=== PATIENT | female | born 1975 | race Two or more races ===

== ENCOUNTER 2023-08-20 10:06 | Inpatient (IN) | payer MEDICARE, MEDICAID ==
[~2023-08-20] VITALS: Ht 162.6 cm; Wt 54.8 kg
[2023-08-20 10:36] VITALS: PULSE 104; RESP 17; O2SAT 98
[2023-08-20] MEDS: SODIUM CHLORIDE 0.9% 1,000 ML IV ONE (11:03)
[2023-08-20 11:26] LABS: Basophils # (auto) 0 10 ^3/uL (0-0.2); Basophils % (auto) 0.2 % (0.0-2.0); Eosinophils # (auto) 0.1 10 ^3/uL (0-0.8); Eosinophils % (auto) 1.4 % (0.0-7.0); Hematocrit 31.6 % (36.0-46.0); Hemoglobin 10.2 g/dL (12.2-16.2); Lymphocytes # (auto) 1.4 10 ^3/uL (0.4-5.4); Lymphocytes % (auto) 13.9 % (10.0-50.0); Mean Corpuscular Hgb Conc. 32.3 g/dL (32.0-36.0); Mean Corpuscular Volume 86.6 fL (80.0-100.0); Monocytes # (auto) 0.6 10 ^3/uL (0-1.3); Monocytes % (auto) 5.6 % (0.0-12.0); Neutrophils # (auto) 8.1 10 ^3/uL (1.6-8.6); Neutrophils % (auto) 78.9 % (37.0-80.0); Nucleated Red Blood Cells % 0.1 %; Red Blood Cells 3.65 10^6/uL (4.0-5.20); Red Cell Distribution Width 15.4 % (11.8-14.3); White Blood Cell 10.2 10^3/uL (4.4-10.8)
[2023-08-20 12:39] LABS: Alanine Aminotransferase 13 U/L (7-40); Albumin 3.3 g/dL (3.2-4.8); Alkaline Phosphatase 98 U/L (46-116); Anion Gap 6 (5-15); Aspartate Aminotransferase 14 U/L (13-40); Blood Urea Nitrogen 20 mg/dL (9-23); Calcium 9.1 mg/dL (8.7-10.4); Carbon Dioxide 23 mmol/L (20-30); Chloride 107 mmol/L (98-107); Glucose 92 mg/dL (74-106); Potassium 4.7 mmol/L (3.5-5.1); Sodium 136 mmol/L (136-145)
[2023-08-20 12:40] LABS: Bilirubin, Total 0.3 mg/dL (0.2-1.0); Total Protein 7.2 g/dL (5.7-8.2)
[2023-08-20] MEDS ORDERED: DOCUSATE SOD 100 MG CAP PO PRN (17:00)
[2023-08-20] MEDS ORDERED: NITROGLYCERIN 0.4 MG SL TAB SL PRN (17:00)
[2023-08-20] MEDS ORDERED: ONDANSETRON HCL 4 MG/2 ML VIAL IV PRN (17:00)
[2023-08-20] MEDS ORDERED: ACETAMINOPHEN 325 MG TAB PO PRN (17:00)
[2023-08-20] MEDS ORDERED: MORPHINE SULFATE INJ 2 MG/ml SYRG IV PRN (17:00)
[2023-08-20] MEDS: SODIUM CHLORIDE 0.9% 1,000 ML IV SCH (17:00)
[2023-08-20] MEDS ORDERED: LOSA-534 PO (17:22)
[2023-08-20] MEDS ORDERED: METO25TA93 PO (17:22)
[2023-08-20] MEDS ORDERED: FERR325T20 PO (17:22)
[2023-08-20] MEDS ORDERED: METF-371 PO (17:22)
[2023-08-20] MEDS ORDERED: ATOR10TA52 PO (17:22)
[2023-08-20] MEDS ORDERED: DEXTROSE (50%) 50ML SYRG IV PRN (18:00)
[2023-08-20 18:45] LABS: Urine Bacteria FEW /hpf (None Seen); Urine Blood TRACE /uL (Negative); Urine Clarity Turbid (Clear); Urine Color Light-Yellow (Yellow); Urine Mucus FEW (None Seen); Urine Protein, UAD Negative (Negative); Urine Specific Gravity 1.013 (1.001-1.035); Urine Urobilinogen Normal (Negative); Urine WBC 29 /hpf (0 - 5); Urine pH 5.5 (5.0-9.0)
[2023-08-20 19:20] VITALS: PULSE 102; RESP 23; O2SAT 95
[2023-08-20 22:00] VITALS: BP 110/71; PULSE 103; RESP 18; TEMP 98; O2SAT 93
[2023-08-20] MEDS: FERROUS SULFATE 325mg EC TAB PO SCH (22:00)
[2023-08-20] MEDS: InsuLIN REG 1unit/0.01ml Soln (100units/ml) SC SCH (22:00)
[2023-08-20] MEDS: ACCU-CHEK COMFORT CURVE STRIP VI SCH (22:00)
[2023-08-20 22:02] VITALS: PULSE 103
[2023-08-21 05:00] VITALS: BP 110/59; PULSE 95; RESP 18; TEMP 97.6; O2SAT 90
[2023-08-21] MEDS: PANTOPRAZOLE 40 MG TAB PO SCH (05:40)
[2023-08-21 07:28] LABS: Basophils # (auto) 0 10 ^3/uL (0-0.2); Basophils % (auto) 0.2 % (0.0-2.0); Eosinophils # (auto) 0.1 10 ^3/uL (0-0.8); Eosinophils % (auto) 1.3 % (0.0-7.0); Hematocrit 31.1 % (36.0-46.0); Hemoglobin 9.7 g/dL (12.2-16.2); Lymphocytes # (auto) 1.3 10 ^3/uL (0.4-5.4); Lymphocytes % (auto) 16.8 % (10.0-50.0); Mean Corpuscular Hemoglobin 27.8 pg (28.0-32.0); Mean Corpuscular Hgb Conc. 31.3 g/dL (32.0-36.0); Mean Corpuscular Volume 88.7 fL (80.0-100.0); Monocytes # (auto) 0.5 10 ^3/uL (0-1.3); Monocytes % (auto) 6.7 % (0.0-12.0); Neutrophils # (auto) 5.7 10 ^3/uL (1.6-8.6); Nucleated Red Blood Cells % 0.2 %; Red Cell Distribution Width 15.7 % (11.8-14.3); White Blood Cell 7.6 10^3/uL (4.4-10.8)
[2023-08-21 07:37] LABS: Alanine Aminotransferase 10 U/L (7-40); Albumin 2.9 g/dL (3.2-4.8); Alkaline Phosphatase 90 U/L (46-116); Anion Gap 5 (5-15); Aspartate Aminotransferase 15 U/L (13-40); BUN/Creatinine Ratio 24.3 (10.0-20.0); Bilirubin, Total 0.4 mg/dL (0.2-1.0); Blood Urea Nitrogen 18 mg/dL (9-23); Calcium 8.2 mg/dL (8.5-10.1); Carbon Dioxide 22 mmol/L (20-30); Chloride 110 mmol/L (98-107); Glucose 78 mg/dL (74-106); Potassium 4.7 mmol/L (3.5-5.1); Sodium 137 mmol/L (136-145); Total Protein 5.8 g/dL (5.7-8.2)
[2023-08-21 08:00] VITALS: PULSE 106; PULSE 94; RESP 20; O2SAT 20
[2023-08-21] MEDS: LOSARTAN POTASSIUM 50 MG TAB PO SCH (08:24)
[2023-08-21] MEDS: ATORVASTATIN 20 MG TAB PO SCH (08:25)
[2023-08-21] MEDS: METOPROLOL SUCCINATE XL 50 MG TAB PO SCH (08:29)
[2023-08-21 09:00] VITALS: BP 114/73; PULSE 94; RESP 20; TEMP 97.5; O2SAT 96
[2023-08-21 13:00] VITALS: BP 114/56; PULSE 70; RESP 20; TEMP 98.1; O2SAT 96
[2023-08-21] MEDS: cefTRIAXone 1GM/50ML D5W 50 ML IV ONE (16:51)
[2023-08-21] MEDS: SODIUM CHLORIDE 0.9% 1,000 ML IV SCH (16:56)
[2023-08-21 17:00] VITALS: BP 115/74; PULSE 96; RESP 20; TEMP 98.1; O2SAT 90
[2023-08-21 20:00] VITALS: PULSE 92; RESP 20; O2SAT 20
[2023-08-22] VITALS (8 sets, daily range): BP systolic 95–122; BP diastolic 59–85; PULSE 75–104; RESP 16–20; TEMP 97.1–98.7; O2SAT 20–97
[2023-08-22 07:06] LABS: Anion Gap 5 (5-15); Carbon Dioxide 24 mmol/L (20-30); Chloride 109 mmol/L (98-107); Sodium 138 mmol/L (136-145)
[2023-08-22 07:07] LABS: Calcium 8.3 mg/dL (8.5-10.1)
[2023-08-22 07:12] LABS: BUN/Creatinine Ratio 10.8 (10.0-20.0); Glucose 82 mg/dL (74-106); Triglycerides 101 mg/dL (< 150)
[2023-08-22 07:13] LABS: Blood Urea Nitrogen 8 mg/dL (9-23); LDL Cholesterol 39 mg/dL (< 100)
[2023-08-22 07:14] LABS: Cholesterol 85 mg/dL (< 200); HDL Cholesterol 33 mg/dL (40-59)
[2023-08-22 07:25] LABS: Magnesium 0.9 mg/dL (1.6-2.6)
[2023-08-22] MEDS: cefTRIAXone 1GM/50ML D5W 50 ML IV SCH (08:36)
[2023-08-22] MEDS: MAGNESIUM SULFATE 1GM/100ML 100 ML IV SCH (10:20)
[2023-08-22] MEDS: MAGNESIUM OXIDE 400 MG TAB PO SCH (13:54)
[2023-08-22] MEDS: GENTAMICIN OPTH sol 0.3% 5ml EACHEYE SCH (18:30)
[2023-08-23] VITALS (7 sets, daily range): BP systolic 91–134; BP diastolic 57–88; PULSE 61–93; RESP 16–20; TEMP 97.9–98.6; O2SAT 92–97
[2023-08-23 06:09] LABS: Anion Gap 6 (5-15); Carbon Dioxide 22 mmol/L (20-30); Chloride 108 mmol/L (98-107); Potassium 4.4 mmol/L (3.5-5.1); Sodium 136 mmol/L (136-145)
[2023-08-23 06:10] LABS: Calcium 8.5 mg/dL (8.7-10.4)
[2023-08-23 06:15] LABS: BUN/Creatinine Ratio 8.3 (10.0-20.0); Blood Urea Nitrogen 7 mg/dL (9-23); Glucose 83 mg/dL (74-106)
[2023-08-23 06:16] LABS: Magnesium 1.5 mg/dL (1.6-2.6)
[2023-08-23] MEDS: MAGNESIUM SULFATE 1GM/100ML 100 ML IV SCH (10:13)
[2023-08-23] MEDS ORDERED: GENT0.3S10 EACHEYE (14:27)
[2023-08-23] MEDS ORDERED: MAGN400T40 PO (14:27)
[2023-08-23] MEDS ORDERED: CIPR-273 PO (14:27)
== END 2023-08-23 19:21 | disposition home or self-care (01) | DRG 640 ==
LOC: EDBD 10:06 → ER 10:06 → TELE 17:22 → TELE-WESTW 17:22
PROVIDERS: ADMIT Nurse Practitioner Family; ATTEND Internal Medicine Geriatric Medicine
DX: E86.0 Dehydration (principal); G93.41 Metabolic encephalopathy; N39.0 Urinary tract infection, site not specified; Q21.10 Atrial septal defect, unspecified; R47.01 Aphasia; N28.9 Disorder of kidney and ureter, unspecified; G80.9 Cerebral palsy, unspecified; I10 Essential (primary) hypertension; E78.5 Hyperlipidemia, unspecified; E11.9 Type 2 diabetes mellitus without complications; R01.1 Cardiac murmur, unspecified; E83.42 Hypomagnesemia; I27.20 Pulmonary hypertension, unspecified; D64.9 Anemia, unspecified; Z79.84 Long term (current) use of oral hypoglycemic drugs
CPT/HCPCS: 36415; 71045; 80048; 80053; 80061; 81001; 82962; 83735; 83930; 84443; 84484; 85025; 87081; 87086; 87088; 87186; 93306; 96360; 96361; G0378; J1815

== ENCOUNTER 2023-10-17 18:33 | Inpatient (IN) | payer MEDICARE, MEDICAID ==
[~2023-10-17] VITALS: Ht 152.4 cm; Wt 53.7 kg
[2023-10-17] MEDS: levoFLOXacin 250MG 50 ML IV ONE (01:00)
[2023-10-17] MEDS: SODIUM CHLORIDE 0.9% 1,000 ML IV SCH (01:00)
[2023-10-17] MEDS: SODIUM CHLORIDE 0.9% 500 ML IVB ONE (08:00)
[~2023-10-17 18:33] MED LIST: ATOR10TA52 PO; CIPR-273 PO; FERR325T20 PO; GENT0.3S10 EACHEYE; LOSA-534 PO; MAGN400T40 PO; METF-371 PO; METO25TA93 PO
[2023-10-17 20:06] LABS: Basophils # (auto) 0 10 ^3/uL (0-0.2); Basophils % (auto) 0.2 % (0.0-2.0); Eosinophils # (auto) 0 10 ^3/uL (0-0.8); Eosinophils % (auto) 0.4 % (0.0-7.0); Hematocrit 25.8 % (36.0-46.0); Lymphocytes # (auto) 0.7 10 ^3/uL (0.4-5.4); Lymphocytes % (auto) 6.1 % (10.0-50.0); Mean Corpuscular Hemoglobin 25.9 pg (28.0-32.0); Mean Corpuscular Hgb Conc. 31.1 g/dL (32.0-36.0); Mean Corpuscular Volume 83.1 fL (80.0-100.0); Monocytes # (auto) 0.6 10 ^3/uL (0-1.3); Monocytes % (auto) 5.2 % (0.0-12.0); Neutrophils # (auto) 10.8 10 ^3/uL (1.6-8.6); Neutrophils % (auto) 88.1 % (37.0-80.0); Platelet Count (auto) 341 10^3/uL (140-450); White Blood Cell 12.3 10^3/uL (4.4-10.8)
[2023-10-17 20:34] LABS: Alanine Aminotransferase 17 U/L (7-40); Albumin 3.2 g/dL (3.2-4.8); Alkaline Phosphatase 138 U/L (46-116); Anion Gap 7 (5-15); Aspartate Aminotransferase 20 U/L (13-40); BUN/Creatinine Ratio 16.5 (10.0-20.0); Blood Urea Nitrogen 23 mg/dL (9-23); Calcium 8.5 mg/dL (8.7-10.4); Carbon Dioxide 22 mmol/L (20-30); Chloride 107 mmol/L (98-107); Glucose 164 mg/dL (74-106); Potassium 5.5 mmol/L (3.5-5.1); Sodium 136 mmol/L (136-145)
[2023-10-17 20:35] LABS: Bilirubin, Total 0.2 mg/dL (0.2-1.0); Total Protein 6.5 g/dL (5.7-8.2)
[2023-10-17 20:57] LABS: Lactic Acid w/Reflex 4.5 mmol/L (0.4-2.0)
[2023-10-17] MEDS: SODIUM CHLORIDE 0.9% 1,350 ML IV ONE (22:05)
[2023-10-17] MEDS: cefTRIAXone 1GM/50ML D5W 50 ML IV ONE (23:19)
[2023-10-17] MEDS: metroNIDAZOLE 500MG/100ML 100 ML IV ONE (23:19)
[2023-10-17] MEDS ORDERED: DEXTROSE (50%) 50ML SYRG IV PRN (23:30)
[2023-10-17] MEDS ORDERED: NITROGLYCERIN 0.4 MG SL TAB SL PRN (23:30)
[2023-10-17] MEDS ORDERED: MORPHINE SULFATE INJ 2 MG/ml SYRG IV PRN (23:30)
[2023-10-17] MEDS ORDERED: ACETAMINOPHEN 325 MG TAB PO PRN (23:30)
[2023-10-17] MEDS ORDERED: ONDANSETRON HCL 4 MG/2 ML VIAL IV PRN (23:30)
[2023-10-18] VITALS (7 sets, daily range): BP systolic 74–123; BP diastolic 40–76; PULSE 94–153; RESP 20–22; TEMP 98–101.4; O2SAT 92–99
[2023-10-18] MEDS: InsuLIN REG 1unit/0.01ml Soln (100units/ml) SC SCH (01:00)
[2023-10-18] MEDS: ACCU-CHEK COMFORT CURVE STRIP VI SCH (01:00)
[2023-10-18 01:30] LABS: Urine Bacteria FEW /hpf (None Seen); Urine Blood 2+ /uL (Negative); Urine Clarity Turbid (Clear); Urine Color Colorless (Yellow); Urine Protein, UAD Negative (Negative); Urine Specific Gravity 1.012 (1.001-1.035); Urine Urobilinogen Normal (Negative); Urine WBC 333 /hpf (0 - 5); Urine WBC Clumps PRESENT /hpf (None Seen); Urine pH 6.5 (5.0-9.0)
[2023-10-18] MEDS: dilTIAZem 25 MG/5 ML VIAL IV ONE (04:00)
[2023-10-18 04:12] LABS: Basophils # (auto) 0 10 ^3/uL (0-0.2); Eosinophils # (auto) 0 10 ^3/uL (0-0.8); Hematocrit 26.5 % (36.0-46.0); Hemoglobin 8.2 g/dL (12.2-16.2); Lymphocytes # (auto) 0.6 10 ^3/uL (0.4-5.4); Mean Corpuscular Hemoglobin 25.8 pg (28.0-32.0); Mean Corpuscular Hgb Conc. 31.1 g/dL (32.0-36.0); Mean Corpuscular Volume 83.1 fL (80.0-100.0); Monocytes # (auto) 0.6 10 ^3/uL (0-1.3); Monocytes % (auto) 5.2 % (0.0-12.0); Neutrophils # (auto) 10.4 10 ^3/uL (1.6-8.6); Neutrophils % (auto) 89.8 % (37.0-80.0); Nucleated Red Blood Cells % 0.1 %; Platelet Count (auto) 324 10^3/uL (140-450); Red Blood Cells 3.19 10^6/uL (4.0-5.20); Red Cell Distribution Width 14.9 % (11.8-14.3); White Blood Cell 11.6 10^3/uL (4.4-10.8)
[2023-10-18 04:32] LABS: Alanine Aminotransferase 20 U/L (7-40); Albumin 3.2 g/dL (3.2-4.8); Alkaline Phosphatase 132 U/L (46-116); Anion Gap 5 (5-15); Aspartate Aminotransferase 22 U/L (13-40); BUN/Creatinine Ratio 17.1 (10.0-20.0); Bilirubin, Total 0.3 mg/dL (0.2-1.0); Blood Urea Nitrogen 20 mg/dL (9-23); Calcium 8.2 mg/dL (8.7-10.4); Carbon Dioxide 23 mmol/L (20-30); Chloride 111 mmol/L (98-107); Glucose 146 mg/dL (74-106); Potassium 5.2 mmol/L (3.5-5.1); Sodium 139 mmol/L (136-145); Total Protein 6.9 g/dL (5.7-8.2)
[2023-10-18] MEDS: metroNIDAZOLE 500MG/100ML 100 ML IV SCH (06:55)
[2023-10-18] MEDS: ALBUMIN 5% 250 ML IV ONE ×2 (07:15→08:25)
[2023-10-18] MEDS: SODIUM CHLORIDE 0.9% 1,000 ML IV SCH ×2 (09:13→09:52)
[2023-10-18] MEDS: ENOXAPARIN SOD 40 MG/0.4 ML SYRINGE SC SCH (10:01)
[2023-10-18 10:38] LABS: % Iron Saturation 6.7 % (15-50)
[2023-10-18] MEDS: PIPERACILLIN-TAZO 4.5GM 100 ML IV ONE (11:09)
[2023-10-18] MEDS: PANTOPRAZOLE 40 MG/10 ML VIAL INJ IV ONE (11:30)
[2023-10-18] MEDS ORDERED: VANCOMYCIN PER PHARMACY 0 MG IV SCH (11:30)
[2023-10-18] MEDS ORDERED: PIPERACILLIN-TAZO 4.5GM 100 ML IV SCH (12:00)
[2023-10-18] MEDS: VANCOMYCIN 1.25GM/250ML 250 ML IV ONE (12:30)
[2023-10-18] MEDS: MAGNESIUM SULFATE 1GM/100ML 100 ML IV SCH (13:00)
[2023-10-18] MEDS: MEROPENEM 1GM IVPB 50 ML IV ONE (13:45)
[2023-10-18] MEDS ORDERED: PIPERACILLIN-TAZOB 3.375GM 100 ML IV SCH (14:00)
[2023-10-18] MEDS: MEROPENEM 1GM IVPB 50 ML IV SCH (14:12)
[2023-10-18 19:14] LABS: Basophils # (auto) 0 10 ^3/uL (0-0.2); Eosinophils # (auto) 0 10 ^3/uL (0-0.8); Hemoglobin 8.8 g/dL (12.2-16.2); Lymphocytes # (auto) 0.7 10 ^3/uL (0.4-5.4); Monocytes # (auto) 0.8 10 ^3/uL (0-1.3); Red Cell Distribution Width 15.4 % (11.8-14.3)
[2023-10-18 19:16] LABS: Hematocrit 29.4 % (36.0-46.0); Lymphocytes % (auto) 5.2 % (10.0-50.0); Mean Corpuscular Hemoglobin 26.1 pg (28.0-32.0); Mean Corpuscular Volume 86.8 fL (80.0-100.0); Monocytes % (auto) 6.3 % (0.0-12.0); Neutrophils # (auto) 11.2 10 ^3/uL (1.6-8.6); Neutrophils % (auto) 88.5 % (37.0-80.0); Platelet Count (auto) 326 10^3/uL (140-450); Red Blood Cells 3.39 10^6/uL (4.0-5.20); White Blood Cell 12.6 10^3/uL (4.4-10.8)
[2023-10-18 19:42] LABS: Alanine Aminotransferase 17 U/L (7-40); Albumin 3.2 g/dL (3.2-4.8); Alkaline Phosphatase 119 U/L (46-116); Anion Gap 10 (5-15); Aspartate Aminotransferase 16 U/L (13-40); Blood Urea Nitrogen 15 mg/dL (9-23); Carbon Dioxide 19 mmol/L (20-30); Chloride 109 mmol/L (98-107); Glucose 240 mg/dL (74-106); Sodium 138 mmol/L (136-145)
[2023-10-18 19:43] LABS: Magnesium 1.3 mg/dL (1.6-2.6)
[2023-10-18 19:44] LABS: Bilirubin, Total 0.5 mg/dL (0.2-1.0); Total Protein 6.8 g/dL (5.7-8.2)
[2023-10-18 19:56] LABS: Amphetamine Screen, Urine Neg (NEGATIVE); Barbiturate Scree,Urine Neg (NEGATIVE); Benzodiazephine Screen, Urine Neg (NEGATIVE); Cocaine Screen, Urine Neg (NEGATIVE); Opiate Scree,Urine Neg (NEGATIVE)
[2023-10-18 19:57] LABS: Cannabinoid Screen, Urine Neg (NEGATIVE); Phencyclidine Screen, Urine Neg (NEGATIVE)
[2023-10-18 20:13] LABS: COVID19 ANTIGEN SOFIA FIA NEGATIVE (NEGATIVE); Rapid Influenza A Negative (Negative); Rapid Influenza B Negative (Negative)
[2023-10-18] MEDS: ACETAMINOPHEN 325 MG TAB PO SCH (21:27)
[2023-10-18] MEDS: MAGNESIUM SULFATE 1GM/100ML 100 ML IV ONE (21:49)
[2023-10-18] MEDS ORDERED: levoFLOXacin 250MG 50 ML IV SCH (22:00)
[2023-10-19] VITALS (91 sets, daily range): BP systolic 74–142; BP diastolic 41–90; PULSE 78–124; RESP 11–59; TEMP 96.3–98.7; O2SAT 93–100
[2023-10-19] MEDS: SODIUM CHLORIDE 0.9% 500 ML IV ONE (00:28)
[2023-10-19] MEDS: MIDODRINE HCL 10 MG TAB PO ONE (01:00)
[2023-10-19] MEDS: VANCOMYCIN 1GM/200ML 200 ML IV SCH (02:19)
[2023-10-19] MEDS: NOREPINEPHRINE 8 MG/250ML KIT 250 ML IV SCH (03:37)
[2023-10-19 04:12] LABS: Basophils # (auto) 0 10 ^3/uL (0-0.2); Basophils % (auto) 0.1 % (0.0-2.0); Eosinophils # (auto) 0 10 ^3/uL (0-0.8); Lymphocytes # (auto) 0.7 10 ^3/uL (0.4-5.4); Monocytes # (auto) 0.6 10 ^3/uL (0-1.3)
[2023-10-19 04:14] LABS: Eosinophils % (auto) 0.4 % (0.0-7.0); Hematocrit 22.3 % (36.0-46.0); Lymphocytes % (auto) 10.5 % (10.0-50.0); Mean Corpuscular Hemoglobin 26.7 pg (28.0-32.0); Mean Corpuscular Hgb Conc. 31.1 g/dL (32.0-36.0); Mean Corpuscular Volume 85.7 fL (80.0-100.0); Monocytes % (auto) 9.2 % (0.0-12.0); Neutrophils # (auto) 5.6 10 ^3/uL (1.6-8.6); Neutrophils % (auto) 79.8 % (37.0-80.0); Platelet Count (auto) 255 10^3/uL (140-450); Red Blood Cells 2.61 10^6/uL (4.0-5.20); Red Cell Distribution Width 15.2 % (11.8-14.3)
[2023-10-19 04:23] LABS: Alanine Aminotransferase 14 U/L (7-40); Albumin 2.5 g/dL (3.2-4.8); Alkaline Phosphatase 95 U/L (46-116); Anion Gap 7 (5-15); Aspartate Aminotransferase 12 U/L (13-40); BUN/Creatinine Ratio 11.4 (10.0-20.0); Blood Urea Nitrogen 12 mg/dL (9-23); Calcium 7.2 mg/dL (8.7-10.4); Carbon Dioxide 18 mmol/L (20-30); Chloride 113 mmol/L (98-107); Glucose 103 mg/dL (74-106); Magnesium 1.7 mg/dL (1.6-2.6); Potassium 3.9 mmol/L (3.5-5.1); Sodium 138 mmol/L (136-145)
[2023-10-19 04:24] LABS: Bilirubin, Total 0.3 mg/dL (0.2-1.0); Total Protein 5.5 g/dL (5.7-8.2)
[2023-10-19] MEDS: MIDODRINE HCL 10 MG TAB PO SCH (05:22)
[2023-10-19] MEDS: PANTOPRAZOLE 40 MG/10 ML VIAL INJ IV SCH (10:25)
[2023-10-19] MEDS: AZITHROMYCIN 500MG/ 250ML 250 ML IV SCH (10:29)
[2023-10-19] MEDS: metroNIDAZOLE 500MG/100ML 100 ML IV ONE (10:31)
[2023-10-19 13:31] LABS: Basophils # (auto) 0 10 ^3/uL (0-0.2); Basophils % (auto) 0.1 % (0.0-2.0); Eosinophils # (auto) 0.1 10 ^3/uL (0-0.8); Eosinophils % (auto) 0.7 % (0.0-7.0); Hematocrit 36.6 % (36.0-46.0); Hemoglobin 11.5 g/dL (12.2-16.2); Lymphocytes # (auto) 0.5 10 ^3/uL (0.4-5.4); Lymphocytes % (auto) 5.5 % (10.0-50.0); Mean Corpuscular Hemoglobin 27.9 pg (28.0-32.0); Mean Corpuscular Hgb Conc. 31.3 g/dL (32.0-36.0); Monocytes # (auto) 0.4 10 ^3/uL (0-1.3); Monocytes % (auto) 3.9 % (0.0-12.0); Neutrophils # (auto) 8.4 10 ^3/uL (1.6-8.6); Neutrophils % (auto) 89.8 % (37.0-80.0); Platelet Count (auto) 281 10^3/uL (140-450); Red Blood Cells 4.12 10^6/uL (4.0-5.20); Red Cell Distribution Width 16.2 % (11.8-14.3); White Blood Cell 9.3 10^3/uL (4.4-10.8)
[2023-10-19] MEDS: metroNIDAZOLE 500MG/100ML 100 ML IV SCH (15:10)
[2023-10-20] VITALS (55 sets, daily range): BP systolic 88–142; BP diastolic 48–85; PULSE 24–124; RESP 10–47; TEMP 96.4–101.1; O2SAT 88–100
[2023-10-20] MEDS: ALBUTEROL SULF 2.5 MG/0.5ML(0.5%) NEB SOLN NEB PRN (03:07)
[2023-10-20 06:03] LABS: Basophils # (auto) 0 10 ^3/uL (0-0.2); Basophils % (auto) 0.2 % (0.0-2.0); Eosinophils # (auto) 0.3 10 ^3/uL (0-0.8); Hematocrit 35.1 % (36.0-46.0); Hemoglobin 11.3 g/dL (12.2-16.2); Lymphocytes # (auto) 0.6 10 ^3/uL (0.4-5.4); Lymphocytes % (auto) 6.9 % (10.0-50.0); Mean Corpuscular Hemoglobin 27.8 pg (28.0-32.0); Mean Corpuscular Hgb Conc. 32.2 g/dL (32.0-36.0); Mean Corpuscular Volume 86.6 fL (80.0-100.0); Monocytes # (auto) 0.5 10 ^3/uL (0-1.3); Monocytes % (auto) 5.2 % (0.0-12.0); Neutrophils # (auto) 7.5 10 ^3/uL (1.6-8.6); Neutrophils % (auto) 84.7 % (37.0-80.0); Nucleated Red Blood Cells % 0.1 %; Platelet Count (auto) 305 10^3/uL (140-450); Red Blood Cells 4.06 10^6/uL (4.0-5.20); Red Cell Distribution Width 15.7 % (11.8-14.3); White Blood Cell 8.9 10^3/uL (4.4-10.8)
[2023-10-20 06:23] LABS: Alanine Aminotransferase 14 U/L (7-40); Albumin 2.8 g/dL (3.2-4.8); Alkaline Phosphatase 105 U/L (46-116); Anion Gap 7 (5-15); Calcium 8.2 mg/dL (8.7-10.4); Carbon Dioxide 17 mmol/L (20-30); Chloride 114 mmol/L (98-107); Glucose 100 mg/dL (74-106); Magnesium 1.6 mg/dL (1.6-2.6); Potassium 4.1 mmol/L (3.5-5.1); Sodium 138 mmol/L (136-145)
[2023-10-20 06:24] LABS: Aspartate Aminotransferase 19 U/L (13-40); Total Protein 6.2 g/dL (5.7-8.2)
[2023-10-20 06:29] LABS: BUN/Creatinine Ratio 8.9 (10.0-20.0); Bilirubin, Total 0.4 mg/dL (0.2-1.0); Blood Urea Nitrogen 8 mg/dL (9-23)
[2023-10-20] MEDS: MAGNESIUM SULFATE 1GM/100ML 100 ML IV ONE (15:30)
[2023-10-20] MEDS: ACETAMINOPHEN 500 MG TAB PO PRN (20:27)
[2023-10-21] VITALS (27 sets, daily range): BP systolic 73–137; BP diastolic 38–97; PULSE 60–119; RESP 14–26; TEMP 96.9–98.1; O2SAT 94–100
[2023-10-21 08:52] LABS: Basophils # (auto) 0 10 ^3/uL (0-0.2); Basophils % (auto) 0.2 % (0.0-2.0); Eosinophils # (auto) 0.5 10 ^3/uL (0-0.8); Eosinophils % (auto) 6.7 % (0.0-7.0); Hemoglobin 10.9 g/dL (12.2-16.2); Lymphocytes # (auto) 1.1 10 ^3/uL (0.4-5.4); Lymphocytes % (auto) 15.6 % (10.0-50.0); Mean Corpuscular Hemoglobin 27.7 pg (28.0-32.0); Mean Corpuscular Volume 86.6 fL (80.0-100.0); Monocytes # (auto) 0.6 10 ^3/uL (0-1.3); Monocytes % (auto) 8.9 % (0.0-12.0); Neutrophils # (auto) 4.8 10 ^3/uL (1.6-8.6); Neutrophils % (auto) 68.6 % (37.0-80.0); Platelet Count (auto) 311 10^3/uL (140-450); Red Blood Cells 3.92 10^6/uL (4.0-5.20); Red Cell Distribution Width 16.3 % (11.8-14.3)
[2023-10-21 08:57] LABS: Alanine Aminotransferase 16 U/L (7-40); Albumin 2.7 g/dL (3.2-4.8); Alkaline Phosphatase 121 U/L (46-116); Anion Gap 4 (5-15); Aspartate Aminotransferase 21 U/L (13-40); BUN/Creatinine Ratio 10.1 (10.0-20.0); Bilirubin, Total 0.3 mg/dL (0.2-1.0); Blood Urea Nitrogen 10 mg/dL (9-23); Calcium 8.3 mg/dL (8.7-10.4); Carbon Dioxide 21 mmol/L (20-30); Chloride 111 mmol/L (98-107); Glucose 82 mg/dL (74-106); Magnesium 1.5 mg/dL (1.6-2.6); Potassium 4.6 mmol/L (3.5-5.1); Sodium 136 mmol/L (136-145); Total Protein 5.8 g/dL (5.7-8.2)
[2023-10-21] MEDS: MAGNESIUM SULFATE 1GM/100ML 100 ML IV SCH (13:27)
[2023-10-22] VITALS (27 sets, daily range): BP systolic 83–144; BP diastolic 44–89; PULSE 77–135; RESP 13–26; TEMP 96.9–98.6; O2SAT 92–100
[2023-10-22 08:59] LABS: Basophils # (auto) 0 10 ^3/uL (0-0.2); Basophils % (auto) 0.1 % (0.0-2.0); Eosinophils # (auto) 0.4 10 ^3/uL (0-0.8); Eosinophils % (auto) 3.8 % (0.0-7.0); Hematocrit 34.7 % (36.0-46.0); Hemoglobin 11.5 g/dL (12.2-16.2); Lymphocytes # (auto) 0.7 10 ^3/uL (0.4-5.4); Lymphocytes % (auto) 7.2 % (10.0-50.0); Mean Corpuscular Hemoglobin 28.1 pg (28.0-32.0); Mean Corpuscular Hgb Conc. 33.1 g/dL (32.0-36.0); Monocytes # (auto) 0.5 10 ^3/uL (0-1.3); Monocytes % (auto) 4.7 % (0.0-12.0); Neutrophils # (auto) 8.4 10 ^3/uL (1.6-8.6); Neutrophils % (auto) 84.2 % (37.0-80.0); Platelet Count (auto) 347 10^3/uL (140-450); Red Blood Cells 4.08 10^6/uL (4.0-5.20); Red Cell Distribution Width 16.5 % (11.8-14.3)
[2023-10-22 09:19] LABS: Alanine Aminotransferase 24 U/L (7-40); Alkaline Phosphatase 204 U/L (46-116); Anion Gap 6 (5-15); BUN/Creatinine Ratio 8.7 (10.0-20.0); Blood Urea Nitrogen 8 mg/dL (9-23); Calcium 8.9 mg/dL (8.7-10.4); Carbon Dioxide 20 mmol/L (20-30); Chloride 107 mmol/L (98-107); Glucose 95 mg/dL (74-106); Magnesium 1.8 mg/dL (1.6-2.6); Potassium 4.6 mmol/L (3.5-5.1); Sodium 133 mmol/L (136-145)
[2023-10-22 09:20] LABS: Albumin 2.8 g/dL (3.2-4.8); Aspartate Aminotransferase 45 U/L (13-40); Bilirubin, Total 0.4 mg/dL (0.2-1.0); Total Protein 6.1 g/dL (5.7-8.2)
[2023-10-22] MEDS: MAGNESIUM OXIDE 400 MG TAB PO ONE (14:21)
[2023-10-22] MEDS: METOPROLOL TARTRATE 25 MG TAB PO ONE (14:23)
[2023-10-22] MEDS: METOPROLOL TARTRATE 25 MG TAB PO SCH (21:50)
[2023-10-23] VITALS (22 sets, daily range): BP systolic 92–132; BP diastolic 49–84; PULSE 68–105; RESP 14–23; TEMP 97.1–98.5; O2SAT 87–100
[2023-10-23 05:04] LABS: Basophils # (auto) 0 10 ^3/uL (0-0.2); Basophils % (auto) 0.4 % (0.0-2.0); Eosinophils # (auto) 0.4 10 ^3/uL (0-0.8); Eosinophils % (auto) 4.4 % (0.0-7.0); Hematocrit 32.5 % (36.0-46.0); Hemoglobin 10.8 g/dL (12.2-16.2); Lymphocytes # (auto) 1.1 10 ^3/uL (0.4-5.4); Lymphocytes % (auto) 11.8 % (10.0-50.0); Mean Corpuscular Hemoglobin 28.2 pg (28.0-32.0); Mean Corpuscular Hgb Conc. 33.2 g/dL (32.0-36.0); Monocytes # (auto) 0.6 10 ^3/uL (0-1.3); Monocytes % (auto) 6.5 % (0.0-12.0); Neutrophils # (auto) 6.9 10 ^3/uL (1.6-8.6); Neutrophils % (auto) 76.9 % (37.0-80.0); Nucleated Red Blood Cells % 0.1 %; Platelet Count (auto) 339 10^3/uL (140-450); Red Blood Cells 3.82 10^6/uL (4.0-5.20); Red Cell Distribution Width 16.5 % (11.8-14.3)
[2023-10-23 05:25] LABS: Alanine Aminotransferase 33 U/L (7-40); Albumin 2.5 g/dL (3.2-4.8); Alkaline Phosphatase 293 U/L (46-116); Anion Gap 4 (5-15); Aspartate Aminotransferase 58 U/L (13-40); BUN/Creatinine Ratio 14.4 (10.0-20.0); Blood Urea Nitrogen 13 mg/dL (9-23); Calcium 8.5 mg/dL (8.7-10.4); Carbon Dioxide 24 mmol/L (20-30); Chloride 107 mmol/L (98-107); Glucose 80 mg/dL (74-106); Magnesium 1.5 mg/dL (1.6-2.6); Potassium 4.8 mmol/L (3.5-5.1); Sodium 135 mmol/L (136-145)
[2023-10-23 05:26] LABS: Bilirubin, Total 0.3 mg/dL (0.2-1.0); Total Protein 5.5 g/dL (5.7-8.2)
[2023-10-23] MEDS: MAGNESIUM SULFATE 1GM/100ML 100 ML IV SCH (07:12)
[2023-10-23] MEDS: FLORASTOR (S. BOULARDII) 250 MG CAP PO SCH (08:39)
[2023-10-23] MEDS: ERTAPENEM SOD INJ 1 GM in SODIUM CHL 0.9% 50 ML IV SCH (08:40)
[2023-10-23] MEDS: MAGNESIUM SULFATE 1GM/100ML 100 ML IV ONE (09:50)
== END 2023-10-23 18:15 | DRG 871 ==
LOC: EDBD 18:33 → ER 18:33 → TELE 23:23 → TELE-WESTW 10-18 15:18 → ICU WEST 10-19 01:38 → DOU IN ICU 10-20 16:14
PROVIDERS: ADMIT Internal Medicine; ATTEND Internal Medicine
PROC: 30233N1 Transfusion of Nonautologous Red Blood Cells into Peripheral Vein, Percutaneous Approach (ICD-10-PCS; 2023-10-19)
PROC: 05HD33Z Insertion of Infusion Device into Right Cephalic Vein, Percutaneous Approach (ICD-10-PCS; principal; 2023-10-23)
PROC: B54MZZA Ultrasonography of Right Upper Extremity Veins, Guidance (ICD-10-PCS; 2023-10-23)
DX: A41.9 Sepsis, unspecified organism (principal); G93.41 Metabolic encephalopathy; R65.21 Severe sepsis with septic shock; J69.0 Pneumonitis due to inhalation of food and vomit; J96.01 Acute respiratory failure with hypoxia; N17.0 Acute kidney failure with tubular necrosis; N39.0 Urinary tract infection, site not specified; K57.32 Diverticulitis of large intestine without perforation or abscess without bleeding; E11.9 Type 2 diabetes mellitus without complications; R62.50 Unspecified lack of expected normal physiological development in childhood; E87.5 Hyperkalemia; I10 Essential (primary) hypertension; Z20.822 Contact with and (suspected) exposure to COVID-19; G80.9 Cerebral palsy, unspecified; D50.9 Iron deficiency anemia, unspecified; I27.20 Pulmonary hypertension, unspecified; E78.5 Hyperlipidemia, unspecified; E83.42 Hypomagnesemia; K52.9 Noninfective gastroenteritis and colitis, unspecified; Z74.01 Bed confinement status
CPT/HCPCS: 36415; 36600; 71045; 74176; 80053; 80202; 80307; 81001; 82270; 82805; 82962; 83036; 83540; 83550; 83605; 83735; 83880; 84443; 84702; 85025; 86850; 86900; 86901; 86920; 87040; 87045; 87077; 87081; 87086; 87186; 87426; 87427; 87804; 92610; 94640; 96365; 96375; 99291; G0378; J1335; J1815; J2185; J2470; J2543; J3490

== ENCOUNTER 2024-04-06 10:48 | Inpatient (IN) | payer MEDICARE, MEDICAID ==
[~2024-04-06] VITALS: Ht 149.9 cm; Wt 66.5 kg
--- NOTE | 2024-04-06 11:14 | ED.PDOC ---
History of Present Illness HPI Comments 48-year-old female with past medical history of colon cancer, diabetes mellitus, hypertension, cerebral palsy,bed bound, legally blind and deaf, presents to the ED via EMS for an evaluation of hypotension today. EMS reports patient is coming from a boarding [facility] where she resides, state staff noticed hypotensive episode at 70 systolic with a heart rate of 130. On scene, EMS repeated vitals showing a blood pressure of 93 and 101 systolic with heart rate ranging in between 120-140 and SPO2 at 89-90%. Patient was placed on 2 liters oxygen via NC bringing saturation levels back up to 98%. Patient has a history of similar episode back in December 2023 which she was seen at this ED for and was diagnosed with sepsis from Urine routine showing evidence of UTI. Blood culture revealed E Coli ESBL. Chest x-ray showed possibility of aspiration pneumonia. Chief Complaint: Low Blood Pressure Time Seen by MD: 10:56 Primary Care Provider: UNKNOWN Reviewed Notes: Nurses Notes, Hadoop Infrastructure Architect Notes, Medications, Allergies Allergies: Coded Allergies: No Known Drug Allergy (Verified Allergy, Unknown, 08/20/23) Home Meds Active Scripts Magnesium Oxide (MAGNESIUM OXIDE) 400 Mg Tab, 1 TAB PO DAILY, #10 TAB Prov:VEENA CLEMENTS MD 08/23/23 Gentamicin Sulfate (Gentamicin Sulfate) 0.3 % Chani, 1 DROP EACHEYE QID for 5 Days, #5 ML Prov:VEENA CLEMENTS MD 08/23/23 Ciprofloxacin Hcl (Cipro) 250 Mg Tab, 250 MG PO BID for 5 Days, #10 TAB Prov:VEENA CLEMENTS MD 08/23/23 Reported Medications Ferrous Sulfate (Ferosul) 325 Mg Tab, 1 TAB PO BID 08/20/23 Atorvastatin Calcium (ATORVASTATIN CALCIUM) 10 Mg Tab, 1 TAB PO DAILY 08/20/23 Losartan Potassium (Losartan Potassium) 50 Mg Tab, 1 TAB PO DAILY 08/20/23 Metoprolol Succinate (Metoprolol Succinate Er) 25 Mg Tab, 0.5 TAB PO DAILY 08/20/23 Metformin Hydrochloride (Metformin Hcl) 850 Mg Tab, 1 TAB PO BID 08/20/23 Information Source: Emergency Med Personnel Mode of Arrival: EMS Severity: Moderate Timing: Hours Duration: Since onset Past Medical History PAST MEDICAL HISTORY: Cancer (colon ), DM, HTN Past Medical History (Other): Cerebral palsy, deaf, legally blind Surgical History: Denies all surgeries OFFLINE EDITOR History: Denies all OFFLINE EDITOR Hx Family History Family History: Reviewed,noncontributory to illness Social History Smoker: Non-Smoker Alcohol: Denies ETOH Use Drugs: Denies Drug Use Lives In: Assisted Care Unable to Obtain due to: Other (Patient is non verbal, deaf, blind and HX of CP ) Physical Exam General Appearance: Moderate Distress HEENT: Normal ENT Inspection, Pharynx Normal, TMs Normal Neck: Full Range of Motion, Non-Tender, Normal, Normal Inspection Respiratory: Chest Non-Tender, Lungs Clear, No Accessory Muscle Use, Normal Breath Sounds Cardiovascular: No Edema, No JVD, No Murmur, No Gallop, Normal Peripheral Pulses, Regular Rate/Rhythm Breast Exam: Deferred Gastrointestinal: Diffuse, No Organomegaly, No Pulsatile Mass, Normal Bowel Sounds, Soft, Tenderness Genitalia: Deferred Pelvic: Deferred Rectal: Deferred Extremities: No calf tenderness, Normal capillary refill, No pedal edema Musculoskeletal : Apperance: Normal Neurologic: medical nurse II-XII nml as Tested, Motor Weakness, No Sensory Deficits, Other (Altered mental status) Cerebellar Function: Unable to Test Reflexes: Normal Skin: Dry, Normal Color, Warm Lymphatic: No Adenopathy Was a procedure done? Was a procedure done?: No Differential Dx Considerations may include: Hypotension, UTI, Sepsis, Dehydration, Electrolyte imbalance, Pneumonia X-Ray, Labs, Meds, VS Vital Signs Date Time Temp Pulse Resp B/P (MAP) Pulse Ox O2 Delivery O2 Flow Rate FiO2 04/06/24 14:37 126 31 124/79 (94) 95 04/06/24 13:05 Nasal Cannula* 2 28 04/06/24 12:46 97.4 126 38 119/74 (89) 93 97.4 04/06/24 10:50 98.6 136 34 109/70 (83) 97 Lab Test 04/06/24 14:01 04/06/24 11:25 Range/Units Lactic Acid Level 2.2 *H 3.2 *H 0.4-2.0 mmol/L White Blood Count 9.7 4.4-10.8 10^3/uL Red Blood Count 3.30 L 4.0-5.20 10^6/uL Hemoglobin 9.1 L 12.2-16.2 g/dL Hematocrit 28.3 L 36.0-46.0 % Mean Corpuscular Volume 85.8 80.0-100.0 fL Mean Corpuscular Hemoglobin 27.6 L 28.0-32.0 pg Mean Corpuscular Hemoglobin Concent 32.2 32.0-36.0 g/dL Red Cell Distribution Width 22.9 H 11.8-14.3 % Platelet Count 361 140-450 10^3/uL Mean Platelet Volume 7.0 6.9-10.8 fL Neutrophils (%) (Auto) 84.7 H 37.0-80.0 % Lymphocytes (%) (Auto) 7.9 L 10.0-50.0 % Monocytes (%) (Auto) 5.7 0.0-12.0 % Eosinophils (%) (Auto) 1.5 0.0-7.0 % Basophils (%) (Auto) 0.2 0.0-2.0 % Neutrophils # (Auto) 8.2 1.6-8.6 10 ^3/uL Lymphocytes # (Auto) 0.8 0.4-5.4 10 ^3/uL Monocytes # (Auto) 0.6 0-1.3 10 ^3/uL Eosinophils # (Auto) 0.1 0-0.8 10 ^3/uL Basophils # (Auto) 0 0-0.2 10 ^3/uL Nucleated Red Blood Cells 0.0 % Platelet Estimate Adequate Anisocytosis (manual) Moderate Sodium Level 139 136-145 mmol/L Potassium Level 5.0 3.5-5.1 mmol/L Chloride Level 110 H 98-107 mmol/L Carbon Dioxide Level 19 L 20-31 mmol/L Anion Gap 10 5-15 Blood Urea Nitrogen 16 9-23 mg/dL Creatinine 1.04 H 0.550-1.02 mg/dL Glomerular Filtration Rate Calc 66 >90 mL/min BUN/Creatinine Ratio 15.4 10.0-20.0 Serum Glucose 174 H 74-106 mg/dL Calcium Level 9.7 8.7-10.4 mg/dL Total Bilirubin 0.6 0.2-1.0 mg/dL Aspartate Amino Transferase (AST) 60 H 13-40 U/L Alanine Aminotransferase (ALT) 14 7-40 U/L Alkaline Phosphatase 355 H 46-116 U/L Total Protein 7.2 5.7-8.2 g/dL Albumin 3.4 3.2-4.8 g/dL Current Medications Medications (Trade) Dose Ordered Sig/Flaca Route Start Time Stop Time Status Last Admin Sodium Chloride 1,000 ml @ 1,000 mls/hr Q1H ONCE IV 04/06/24 11:15 04/06/24 12:14 DC 04/06/24 15:45 Ceftriaxone Sodium 50 ml @ 100 mls/hr ONCE ONCE IV 04/06/24 14:45 04/06/24 15:14 DC 04/06/24 15:55 IV Hep-Lock was established The patient was given a 1 L bolus of normal saline The patient was given Rocephin IV piggyback The patient's CBC shows anemia with a hemoglobin of 9.1 and hematocrit of 28.3 The chemistry panel is within normal limits. The patient's lactic acid level is elevated at 3.2 and the 2nd one is now 2.2 Normal saline was given per sepsis protocol The patient was being admitted at this time The patient was also given vancomycin for at the septic workup The chest x-ray shows: IMPRESSION: 1. Sdzcr-ro-mpmgbvwn right pleural effusion. 2. Mild pulmonary edema versus pneumonic infiltrates. 3. Prominent left subdiaphragmatic lucency likely represents gastric distention. Pneumoperitoneum could have a similar appearance but is considered much less likely. If there is clinical concern, recommend CT. We feel that this most likely is secondary to an ammonia The patient was being admitted Images Reviewed?: Images reviewed and evaluated by me Time of 1ST Reevaluation: 11:08 Reevaluation 1ST: Unchanged Patient Education/Counseling: Other (Patient is non verbal, deaf, blind hx of CP ) Family Education/Counseling: No Family Present Departure 1 Departure Time of Disposition: 16:05 Impression: Primary Impression: Pleural effusion, right Additional Impression: Right lower lobe pneumonia Qualified Codes: J18.9 - Pneumonia, unspecified organism Disposition: ADMITTED INPATIENT Admit to: Tele Condition: Fair Critical Care Note Critical Care Time?: Yes (35 min-critical care time only) Stability Stability form required: Yes Unstable for transfer: Telemetry monitoring (Telemetry monitoring required), ED Physician Assesment (Clinical assesment) Heart Score Heart Score: Heart Score Response (Comments) Value History N/A 0 EKG N/A 0 Age N/A 0 Risk Factors N/A 0 Troponin N/A 0 Total 0 I personally scribed for WILMAN,LEOLA B MD ([email or web address]) on 04/06/24 at 11:14. Electronically submitted by Kathryn Luis ([facility]). LEOLA STOVALL MD Apr 06, 2024 11:14
[2024-04-06 11:52] LABS: Basophils # (auto) 0 10 ^3/uL (0-0.2); Basophils % (auto) 0.2 % (0.0-2.0); Eosinophils # (auto) 0.1 10 ^3/uL (0-0.8); Eosinophils % (auto) 1.5 % (0.0-7.0); Hematocrit 28.3 % (36.0-46.0); Hemoglobin 9.1 g/dL (12.2-16.2); Lymphocytes # (auto) 0.8 10 ^3/uL (0.4-5.4); Lymphocytes % (auto) 7.9 % (10.0-50.0); Mean Corpuscular Hemoglobin 27.6 pg (28.0-32.0); Mean Corpuscular Hgb Conc. 32.2 g/dL (32.0-36.0); Mean Corpuscular Volume 85.8 fL (80.0-100.0); Monocytes # (auto) 0.6 10 ^3/uL (0-1.3); Monocytes % (auto) 5.7 % (0.0-12.0); Neutrophils # (auto) 8.2 10 ^3/uL (1.6-8.6); Neutrophils % (auto) 84.7 % (37.0-80.0); Platelet Count (auto) 361 10^3/uL (140-450); White Blood Cell 9.7 10^3/uL (4.4-10.8)
[2024-04-06 12:02] LABS: Red Cell Distribution Width 22.9 % (11.8-14.3)
[2024-04-06 12:08] LABS: Alanine Aminotransferase 14 U/L (7-40); Albumin 3.4 g/dL (3.2-4.8); Anion Gap 10 (5-15); BUN/Creatinine Ratio 15.4 (10.0-20.0); Blood Urea Nitrogen 16 mg/dL (9-23); Calcium 9.7 mg/dL (8.7-10.4); Sodium 139 mmol/L (136-145)
[2024-04-06 12:09] LABS: Bilirubin, Total 0.6 mg/dL (0.2-1.0); Total Protein 7.2 g/dL (5.7-8.2)
[2024-04-06 12:10] LABS: Alkaline Phosphatase 355 U/L (46-116); Aspartate Aminotransferase 60 U/L (13-40); Carbon Dioxide 19 mmol/L (20-31); Chloride 110 mmol/L (98-107); Glucose 174 mg/dL (74-106)
[2024-04-06 12:44] LABS: Lactic Acid w/Reflex 3.2 mmol/L (0.4-2.0)
[2024-04-06 12:46] LABS: Anisocytosis Moderate; Platelet Estimate Adequate
--- NOTE | 2024-04-06 13:04 | DVH ---
CHEST RADIOGRAPH Indication: aloc Technique: Single frontal view of the chest was obtained COMPARISON: XY CHEST XRAY 1 VIEW on DOS: 10/20/23 FINDINGS: Lines and Tubes: None Lungs: There is hypoinflation with diffuse hazy mixed interstitial/ alveolar opacities. Pleura: Small to moderate right pleural effusion. No pneumothorax. Cardiomediastinal contours: Heart is similar in size from prior. Prominent subdiaphragmatic lucency o n the left side. Bones: Unremarkable IMPRESSION: 1. Zycte-ed-pxlbnabj right pleural effusion. 2. Mild pulmonary edema versus pneumonic infiltrates. 3. Prominent left subdiaphragmatic lucency likely represents gastric distention. Pneumoperitoneum cou ld have a similar appearance but is considered much less likely. If there is clinical concern, recomm end CT.
[2024-04-06] MEDS: SODIUM CHLORIDE 0.9% 1,000 ML IV ONE ×2 (15:45→17:25)
[2024-04-06] MEDS: cefTRIAXone 1GM/50ML D5W 50 ML IV ONE (15:55)
[2024-04-06] MEDS: VANCOMYCIN 1GM/250ML KIT 250 ML IV ONE (16:32)
[2024-04-06] MEDS ORDERED: MORPHINE SULFATE INJ 2 MG/ml SYRG IV PRN (19:00)
[2024-04-06] MEDS ORDERED: ONDANSETRON HCL 4 MG/2 ML VIAL IV PRN (19:00)
[2024-04-06] MEDS ORDERED: NITROGLYCERIN 0.4 MG SL TAB SL PRN (19:00)
[2024-04-06] MEDS: SODIUM CHLORIDE 0.9% 500 ML IV ONE (20:09)
[2024-04-06 22:00] VITALS: PULSE 98; RESP 20; O2SAT 96
[2024-04-06] MEDS: InsuLIN REG 1unit/0.01ml Soln (100units/ml) SC SCH (22:00)
[2024-04-06] MEDS: ACCU-CHEK COMFORT CURVE STRIP VI SCH (22:28)
[2024-04-07] MEDS: MIDODRINE HCL 10 MG TAB PO ONE (00:45)
--- NOTE | 2024-04-07 05:26 | DVHHP2 ---
History of Present Illness Reason for Visit: Hypotension History of Present Illness 48-year-old female presents for evaluation of hypotension. Patient resides at a [facility] facility. Patient with a history of cerebral palsy, bed ridden, legally blind and deaf was noted to be increasingly more lethargic in 100 her blood pressure was checked at the [facility] it was reading in the 70s. Patient was given multiple boluses of IV fluids in the emergency department currently blood pressure is ranging from 90s to 110s. Past Medical History Diabetes mellitus, hypertension, cerebral palsy colon cancer Past Surgical History None Family History Noncontributory Smoke: No ALCOHOL: none Drugs: None Lives: with Family Review of Systems Review of Systems Review of systems are currently negative otherwise addressed in HPI. Allergies: Coded Allergies: No Known Drug Allergy (Verified Allergy, Unknown, 08/20/23) Medications Current Medications Medications Dose Ordered Sig/Flaca Route Start Time Stop Time Status Last Admin Dose Admin Ceftriaxone Sodium 50 ml @ 100 mls/hr DAILY@09 IV 04/07/24 09:00 Azithromycin 250 ml @ 125 mls/hr DAILY IV 04/07/24 10:00 UNV Diagnostic Test (Pha) 1 strip ACHS 04/06/24 22:00 04/06/24 22:28 1 STRIP Insulin Human Regular ACHS SC 04/06/24 22:00 Dextrose 50 ml UD PRN IV 04/06/24 19:00 Ondansetron HCl 4 mg Q4HP PRN IV 04/06/24 19:00 Enoxaparin Sodium 30 mg DAILY SC 04/07/24 10:00 Acetaminophen 650 mg Q6HP PRN PO 04/06/24 19:00 Nitroglycerin 0.4 mg Q5MINP PRN SL 04/06/24 19:00 Morphine Sulfate 2 mg Q30M PRN IV 04/06/24 19:00 Midodrine 10 mg TID@0600,1200,1800 PO 04/07/24 06:00 UNV Exam Vital Signs Vital Signs Date Time Temp Pulse Resp B/P (MAP) Pulse Ox O2 Delivery O2 Flow Rate FiO2 04/07/24 04:00 88 04/07/24 02:30 23 99/57 (71) 99 04/06/24 22:00 Nasal Cannula* 2 28 04/06/24 12:46 97.4 97.4 Exam Gen: 48-year-old female in mild distress Skin: Warm, dry, normal color and texture, no rash. HEENT: Normocephalic atraumatic, mucous membranes moist and pink. Neck: Cervical and supraclavicular nodes normal without enlargement, trachea is midline, thyroid gland is normal without masses. Pulmonary: Clear to auscultation and percussion bilaterally. Cardiac: Regular rate and rhythm. No murmur Abdomen: Soft, nontender, nondistended, bowel sounds present all 4 quadrants, no guarding, no rigidity, no organomegaly. Extremities: No cyanosis, clubbing, no edema Neuro: Lethargic, blind and deaf Labs/Xrays ORDERING PHYSICIAN: LEOLA STOVALL MD PROCEDURE(s): CXRP - CHEST PORTABLE REASON: aloc ORDER NUMBER(s): [id number], ACCESSION NUMBER(s): [id number] CHEST RADIOGRAPH Indication: aloc Technique: Single frontal view of the chest was obtained COMPARISON: XY CHEST XRAY 1 VIEW on DOS: 10/20/23 FINDINGS: Lines and Tubes: None Lungs: There is hypoinflation with diffuse hazy mixed interstitial/ alveolar opacities. Pleura: Small to moderate right pleural effusion. No pneumothorax. Cardiomediastinal contours: Heart is similar in size from prior. Prominent subdiaphragmatic lucency on the left side. Bones: Unremarkable IMPRESSION: 1. Vnozf-ta-sftjkmyl right pleural effusion. 2. Mild pulmonary edema versus pneumonic infiltrates. 3. Prominent left subdiaphragmatic lucency likely represents gastric distention. Pneumoperitoneum could have a similar appearance but is considered much less likely. If there is clinical concern, recommend CT. Labs Test 04/06/24 22:22 04/06/24 14:01 04/06/24 11:25 Range/Units POC Glucose 95 70-106 mg/dl Lactic Acid Level 2.2 *H 0.4-2.0 mmol/L White Blood Count 9.7 4.4-10.8 10^3/uL Red Blood Count 3.30 L 4.0-5.20 10^6/uL Hemoglobin 9.1 L 12.2-16.2 g/dL Hematocrit 28.3 L 36.0-46.0 % Mean Corpuscular Volume 85.8 80.0-100.0 fL Mean Corpuscular Hemoglobin 27.6 L 28.0-32.0 pg Mean Corpuscular Hemoglobin Concent 32.2 32.0-36.0 g/dL Red Cell Distribution Width 22.9 H 11.8-14.3 % Platelet Count 361 140-450 10^3/uL Mean Platelet Volume 7.0 6.9-10.8 fL Neutrophils (%) (Auto) 84.7 H 37.0-80.0 % Lymphocytes (%) (Auto) 7.9 L 10.0-50.0 % Monocytes (%) (Auto) 5.7 0.0-12.0 % Eosinophils (%) (Auto) 1.5 0.0-7.0 % Basophils (%) (Auto) 0.2 0.0-2.0 % Neutrophils # (Auto) 8.2 1.6-8.6 10 ^3/uL Lymphocytes # (Auto) 0.8 0.4-5.4 10 ^3/uL Monocytes # (Auto) 0.6 0-1.3 10 ^3/uL Eosinophils # (Auto) 0.1 0-0.8 10 ^3/uL Basophils # (Auto) 0 0-0.2 10 ^3/uL Nucleated Red Blood Cells 0.0 % Platelet Estimate Adequate Anisocytosis (manual) Moderate Sodium Level 139 136-145 mmol/L Potassium Level 5.0 3.5-5.1 mmol/L Chloride Level 110 H 98-107 mmol/L Carbon Dioxide Level 19 L 20-31 mmol/L Anion Gap 10 5-15 Blood Urea Nitrogen 16 9-23 mg/dL Creatinine 1.04 H 0.550-1.02 mg/dL Glomerular Filtration Rate Calc 66 >90 mL/min BUN/Creatinine Ratio 15.4 10.0-20.0 Serum Glucose 174 H 74-106 mg/dL Calcium Level 9.7 8.7-10.4 mg/dL Total Bilirubin 0.6 0.2-1.0 mg/dL Aspartate Amino Transferase (AST) 60 H 13-40 U/L Alanine Aminotransferase (ALT) 14 7-40 U/L Alkaline Phosphatase 355 H 46-116 U/L Total Protein 7.2 5.7-8.2 g/dL Albumin 3.4 3.2-4.8 g/dL Assessment/Plan Assessment/Plan Assessment Sepsis Metabolic encephalopathy Community-acquired pneumonia Diabetes mellitus Acute kidney injury Possible UTI Plan Admit the patient to telemetry to the hospitalist Rocephin/azithromycin Blood cultures pending Resume home medications Continue treatment per orders Plan discussed with: Patient My Orders Orders - KENDRA CRUZ AGACNP Procedure Category Date Status Time Ceftriaxone 1gm/50ml PHA 04/07/24 In Process D5w (Rocephin) 09:00 Azithromycin 500mg/ PHA 04/07/24 Pending 250ml (Zithromax 50 10:00 Glucose Blood PHA 04/06/24 In Process (Accu-Chek Comfort 22:00 Insulin R (Human) PHA 04/06/24 In Process (Insulin R) 22:00 Dextrose 50% Syringe PHA 04/06/24 In Process 19:00 Admit ADMIT 04/06/24 Transmitted 18:56 Ondansetron Hcl PHA 04/06/24 In Process (Zofran) 19:00 Complete Blood Count LAB 04/07/24 Logged 04:00 Comprehensive LAB 04/07/24 Logged Metabolic Panel 04:00 Condition: Fair TAJ 04/06/24 In Process 18:56 Enoxaparin Sodium PHA 04/07/24 In Process (Lovenox) 10:00 Acetaminophen Tablet PHA 04/06/24 In Process (Tylenol Tablet) 19:00 Bedrest With Bathroom TAJ 04/06/24 In Process Privileg 18:56 Nitroglycerin PHA 04/06/24 In Process Sublingual (Ntrostat 19:00 Morphine Sulfate PHA 04/06/24 In Process Injection 19:00 Stat Ekg For Chest TAJ 04/06/24 In Process Pain 18:56 Notify Of Changes TAJ 04/06/24 In Process From Base 18:56 Round Kiln Drawer For TAJ 04/06/24 In Process 24 Hours 18:56 Emergency Dysrhythmia TAJ 04/06/24 In Process Protocol 18:56 Rhythm Strips Once TAJ 04/06/24 In Process Every Shift 18:56 Oxygen By Nasal RT 04/06/24 Transmitted Cannula 18:56 B-Type Natriuretic LAB 04/07/24 Logged Peptide 00:07 Cardiac DIET 04/07/24 Transmitted Diet-2gna,Lofat,Lochol Breakfast Midodrine Tablet PHA 04/07/24 Logged (Proamatine Tablet) 06:00 Urinalysis LAB 04/07/24 Logged 05:21 Date of Service: Apr 06, 2024 Billing Provider: KENDRA CRUZ Common Visit Codes: [id number] INP/OBS CARE (HIGH) KENDRA CRUZ Apr 07, 2024 05:26
[2024-04-07 05:47] LABS: Basophils # (auto) 0 10 ^3/uL (0-0.2); Basophils % (auto) 0.5 % (0.0-2.0); Eosinophils # (auto) 0.3 10 ^3/uL (0-0.8); Eosinophils % (auto) 3.1 % (0.0-7.0); Hematocrit 27.7 % (36.0-46.0); Hemoglobin 8.9 g/dL (12.2-16.2); Lymphocytes # (auto) 0.9 10 ^3/uL (0.4-5.4); Lymphocytes % (auto) 9.2 % (10.0-50.0); Mean Corpuscular Hemoglobin 27.9 pg (28.0-32.0); Mean Corpuscular Hgb Conc. 32.3 g/dL (32.0-36.0); Mean Corpuscular Volume 86.2 fL (80.0-100.0); Monocytes # (auto) 0.7 10 ^3/uL (0-1.3); Monocytes % (auto) 7.1 % (0.0-12.0); Neutrophils # (auto) 8.2 10 ^3/uL (1.6-8.6); Neutrophils % (auto) 80.1 % (37.0-80.0); Nucleated Red Blood Cells % 0.1 %; Platelet Count (auto) 360 10^3/uL (140-450); Red Blood Cells 3.21 10^6/uL (4.0-5.20); White Blood Cell 10.2 10^3/uL (4.4-10.8)
[2024-04-07 05:49] LABS: Red Cell Distribution Width 22.7 % (11.8-14.3)
[2024-04-07 06:16] LABS: Alanine Aminotransferase 11 U/L (7-40); Anion Gap 10 (5-15); Bilirubin, Total 0.5 mg/dL (0.2-1.0); Blood Urea Nitrogen 12 mg/dL (9-23); Calcium 9.3 mg/dL (8.7-10.4); Glucose 90 mg/dL (74-106); Potassium 4.9 mmol/L (3.5-5.1); Sodium 140 mmol/L (136-145); Total Protein 6.3 g/dL (5.7-8.2)
[2024-04-07 06:24] LABS: Alkaline Phosphatase 321 U/L (46-116); Aspartate Aminotransferase 60 U/L (13-40); Carbon Dioxide 19 mmol/L (20-31); Chloride 111 mmol/L (98-107)
[2024-04-07 06:25] LABS: Albumin 2.9 g/dL (3.2-4.8)
[2024-04-07] MEDS: MIDODRINE HCL 10 MG TAB PO SCH (06:55)
[2024-04-07] MEDS: cefTRIAXone 1GM/50ML D5W 50 ML IV SCH (09:22)
[2024-04-07] MEDS: ENOXAPARIN SOD 30 MG/0.3 ML SYRINGE SC SCH (10:00)
[2024-04-07] MEDS: AZITHROMYCIN 500MG/ 250ML 250 ML IV SCH (10:07)
--- NOTE | 2024-04-07 14:03 | DVHPN2 ---
Subjective Since According to her father who is at the bedside she was hypotensive at the long term where she resides and she is confused but today she is doing better She is on hospice in a board and long term for metastatic colon cancer Changes from previous H/P or p: Changes Objective Vitals Vital Signs Date Time Temp Pulse Resp B/P (MAP) Pulse Ox O2 Delivery O2 Flow Rate FiO2 04/07/24 13:00 105 21 111/75 (87) 100 04/07/24 07:28 Nasal Cannula* 2 28 04/07/24 07:28 97.9 97.9 Intake/Output Intake and Output 04/07/24 07:00 Intake Total 1950 ml Balance 1950 ml Intake IV Total 1950 ml General Appearance: Alert, Other (Disoriented to place and time) Lungs: Other (Bilateral rhonchi) Cardiovascular: Regular rate, Normal S1, Normal S2, No murmurs Abdomen: Normal bowel sounds, Soft, No tenderness Extremities: No edema Medications Current Medications Medications Dose Ordered Sig/Flaca Route Start Time Stop Time Status Last Admin Dose Admin Ceftriaxone Sodium 50 ml @ 100 mls/hr DAILY@09 IV 04/07/24 09:00 04/07/24 09:22 100 MLS/HR Azithromycin 250 ml @ 125 mls/hr DAILY IV 04/07/24 10:00 04/07/24 10:07 125 MLS/HR Diagnostic Test (Pha) 1 strip ACHS 04/06/24 22:00 04/07/24 11:30 1 STRIP Insulin Human Regular ACHS SC 04/06/24 22:00 Dextrose 50 ml UD PRN IV 04/06/24 19:00 Ondansetron HCl 4 mg Q4HP PRN IV 04/06/24 19:00 Enoxaparin Sodium 30 mg DAILY SC 04/07/24 10:00 04/07/24 10:00 30 MG Acetaminophen 650 mg Q6HP PRN PO 04/06/24 19:00 Nitroglycerin 0.4 mg Q5MINP PRN SL 04/06/24 19:00 Morphine Sulfate 2 mg Q30M PRN IV 04/06/24 19:00 Midodrine 10 mg TID@0600,1200,1800 PO 04/07/24 06:00 04/07/24 12:22 10 MG Laboratory Results Laboratory Tests 04/07/24 05:29 Chemistry Test 04/07/24 05:29 Albumin 2.9 g/dL (3.2-4.8) L Calcium Level 9.3 mg/dL (8.7-10.4) Total Protein 6.3 g/dL (5.7-8.2) Cardiac Markers Test 04/07/24 05:29 B-Type Natriuretic Peptide 74.30 pg/mL (0-100) LFT Test 04/07/24 05:29 Alanine Aminotransferase (ALT) 11 U/L (7-40) Alkaline Phosphatase 321 U/L (46-116) H Aspartate Amino Transferase (AST) 60 U/L (13-40) H Total Bilirubin 0.5 mg/dL (0.2-1.0) Microbiology Microbiology Date/Time Source Procedure Growth Status 04/06/24 11:25 Blood Blood Culture - Preliminary NO GROWTH AFTER 24 HOURS OF INCUBATION. Resulted Assessment/Plan Assessment/Plan Sepsis Metabolic encephalopathy Rule out UTI Type 2 diabetic Colon cancer Possible underlying pneumonia Acute kidney injury hemodynamically mediated Recent diagnosis of colon cancer metastatic to the liver according to her father Lactic acidosis Chronic anemia Plan Broad-spectrum antibiotics Get a UA and urine culture Blood culture Discussed with the father at the bedside DNR Advance directives discussed for 15 minutes Plan discussed with: Patient, Other My Orders Orders - VEENA CLEMENTS MD Procedure Category Date Status Time Urine Bacterial DOMENICO 04/07/24 Verified Culture 13:59 Date of Service: Apr 07, 2024 Billing Provider: VEENA CLEMENTS MD Common Visit Codes: [id number] INP/OBS CARE(HIGH) (code) Secondary Visit Codes: [id number] CARE PLAN 30 MINUTES VEENA CLEMENTS MD Apr 07, 2024 14:03
[2024-04-07 16:22] LABS: Urine Bacteria FEW /hpf (None Seen); Urine Blood Negative /uL (Negative); Urine Budding Yeast OCCASIONAL /hpf (None Seen); Urine Clarity Turbid (Clear); Urine Color Yellow (Yellow); Urine Mucus FEW (None Seen); Urine Protein, UAD TRACE (Negative); Urine Specific Gravity 1.015 (1.001-1.035); Urine Squamous Epithelial Cell None Seen /hpf (<5); Urine Urobilinogen Normal (Negative); Urine WBC 2 /HPF (0-5)
[2024-04-07 16:43] VITALS: PULSE 111; RESP 18; O2SAT 97
[2024-04-07 17:00] VITALS: BP 115/71; PULSE 111; RESP 19; TEMP 98.3; O2SAT 97
[2024-04-07 17:06] VITALS: BP 115/71; PULSE 111; RESP 18; TEMP 98.3; O2SAT 97
[2024-04-07 20:00] VITALS: PULSE 115
[2024-04-07 21:00] VITALS: BP 110/69; PULSE 105; RESP 21; TEMP 97.5; O2SAT 97
[2024-04-08] VITALS (8 sets, daily range): BP systolic 101–129; BP diastolic 59–79; PULSE 107–133; RESP 14–21; TEMP 97.7–99.1; O2SAT 95–99
[2024-04-08 07:10] LABS: Alanine Aminotransferase 16 U/L (7-40); Anion Gap 8 (5-15); BUN/Creatinine Ratio 12.5 (10.0-20.0); Blood Urea Nitrogen 13 mg/dL (9-23); Calcium 9.6 mg/dL (8.7-10.4); Glucose 86 mg/dL (74-106); Sodium 138 mmol/L (136-145)
[2024-04-08 07:11] LABS: Bilirubin, Total 0.3 mg/dL (0.2-1.0); Total Protein 6.5 g/dL (5.7-8.2)
[2024-04-08 07:17] LABS: Carbon Dioxide 19 mmol/L (20-31); Chloride 111 mmol/L (98-107); Potassium 5.2 mmol/L (3.5-5.1)
[2024-04-08 07:18] LABS: Alkaline Phosphatase 352 U/L (46-116); Aspartate Aminotransferase 119 U/L (13-40); Magnesium 1.2 mg/dL (1.6-2.6)
[2024-04-08 07:31] LABS: Basophils # (auto) 0 10 ^3/uL (0-0.2); Basophils % (auto) 0.3 % (0.0-2.0); Eosinophils # (auto) 0.3 10 ^3/uL (0-0.8); Eosinophils % (auto) 3.3 % (0.0-7.0); Hemoglobin 9.1 g/dL (12.2-16.2); Lymphocytes % (auto) 10.2 % (10.0-50.0); Mean Corpuscular Hemoglobin 27.4 pg (28.0-32.0); Mean Corpuscular Hgb Conc. 31.3 g/dL (32.0-36.0); Mean Corpuscular Volume 87.4 fL (80.0-100.0); Monocytes # (auto) 0.8 10 ^3/uL (0-1.3); Monocytes % (auto) 8.2 % (0.0-12.0); Nucleated Red Blood Cells % 0.1 %; Platelet Count (auto) 379 10^3/uL (140-450); Red Blood Cells 3.32 10^6/uL (4.0-5.20); Red Cell Distribution Width 22.7 % (11.8-14.3); White Blood Cell 10.2 10^3/uL (4.4-10.8)
--- NOTE | 2024-04-08 10:09 | DVHPN2 ---
Subjective Looks uncomfortable Heart rate is in the 130s Changes from previous H/P or p: Changes Objective Vitals Vital Signs Date Time Temp Pulse Resp B/P (MAP) Pulse Ox O2 Delivery O2 Flow Rate FiO2 04/08/24 05:00 98.0 113 21 125/79 (94) 95 98.0 04/07/24 16:43 Nasal Cannula* 1 24 Intake/Output Intake and Output 04/08/24 07:00 Intake Total 600 ml Balance 600 ml Intake Oral 300 ml IV Total 300 ml # Voids 1 General Appearance: Alert, Other (Disoriented to place and time) Lungs: Other (Bilateral rhonchi) Cardiovascular: Regular rate, Normal S1, Normal S2, No murmurs Abdomen: Normal bowel sounds, Soft, No tenderness Extremities: No edema Medications Current Medications Medications Dose Ordered Sig/Flaca Route Start Time Stop Time Status Last Admin Dose Admin Ceftriaxone Sodium 50 ml @ 100 mls/hr DAILY@09 IV 04/07/24 09:00 04/08/24 09:29 100 MLS/HR Azithromycin 250 ml @ 125 mls/hr DAILY IV 04/07/24 10:00 04/07/24 10:07 125 MLS/HR Diagnostic Test (Pha) 1 strip ACHS 04/06/24 22:00 04/08/24 06:07 1 STRIP Insulin Human Regular ACHS SC 04/06/24 22:00 04/07/24 22:08 2 UNITS Dextrose 50 ml UD PRN IV 04/06/24 19:00 Ondansetron HCl 4 mg Q4HP PRN IV 04/06/24 19:00 Enoxaparin Sodium 30 mg DAILY SC 04/07/24 10:00 04/08/24 09:29 30 MG Acetaminophen 650 mg Q6HP PRN PO 04/06/24 19:00 Nitroglycerin 0.4 mg Q5MINP PRN SL 04/06/24 19:00 Morphine Sulfate 2 mg Q30M PRN IV 04/06/24 19:00 Midodrine 10 mg TID@0600,1200,1800 PO 04/07/24 06:00 04/07/24 18:11 10 MG Magnesium Sulfate/ Dextrose 100 ml @ 100 mls/hr Q1HR IV 04/08/24 11:00 04/08/24 12:59 UNV Laboratory Results Laboratory Tests 04/08/24 05:06 Chemistry Test 04/08/24 05:06 Albumin 3.0 g/dL (3.2-4.8) L Calcium Level 9.6 mg/dL (8.7-10.4) Magnesium Level 1.2 mg/dL (1.6-2.6) L Total Protein 6.5 g/dL (5.7-8.2) LFT Test 04/08/24 05:06 Alanine Aminotransferase (ALT) 16 U/L (7-40) Alkaline Phosphatase 352 U/L (46-116) H Aspartate Amino Transferase (AST) 119 U/L (13-40) H Total Bilirubin 0.3 mg/dL (0.2-1.0) Urinalysis Test 04/07/24 15:48 Urine Color Yellow (Yellow) Urine Clarity Turbid (Clear) H Urine pH 5.0 (5.0-9.0) Urine Specific [place] 1.015 (1.001-1.035) Urine Protein Trace (Negative) H Urine Ketones Negative (Negative) Urine Blood Negative /uL (Negative) Urine Nitrite Negative (Negative) Urine Bilirubin Negative (Negative) Urine Urobilinogen Normal mg/dL (Negative) Urine Leukocyte Esterase Negative /uL (Negative) Urine RBC <1 /hpf (0 - 4) Urine Microscopic WBC 2 /HPF (0-5) Urine Squamous Epithelial Cells None seen /hpf (<5) Urine Bacteria Few /hpf (None Seen) H Urine Granular Casts Few /lpf (0) Urine Mucus Few (None Seen) Urine Yeast (Budding) Occasional /hpf (None Urine Glucose Normal mg/dL (Normal) Microbiology Microbiology Date/Time Source Procedure Growth Status 04/07/24 15:48 Urine - Catheterized Urine Culture - Preliminary Resulted 04/06/24 11:25 Blood Blood Culture - Preliminary NO GROWTH AFTER 24 HOURS OF INCUBATION. Resulted Assessment/Plan Assessment/Plan Sepsis Metabolic encephalopathy Rule out UTI Type 2 diabetic Colon cancer Possible underlying pneumonia Acute kidney injury hemodynamically mediated Recent diagnosis of colon cancer metastatic to the liver according to her father Lactic acidosis Chronic anemia Hypomagnesemia Plan 04/07/2024: Broad-spectrum antibiotics Get a UA and urine culture Blood culture Discussed with the father at the bedside DNR Advance directives discussed for 15 minutes 04/08/2024: Sepsis with tachycardia: Give a bolus of IV fluids 500 mL normal saline Hypomagnesemia: Replace IV magnesium Sepsis: Continue IV antibiotics Dehydration: Start IV fluids Hyperkalemia: IV fluids Pneumonia: Rocephin and Zithromax Plan discussed with: Patient, Other My Orders Orders - VEENA CLEMENTS MD Procedure Category Date Status Time Urine Bacterial DOMENICO 04/07/24 In Process Culture 13:59 Code Status CODE 04/07/24 Transmitted 14:01 Mrsa Screen DOMENICO 04/07/24 In Process 16:57 Sodium Chloride 0.9% PHA 04/08/24 Logged 10:15 Magnesium Sulfate PHA 04/08/24 Logged 1gm/100ml 11:00 Date of Service: Apr 08, 2024 Billing Provider: VEENA CLEMENTS MD Common Visit Codes: [id number] INP/OBS CARE(HIGH) VEENA CLEMENTS MD Apr 08, 2024 10:09
[2024-04-08] MEDS: SODIUM CHLORIDE 0.9% 500 ML IV ONE (10:15)
[2024-04-08] MEDS: ACETAMINOPHEN 325 MG TAB PO PRN (11:00)
[2024-04-08] MEDS: MAGNESIUM SULFATE 1GM/100ML 100 ML IV SCH (12:00)
[2024-04-08] MEDS: SODIUM CHLORIDE 0.9% 1,000 ML IV SCH (12:40)
--- NOTE | 2024-04-08 14:00 | DVH ---
EXAM: XY CHEST PORTABLE HISTORY: pneumonia COMPARISON: Chest x-ray dated 04/06/2024. TECHNIQUE: Portable upright AP view of the chest was performed. FINDINGS: There is opacification of the inferior 2/3 of the right hemithorax, increased versus prior chest x-ra y. There are diffuse interstitial opacities bilaterally. No pneumothorax. The right heart border is o bscured. IMPRESSION: 1. Increased right pleural effusion and consolidation, now with opacification of the inferior 2/3 of the right hemithorax. 2. Diffuse interstitial opacities suggestive of pulmonary edema.
--- NOTE | 2024-04-08 16:27 | DVHINCON2 ---
LEWIS LORENZO [facility] 04/08/24 1627: Date Seen: Apr 08, 2024 Referring Physician MD Luis Carlos Reason for Consultation Tachycardia History of Present Illness This is a 48-year-old female patient who presents to the emergency room for chief complaint of hypotension. At the time of assessment, the patient's father is at bedside and is able to provide an accurate history given that the patient has cerebral palsy and is nonverbal. Per the patient's father, the patient lives at [facility]. Staff members noticed that the patient's blood pressure was low and she was brought to the emergency room for further evaluation. Cardiology has been consulted at this time for tachycardia. A twelve lead electrocardiogram was obtained at time that patient was noted to go into tachycardia and reveals sinus tachycardia. Significant past medical history includes congenital heart disease, dyslipidemia, type 2 diabetes mellitus, cerebral palsy and is nonverbal, and colon cancer with metastasis. The patient's father reports that she is not following up with a patient navigator in the outpatient setting. He reports a recent diagnosis of colon cancer with metastasis and states that the patient was given approximately 3-6 months to live. Past Medical History Past medical history reviewed. No other significant than mentioned above. Past Surgical History Denies all previous surgeries Family History: Patient reports no known family medical history. Family History Family history reviewed. Social History Denies the use of tobacco, alcohol or illicit drugs. Allergies: Coded Allergies: No Known Drug Allergy (Verified Allergy, Unknown, 08/20/23) Home Meds Active Scripts Magnesium Oxide (MAGNESIUM OXIDE) 400 Mg Tab, 1 TAB PO DAILY, #10 TAB Prov:VEENA CLEMENTS MD 08/23/23 Gentamicin Sulfate (Gentamicin Sulfate) 0.3 % Chani, 1 DROP EACHEYE QID for 5 Days, #5 ML Prov:VEENA CLEMENTS MD 08/23/23 Ciprofloxacin Hcl (Cipro) 250 Mg Tab, 250 MG PO BID for 5 Days, #10 TAB Prov:VEENA CLEMENTS MD 08/23/23 Reported Medications Ferrous Sulfate (Ferosul) 325 Mg Tab, 1 TAB PO BID 08/20/23 Atorvastatin Calcium (ATORVASTATIN CALCIUM) 10 Mg Tab, 1 TAB PO DAILY 08/20/23 Losartan Potassium (Losartan Potassium) 50 Mg Tab, 1 TAB PO DAILY 08/20/23 Metoprolol Succinate (Metoprolol Succinate Er) 25 Mg Tab, 0.5 TAB PO DAILY 08/20/23 Metformin Hydrochloride (Metformin Hcl) 850 Mg Tab, 1 TAB PO BID 08/20/23 Home Meds Home medications reviewed. Current Medications Current Medications Medications (Trade) Dose Ordered Sig/Flaca Route PRN Reason Start Time Stop Time Status Last Admin Magnesium Sulfate/ Dextrose 100 ml @ 100 mls/hr Q1HR IV 04/08/24 11:00 04/08/24 12:59 DC 04/08/24 12:00 Sodium Chloride 1,000 ml @ 60 mls/hr [id number] IV 04/08/24 10:15 04/08/24 12:40 Mupirocin (Bactroban 2% Ointment) 1 applic BID EACHNOSTRI 04/08/24 22:00 04/13/24 21:59 Review of Systems Constitutional: Generalized weakness Ears, Nose, & Throat: No symptom reported Eyes: No symptom reported Neurological: No symptoms reported Pulmonary/Respiratory: No symptoms reported Cardiovascular: No symptom reported Gastrointestinal: No symptom reported Genitourinary: No symptom reported Musculoskeletal: No symptom reported Skin: No symptom reported Psychiatric: No symptom reported Endocrine: No symptom reported Hematologic/Lymphatic: No symptom reported Vital Signs Vital Signs Date Time Temp Pulse Resp B/P (MAP) Pulse Ox O2 Delivery O2 Flow Rate FiO2 04/08/24 13:00 99.1 133 20 121/60 (80) 98 99.1 04/08/24 08:00 Nasal Cannula* 2 28 Physical Exam General Appearance: Calm, relaxed Pulmonary/Respiratory: Clear, bilateral breaths sounds. Cardiovascular/Chest: Regular rate and rhythm. Peripheral Pulses: 2+ Radial (R). 2+ Radial (L). 2+ Pedal (R). 2+ Pedal (L) Abdominal Exam: Normal bowel sounds. Abdomen appears distended Ankle Exam: Negative ankle edema Lower extremities: Negative lower extremity edema Neuro/Mental Status: Unable to assess Thoughts/Psych: Deferred Appearance: No acute distress. Skin Exam: Normal inspection. Normal color. Warm and dry. Labs/Diagnostic Data Labs Test 04/08/24 11:32 04/08/24 05:06 04/07/24 15:48 04/07/24 05:29 Range/Units POC Glucose 169 H 70-106 mg/dl White Blood Count 10.2 4.4-10.8 10^3/uL Red Blood Count 3.32 L 4.0-5.20 10^6/uL Hemoglobin 9.1 L 12.2-16.2 g/dL Hematocrit 29.0 L 36.0-46.0 % Mean Corpuscular Volume 87.4 80.0-100.0 fL Mean Corpuscular Hemoglobin 27.4 L 28.0-32.0 pg Mean Corpuscular Hemoglobin Concent 31.3 L 32.0-36.0 g/dL Red Cell Distribution Width 22.7 H 11.8-14.3 % Platelet Count 379 140-450 10^3/uL Mean Platelet Volume 6.9 6.9-10.8 fL Neutrophils (%) (Auto) 78.0 37.0-80.0 % Lymphocytes (%) (Auto) 10.2 10.0-50.0 % Monocytes (%) (Auto) 8.2 0.0-12.0 % Eosinophils (%) (Auto) 3.3 0.0-7.0 % Basophils (%) (Auto) 0.3 0.0-2.0 % Neutrophils # (Auto) 8.0 1.6-8.6 10 ^3/uL Lymphocytes # (Auto) 1.0 0.4-5.4 10 ^3/uL Monocytes # (Auto) 0.8 0-1.3 10 ^3/uL Eosinophils # (Auto) 0.3 0-0.8 10 ^3/uL Basophils # (Auto) 0 0-0.2 10 ^3/uL Nucleated Red Blood Cells 0.1 % Sodium Level 138 136-145 mmol/L Potassium Level 5.2 H 3.5-5.1 mmol/L Chloride Level 111 H 98-107 mmol/L Carbon Dioxide Level 19 L 20-31 mmol/L Anion Gap 8 5-15 Blood Urea Nitrogen 13 9-23 mg/dL Creatinine 1.04 H 0.550-1.02 mg/dL Glomerular Filtration Rate Calc 66 >90 mL/min BUN/Creatinine Ratio 12.5 10.0-20.0 Serum Glucose 86 74-106 mg/dL Hemoglobin A1c 5.8 H <5.7 % A1C Calcium Level 9.6 8.7-10.4 mg/dL Magnesium Level 1.2 L 1.6-2.6 mg/dL Total Bilirubin 0.3 0.2-1.0 mg/dL Aspartate Amino Transferase (AST) 119 H 13-40 U/L Alanine Aminotransferase (ALT) 16 7-40 U/L Alkaline Phosphatase 352 H 46-116 U/L Total Protein 6.5 5.7-8.2 g/dL Albumin 3.0 L 3.2-4.8 g/dL Thyroid Stimulating Hormone (TSH) 3.18 0.55-4.78 uIU/mL Urine Color Yellow Yellow Urine Clarity Turbid H Clear Urine pH 5.0 5.0-9.0 Urine Specific [place] 1.015 1.001-1.035 Urine Protein Trace H Negative Urine Ketones Negative Negative Urine Blood Negative Negative /uL Urine Nitrite Negative Negative Urine Bilirubin Negative Negative Urine Urobilinogen Normal Negative mg/dL Urine Leukocyte Esterase Negative Negative /uL Urine RBC <1 0 - 4 /hpf Urine Microscopic WBC 2 0-5 /HPF Urine Squamous Epithelial Cells None seen <5 /hpf Urine Bacteria Few H None Seen /hpf Urine Granular Casts Few 0 /lpf Urine Mucus Few None Seen Urine Yeast (Budding) Occasional None Seen /hpf Urine Glucose Normal Normal mg/dL B-Type Natriuretic Peptide 74.30 0-100 pg/mL Test 04/06/24 14:01 04/06/24 11:25 Range/Units Lactic Acid Level 2.2 *H 0.4-2.0 mmol/L Platelet Estimate Adequate Anisocytosis (manual) Moderate Microbiology Date/Time Source Procedure Growth Status 04/07/24 17:10 Nose MRSA Screen - Final Methicillin Resistant S.aureus Complete 04/07/24 15:48 Urine - Catheterized Urine Culture - Preliminary Resulted 04/06/24 11:25 Blood Blood Culture - Preliminary NO GROWTH AFTER 48 HOURS OF INCUBATION. Resulted Assessment Sinus tachycardia Rule out pulmonary embolism Congenital heart disease ?Pneumonia Right pleural effusion Severe hypomagnesemia Chronic anemia Metastatic colon cancer History of cerebral palsy Plan/Recommendation We will continue following plan/recommendations (Dr. Bhatia): Case discussed and reviewed with . Sinus tachycardia likely secondary to infection. TSH and D-dimer ordered to assess for other possible causes. We will obtain a transthoracic echocardiogram to evaluate cardiac function. Continue with cardiac surveillance. Thank you for allowing us to care for this patient. Please call with any questions or concerns. Critical care time spent: 42 minutes This medical document was created using an electronic medical record system with voice recognition software and computerized dictation system. Although this document has been carefully reviewed, there might still be some phonetic and typographical errors. Occasional wrong-word or ``sound-alike substitutions may have occurred due to the inherent limitations of voice recognition software. These areas are purely typographical due to imperfections of the software pr ograms and do not reflect any compromise in the patient's medical care. Please read the chart carefully and recognize, using context, where these substitutions have occurred. Plan discussed with: Patient NYHA Physical activity limitations: NA Date of Service: Apr 08, 2024 Billing Provider: LEWIS LORENZO Cardiology Common Codes: [id number] INP/OBS CARE (High) Cardiology Consultation Codes: [id number] CONSULT <45MIN KYLE BHATIA MD 04/08/241953: Family History: Patient reports no known family medical history. Allergies: Coded Allergies: No Known Drug Allergy (Verified Allergy, Unknown, 08/20/23) Home Meds Active Scripts Magnesium Oxide (MAGNESIUM OXIDE) 400 Mg Tab, 1 TAB PO DAILY, #10 TAB Prov:VEENA CLEMENTS MD 08/23/23 Gentamicin Sulfate (Gentamicin Sulfate) 0.3 % Chani, 1 DROP EACHEYE QID for 5 Days, #5 ML Prov:VEENA CLEMENTS MD 08/23/23 Ciprofloxacin Hcl (Cipro) 250 Mg Tab, 250 MG PO BID for 5 Days, #10 TAB Prov:VEENA CLEMENTS MD 08/23/23 Reported Medications Ferrous Sulfate (Ferosul) 325 Mg Tab, 1 TAB PO BID 08/20/23 Atorvastatin Calcium (ATORVASTATIN CALCIUM) 10 Mg Tab, 1 TAB PO DAILY 08/20/23 Losartan Potassium (Losartan Potassium) 50 Mg Tab, 1 TAB PO DAILY 08/20/23 Metoprolol Succinate (Metoprolol Succinate Er) 25 Mg Tab, 0.5 TAB PO DAILY 08/20/23 Metformin Hydrochloride (Metformin Hcl) 850 Mg Tab, 1 TAB PO BID 08/20/23 Plan/Recommendation d dimer is quite high, very high vte risk given non ambulatory, will start anticoag now for possible PE cta may not be accurate given pt cannot respond to commands and suboptimal imaging consider goals of care for pt very poor prognosis d/w RN Plan discussed with: Other (rn) LEWIS LORENZO Apr 08, 2024 16:27 KYLE BHATIA MD Apr 08, 2024 19:54
[2024-04-08] MEDS: MUPIROCIN 2% OINT 15gm or 22gm FOR MRSA NARES EACHNOSTRI SCH (22:00)
[2024-04-08] MEDS: ENOXAPARIN SOD 60 MG/0.6 ML SYRINGE SC SCH (22:28)
[2024-04-09] VITALS (8 sets, daily range): BP systolic 78–132; BP diastolic 36–74; PULSE 18–137; RESP 14–24; TEMP 98.1–100.9; O2SAT 90–98
[2024-04-09 09:23] LABS: Basophils # (auto) 0.1 10 ^3/uL (0-0.2); Basophils % (auto) 0.4 % (0.0-2.0); Eosinophils # (auto) 0 10 ^3/uL (0-0.8); Eosinophils % (auto) 0.1 % (0.0-7.0); Hematocrit 26.9 % (36.0-46.0); Hemoglobin 8.5 g/dL (12.2-16.2); Lymphocytes # (auto) 0.9 10 ^3/uL (0.4-5.4); Mean Corpuscular Hemoglobin 27.3 pg (28.0-32.0); Mean Corpuscular Hgb Conc. 31.5 g/dL (32.0-36.0); Mean Corpuscular Volume 86.6 fL (80.0-100.0); Monocytes # (auto) 1.3 10 ^3/uL (0-1.3); Monocytes % (auto) 8.3 % (0.0-12.0); Neutrophils # (auto) 13.1 10 ^3/uL (1.6-8.6); Neutrophils % (auto) 85.2 % (37.0-80.0); Platelet Count (auto) 359 10^3/uL (140-450); Red Blood Cells 3.11 10^6/uL (4.0-5.20); Red Cell Distribution Width 22.9 % (11.8-14.3); White Blood Cell 15.4 10^3/uL (4.4-10.8)
[2024-04-09 09:43] LABS: BUN/Creatinine Ratio 12.1 (10.0-20.0)
[2024-04-09 10:58] LABS: Blood Urea Nitrogen 15 mg/dL (9-23); Calcium 9.1 mg/dL (8.7-10.4); Carbon Dioxide 17 mmol/L (20-31); Glucose 127 mg/dL (74-106); Magnesium 1.8 mg/dL (1.6-2.6)
[2024-04-09 11:41] LABS: Sodium 137 mmol/L (136-145)
[2024-04-09 11:42] LABS: Anion Gap 8 (5-15); Chloride 112 mmol/L (98-107); Potassium 5.2 mmol/L (3.5-5.1)
[2024-04-09 12:22] LABS: Cholesterol 123 mg/dL (< 200); LDL Cholesterol 77 mg/dL (< 100)
[2024-04-09 12:26] LABS: HDL Cholesterol 19 mg/dL (40-59); Triglycerides 169 mg/dL (< 150)
--- NOTE | 2024-04-09 13:23 | ECG ---
[facility] Test Date: 2024-04-08 Test Time: 14:58:58 Pat Name: MARIA L OVIEDO Department: Respiratoy Room: [address] [place] [address] Gender: F Health Information Clerk: JERED : 1975 Requested By: VEENA CLEMENTS Order Number: [id number] Reading MD: Brooks [place] Measurements Intervals [place] Rate: 118 P: 36 [place]: 142 QRS: 189 QRSD: 64 T: 11 QT: 326 QTc: 457 Interpretive Statements Sinus tachycardia Probable left atrial enlargement Low voltage, precordial leads Consider right ventricular hypertrophy Electronically Signed On 04-10-2024 9:34:26 PST by Brooks Wells Please click the below link to view image of tracing.
--- NOTE | 2024-04-09 13:33 | DVHINCON2 ---
Date of service: Apr 09, [address] Aldridge Reason for Consultation Acute hypoxic respiratory failure and pneumonia History of Present Illness A 48-year-old woman with PMHx of diabetes mellitus, hypertension, cerebral palsy, and colon cancer who presented to ED on 04/07/24 for evaluation of hypotension. Patient resides [facility]. She is bedridden, legally blind and deaf. Patient was noted to be increasingly more lethargic at the [facility] with blood pressure reading in the 70s and was brought to the ED. She was given multiple boluses of IV fluids in the emergency department with blood pressure ranging from 90s to 110s. Patient was admitted for further care. Pulmonary consultation is requested for evaluation and management of acute hypoxic respiratory failure and pneumonia. Review of Systems: 14-point review of systems negative unless otherwise noted above. Past Medical History: Diabetes mellitus, hypertension, cerebral palsy, colon cancer, bedridden status, legally blind and deaf. Past Surgical History: None Medications: Reviewed. Allergies: No known drug allergies. Family History: No family history of premature CAD. No family history of lung disorders. Social History: Nonsmoker. No alcohol or illicit drug use. Family History: Patient reports no known family medical history. Allergies: Coded Allergies: No Known Drug Allergy (Verified Allergy, Unknown, 08/20/23) Home Meds Active Scripts Magnesium Oxide (MAGNESIUM OXIDE) 400 Mg Tab, 1 TAB PO DAILY, #10 TAB Prov:VEENA ALDRIDGE MD 08/23/23 Gentamicin Sulfate (Gentamicin Sulfate) 0.3 % Chani, 1 DROP EACHEYE QID for 5 Days, #5 ML Prov:VEENA ALDRIDGE MD 08/23/23 Ciprofloxacin Hcl (Cipro) 250 Mg Tab, 250 MG PO BID for 5 Days, #10 TAB Prov:VEENA ALDRIDGE MD 08/23/23 Reported Medications Ferrous Sulfate (Ferosul) 325 Mg Tab, 1 TAB PO BID 08/20/23 Atorvastatin Calcium (ATORVASTATIN CALCIUM) 10 Mg Tab, 1 TAB PO DAILY 08/20/23 Losartan Potassium (Losartan Potassium) 50 Mg Tab, 1 TAB PO DAILY 08/20/23 Metoprolol Succinate (Metoprolol Succinate Er) 25 Mg Tab, 0.5 TAB PO DAILY 08/20/23 Metformin Hydrochloride (Metformin Hcl) 850 Mg Tab, 1 TAB PO BID 6/24/24 Current Medications Current Medications Medications (Trade) Dose Ordered Sig/Flaca Route PRN Reason Start Time Stop Time Status Last Admin Mupirocin (Bactroban 2% Ointment) 1 applic BID EACHNOSTRI 04/08/24 22:00 04/13/24 21:59 04/09/24 10:00 Enoxaparin Sodium (Lovenox) 50 mg Q12HR SC 04/08/24 22:00 04/09/24 10:00 Vital Signs Vital Signs Date Time Temp Pulse Resp B/P (MAP) Pulse Ox O2 Delivery O2 Flow Rate FiO2 04/09/24 09:00 98.1 100 18 101/49 (66) 93 98.1 04/08/24 20:00 Nasal Cannula* 3 32 Physical Exam Gen.: Patient lying in bed in no apparent distress. On supplemental oxygen. Head: Normocephalic, atraumatic. Eyes: Legally blind. Ears: Deafness. Normal anatomy. Neck/trachea: Trachea midline, supple. Nose: Normal external anatomy. Mouth: Moist mucous membranes. Chest: Decreased air entry bilaterally. No wheezing or rhonchi. Cardiovascular: Positive S1, positive S2. Regular rate and rhythm. Abdomen: Positive bowel sounds in all 4 quadrants. Soft, non-tender, non- distended. : Deferred. Rectal: Deferred. Skin: Warm, dry. Intact. Extremities: 2+ radial pulses bilaterally. No lower extremity edema. Neuro: Awake, alert, oriented x3. No gross motor or sensory deficits. Cranial nerves II through XII intact. Gait not assessed. Labs/Diagnostic Data Labs Test 04/09/24 09:00 04/09/24 05:56 04/08/24 17:21 04/08/24 05:06 Range/Units White Blood Count 15.4 #H 4.4-10.8 10^3/uL Red Blood Count 3.11 L 4.0-5.20 10^6/uL Hemoglobin 8.5 L 12.2-16.2 g/dL Hematocrit 26.9 L 36.0-46.0 % Mean Corpuscular Volume 86.6 80.0-100.0 fL Mean Corpuscular Hemoglobin 27.3 L 28.0-32.0 pg Mean Corpuscular Hemoglobin Concent 31.5 L 32.0-36.0 g/dL Red Cell Distribution Width 22.9 H 11.8-14.3 % Platelet Count 359 140-450 10^3/uL Mean Platelet Volume 6.4 L 6.9-10.8 fL Neutrophils (%) (Auto) 85.2 H 37.0-80.0 % Lymphocytes (%) (Auto) 6.0 L 10.0-50.0 % Monocytes (%) (Auto) 8.3 0.0-12.0 % Eosinophils (%) (Auto) 0.1 0.0-7.0 % Basophils (%) (Auto) 0.4 0.0-2.0 % Neutrophils # (Auto) 13.1 H 1.6-8.6 10 ^3/uL Lymphocytes # (Auto) 0.9 0.4-5.4 10 ^3/uL Monocytes # (Auto) 1.3 0-1.3 10 ^3/uL Eosinophils # (Auto) 0 0-0.8 10 ^3/uL Basophils # (Auto) 0.1 0-0.2 10 ^3/uL Nucleated Red Blood Cells 0.0 % Sodium Level 137 136-145 mmol/L Potassium Level 5.2 H 3.5-5.1 mmol/L Chloride Level 112 H 98-107 mmol/L Carbon Dioxide Level 17 L 20-31 mmol/L Anion Gap 8 5-15 Blood Urea Nitrogen 15 9-23 mg/dL Creatinine 1.24 H 0.550-1.02 mg/dL Glomerular Filtration Rate Calc 54 >90 mL/min BUN/Creatinine Ratio 12.1 10.0-20.0 Serum Glucose 127 H 74-106 mg/dL Calcium Level 9.1 8.7-10.4 mg/dL Magnesium Level 1.8 1.6-2.6 mg/dL POC Glucose 139 H 70-106 mg/dl D-Dimer, Quantitative 3.04 H 0.0-0.49 mg/L FEU Hemoglobin A1c 5.8 H <5.7 % A1C Total Bilirubin 0.3 0.2-1.0 mg/dL Aspartate Amino Transferase (AST) 119 H 13-40 U/L Alanine Aminotransferase (ALT) 16 7-40 U/L Alkaline Phosphatase 352 H 46-116 U/L Total Protein 6.5 5.7-8.2 g/dL Albumin 3.0 L 3.2-4.8 g/dL Triglycerides Level 169 H < 150 mg/dL Cholesterol Level 123 < 200 mg/dL LDL Cholesterol 77 < 100 mg/dL HDL Cholesterol 19 L 40-59 mg/dL Thyroid Stimulating Hormone (TSH) 3.18 0.55-4.78 uIU/mL Test 04/07/24 15:48 04/07/24 05:29 04/06/24 14:01 04/06/24 11:25 Range/Units Urine Color Yellow Yellow Urine Clarity Turbid H Clear Urine pH 5.0 5.0-9.0 Urine Specific [place] 1.015 1.001-1.035 Urine Protein Trace H Negative Urine Ketones Negative Negative Urine Blood Negative Negative /uL Urine Nitrite Negative Negative Urine Bilirubin Negative Negative Urine Urobilinogen Normal Negative mg/dL Urine Leukocyte Esterase Negative Negative /uL Urine RBC <1 0 - 4 /hpf Urine Microscopic WBC 2 0-5 /HPF Urine Squamous Epithelial Cells None seen <5 /hpf Urine Bacteria Few H None Seen /hpf Urine Granular Casts Few 0 /lpf Urine Mucus Few None Seen Urine Yeast (Budding) Occasional None Seen /hpf Urine Glucose Normal Normal mg/dL B-Type Natriuretic Peptide 74.30 0-100 pg/mL Lactic Acid Level 2.2 *H 0.4-2.0 mmol/L Platelet Estimate Adequate Anisocytosis (manual) Moderate Microbiology Date/Time Source Procedure Growth Status 04/07/24 17:10 Nose MRSA Screen - Final Methicillin Resistant S.aureus Complete 04/07/24 15:48 Urine - Catheterized Urine Culture - Preliminary Resulted 04/06/24 11:25 Blood Blood Culture - Preliminary NO GROWTH AFTER 72 HOURS OF INCUBATION. Resulted Assessment Impression: Acute hypoxic respiratory failure Dependence on supplemental oxygen Pneumonia, likely gram negative Aspiration pneumonia Down syndrome Atelectasis Legal blindness Deafness Plan: Supplemental oxygen Titrate to keep O2 sats above 92%. Head of bed elevation Aspiration precautions Continue antibiotics Incentive spirometry Send sputum cultures if able to produce Start bronchodilators, mucolytics and chest percussive therapy. Midodrine PO TID Accu-Cheks, ISS. Monitor renal function. Monitor electrolytes. Supplement as necessary. Monitor ins and outs. DVT prophylaxis- Lovenox. Prognosis: Poor given patient's multiple co-morbidities. Rest of plan per hospitalist and other consultants. Thank you, Dr. Aldridge, for allowing me to participate in this patient's care. Further recommendations will depend on the patient's clinical course. Please do not hesitate to contact me if you have any questions or concerns. This medical document was created using an electronic medical record system with [employer] computerized dictation system. Although these documentations are being carefully reviewed, there may still be some phonetic and typographical changes. The errors are purely typographical, due to imperfection on the software program, and do not reflect any compromise in the patient's medical care. Plan discussed with: Patient, Other (RN/Dr. Aldridge) MALACHI WAITE MD Apr 09, 2024 13:33
--- NOTE | 2024-04-09 13:51 | DVHPN2 ---
Subjective More comfortable today Less tachycardic heart rate about 110 sinus tachycardia Chest x-ray showed right lower lobe pneumonia and right pleural effusion Changes from previous H/P or p: Changes Objective Vitals Vital Signs Date Time Temp Pulse Resp B/P (MAP) Pulse Ox O2 Delivery O2 Flow Rate FiO2 04/09/24 09:00 98.1 100 18 101/49 (66) 93 98.1 04/08/24 20:00 Nasal Cannula* 3 32 Intake/Output Intake and Output 04/09/24 07:00 Intake Total 910 ml Balance 910 ml Intake Oral 660 ml IV Total 250 ml # Voids 6 # Bowel Movements 4 General Appearance: Alert, Other (Disoriented to place and time) Lungs: Other (Bilateral rhonchi) Cardiovascular: Regular rate, Normal S1, Normal S2, No murmurs Abdomen: Normal bowel sounds, Soft, No tenderness Extremities: No edema Medications Current Medications Medications Dose Ordered Sig/Flaca Route Start Time Stop Time Status Last Admin Dose Admin Ceftriaxone Sodium 50 ml @ 100 mls/hr DAILY@09 IV 04/07/24 09:00 04/09/24 09:00 100 MLS/HR Azithromycin 250 ml @ 125 mls/hr DAILY IV 04/07/24 10:00 04/09/24 13:12 125 MLS/HR Diagnostic Test (Pha) 1 strip ACHS 04/06/24 22:00 04/09/24 11:35 1 STRIP Insulin Human Regular ACHS SC 04/06/24 22:00 04/09/24 06:10 2 UNITS Dextrose 50 ml UD PRN IV 04/06/24 19:00 Ondansetron HCl 4 mg Q4HP PRN IV 04/06/24 19:00 Acetaminophen 650 mg Q6HP PRN PO 04/06/24 19:00 04/08/24 11:00 650 MG Nitroglycerin 0.4 mg Q5MINP PRN SL 04/06/24 19:00 Morphine Sulfate 2 mg Q30M PRN IV 04/06/24 19:00 Midodrine 10 mg TID@0600,1200,1800 PO 04/07/24 06:00 04/09/24 11:35 10 MG Sodium Chloride 1,000 ml @ 60 mls/hr [id number] IV 04/08/24 10:15 04/09/24 01:00 60 MLS/HR Mupirocin 1 applic BID EACHNOSTRI 04/08/24 22:00 04/13/24 21:59 04/09/24 10:00 1 APPLIC Enoxaparin Sodium 50 mg Q12HR SC 04/08/24 22:00 04/09/24 10:00 50 MG Laboratory Results Laboratory Tests 04/09/24 09:00 Chemistry Test 04/09/24 09:00 Calcium Level 9.1 mg/dL (8.7-10.4) Magnesium Level 1.8 mg/dL (1.6-2.6) Coagulation Test 04/08/24 17:21 D-Dimer, Quantitative 3.04 mg/L FEU (0.0-0.49) H Urinalysis Test 04/07/24 15:48 Urine Color Yellow (Yellow) Urine Clarity Turbid (Clear) H Urine pH 5.0 (5.0-9.0) Urine Specific [place] 1.015 (1.001-1.035) Urine Protein Trace (Negative) H Urine Ketones Negative (Negative) Urine Blood Negative /uL (Negative) Urine Nitrite Negative (Negative) Urine Bilirubin Negative (Negative) Urine Urobilinogen Normal mg/dL (Negative) Urine Leukocyte Esterase Negative /uL (Negative) Urine RBC <1 /hpf (0 - 4) Urine Microscopic WBC 2 /HPF (0-5) Urine Squamous Epithelial Cells None seen /hpf (<5) Urine Bacteria Few /hpf (None Seen) H Urine Granular Casts Few /lpf (0) Urine Mucus Few (None Seen) Urine Yeast (Budding) Occasional /hpf (None Urine Glucose Normal mg/dL (Normal) Microbiology Microbiology Date/Time Source Procedure Growth Status 04/07/24 17:10 Nose MRSA Screen - Final Methicillin Resistant S.aureus Complete 04/07/24 15:48 Urine - Catheterized Urine Culture - Preliminary Resulted 04/06/24 11:25 Blood Blood Culture - Preliminary NO GROWTH AFTER 72 HOURS OF INCUBATION. Resulted Assessment/Plan Assessment/Plan Sepsis Metabolic encephalopathy Rule out UTI Type 2 diabetic Colon cancer Possible underlying pneumonia Acute kidney injury hemodynamically mediated Recent diagnosis of colon cancer metastatic to the liver according to her father Lactic acidosis Chronic anemia Hypomagnesemia Plan 04/07/2024: Broad-spectrum antibiotics Get a UA and urine culture Blood culture Discussed with the father at the bedside DNR Advance directives discussed for 15 minutes 04/08/2024: Sepsis with tachycardia: Give a bolus of IV fluids 500 mL normal saline Hypomagnesemia: Replace IV magnesium Sepsis: Continue IV antibiotics Dehydration: Start IV fluids Hyperkalemia: IV fluids Pneumonia: Rocephin and Zithromax 04/09/2024: Sinus tachycardia: Continue IV fluids and IV antibiotics UTI Pneumonia: Continue Zithromax and Rocephin Right pleural effusion: Consult pulmonology for thoracentesis MRSA in the nostrils: Bactroban ointment Hypomagnesemia: Replace IV Colon cancer Type 2 diabetes Cerebral palsy Plan discussed with: Patient, Other My Orders Orders - VENEA CLEMENTS MD Procedure Category Date Status Time Apply Barrier Cream TAJ 04/08/24 In Process 12:00 * Dietary Consult CONS 04/08/24 Transmitted 14:08 *Consult CONS 04/09/24 Transmitted / 10:03 Date of Service: Apr 09, 2024 Billing Provider: VEENA CLEMENTS MD Common Visit Codes: [id number] INP/OBS CARE(HIGH) VEENA CLEMENTS MD Apr 09, 2024 13:51
[2024-04-09] MEDS: MAGNESIUM SULFATE 1GM/100ML 100 ML IV SCH (14:00)
--- NOTE | 2024-04-09 15:25 | DVHSR ---
APPROVED REPORT EXAM: Two-dimensional and M-mode echocardiogram with Doppler and color Doppler. Blood Pressure: 100/61 mmHg INDICATION Evaluate cardiac function RISK FACTORS Height: 4'11", Weight: 115 DIMENSIONS LVDd3.6 (3.8-5.7cm)LA (2D)2.0 (1.9-4.0cm)Aortic Root2.6 (2.0-3.7cm) LVDs2.2 (2.5-4.0cm)LA (MM) (1.9-4.0cm)Aortic Cusp Exc1.5 (1.5-2.0cm) EF (%) 68.0 (55-70%)Rt. Atrium (1.9-4.0cm)Asc. Aorta cm IVSd0.8 (0.7-1.1cm)RV (D) (1.8-2.4cm) PWd0.4 (0.7-1.1cm) Mitral Valve MitralMitral Stenosis E/A ratio0.02D MVAcm2 Aortic Valve Aortic ValveAortic Stenosis LVOT Diameter1.5 (1.8-2.4cm)Doppler AVAcm2 Other Information Quality : Technically LimitedRhythm : Technically limited study due to body habitus and pt lying on right side. Conclusion lvef 65% normal rv function cannot rule out enlargement? no severe valve abnormalities noted
--- NOTE | 2024-04-09 19:55 | DVHPN2 ---
Consult Progress Note Subjective Other Systems: Patient remains in sinus tachycardia Objective vital signs Vital Sign Date Time Temp Pulse Resp B/P (MAP) Pulse Ox O2 Delivery O2 Flow Rate FiO2 04/09/24 16:39 98.9 129 14 109/59 (76) 94 98.9 04/09/24 08:00 Nasal Cannula* 3 32 Total Intake and Output 04/08/24 04/08/24 04/09/24 15:00 23:00 07:00 Intake Total 250 ml 360 ml 300 ml Balance 250 ml 360 ml 300 ml medications Current Medications Medications Dose Ordered Sig/Flaca Route Start Time Stop Time Status Last Admin Dose Admin Ceftriaxone Sodium 50 ml @ 100 mls/hr DAILY@09 IV 04/07/24 09:00 04/09/24 09:00 100 MLS/HR Azithromycin 250 ml @ 125 mls/hr DAILY IV 04/07/24 10:00 04/09/24 13:12 125 MLS/HR Diagnostic Test (Pha) 1 strip ACHS 04/06/24 22:00 04/09/24 19:00 1 STRIP Insulin Human Regular ACHS SC 04/06/24 22:00 04/09/24 19:00 4 UNITS Dextrose 50 ml UD PRN IV 04/06/24 19:00 Ondansetron HCl 4 mg Q4HP PRN IV 04/06/24 19:00 Acetaminophen 650 mg Q6HP PRN PO 04/06/24 19:00 04/08/24 11:00 650 MG Nitroglycerin 0.4 mg Q5MINP PRN SL 04/06/24 19:00 Morphine Sulfate 2 mg Q30M PRN IV 04/06/24 19:00 Midodrine 10 mg TID@0600,1200,1800 PO 04/07/24 06:00 04/09/24 18:00 10 MG Sodium Chloride 1,000 ml @ 60 mls/hr [id number] IV 04/08/24 10:15 04/09/24 01:00 60 MLS/HR Mupirocin 1 applic BID EACHNOSTRI 04/08/24 22:00 04/13/24 21:59 04/09/24 10:00 1 APPLIC Enoxaparin Sodium 50 mg Q12HR SC 04/08/24 22:00 04/09/24 10:00 50 MG Examination: GENERAL:Abnormal, LUNGS:Normal, CVS:Normal (Sinus tachycardia) laboratory and microbiology Laboratory Tests 04/09/24 09:00 Test 04/09/24 09:00 Range/Units Serum Glucose 127 H 74-106 mg/dL Problem List/Assessment/Plan Problem List/Assessment/Plan Sinus tachycardia Rule out pulmonary embolism Congenital heart disease Pneumonia Right pleural effusion Severe hypomagnesemia, replaced Chronic anemia Metastatic colon cancer History of cerebral palsy Plan/Recommendation (Dr. Finley): Case discussed and reviewed with . Transthoracic echocardiogram reveals EF 65%. Sinus tachycardia likely secondary to infection and/or possible pulmonary embolism. A D-dimer was drawn and is noted to be significantly elevated. Patient was initiated on anticoagulation therapy. No imaging ordered given that patient is not able to follow commands and imaging may be suboptimal. Further workup for pulmonary embolism per primary care team discretion. There is no further inpatient cardiac workup indicated at this time. Thank you for allowing us to care for this patient. Please call with any questions or concerns. This medical document was created using an electronic medical record system with voice recognition software and computerized dictation system. Although this document has been carefully reviewed, there might still be some phonetic and typographical errors. Occasional wrong-word or ``sound-alike substitutions may have occurred due to the inherent limitations of voice recognition software. These areas are purely typographical due to imperfections of the software programs and do not reflect any compromise in the patient's medical care. Please read the chart carefully and recognize, using context, where these substitutions have occurred. Plan discussed with: Other Dietary Evaluation Review Comments: 1. Encourage continued good oral intakes of >/=75% of meals 2. Continue texture-modified diet as medically appropriate Expected Outcomes/Goals: Weight maintenance, maintain skin integrity Date of Service: Apr 09, 2024 Billing Provider: LEWIS LORENZO Common Visit Codes: [id number] INP/OBS CARE(HIGH) LEWIS LORENZO Apr 09, 2024 19:55
[2024-04-10] VITALS (96 sets, daily range): BP systolic 64–142; BP diastolic 36–114; PULSE 80–118; RESP 11–35; TEMP 95.9–99.7; O2SAT 94–99
[2024-04-10] MEDS: ALBUMIN 5% 250 ML IV ONE (00:22)
[2024-04-10] MEDS: SODIUM CHLORIDE 0.9% 500 ML IV ONE (01:59)
[2024-04-10] MEDS: NOREPINEPHRINE 8 MG/250ML KIT 250 ML IV ONE (03:51)
[2024-04-10] MEDS: PHENYLEPHRINE IV 250 ML IV SCH (04:00)
--- NOTE | 2024-04-10 10:40 | DVHPN2 ---
Subjective The patient became hypotensive last night so she had to be transferred to the ICU and started on justin drip She is on 4 L nasal cannula now Chest x-ray shows right lower lobe pneumonia with either effusion or lung collapse Changes from previous H/P or p: Changes Objective Vitals Vital Signs Date Time Temp Pulse Resp B/P (MAP) Pulse Ox O2 Delivery O2 Flow Rate FiO2 04/10/24 09:35 107/67 04/10/24 06:15 96.6 86 20 205.9 04/10/24 05:20 96 Nasal Cannula* 3 32 Intake/Output Intake and Output 04/10/24 07:00 Intake Total 647.50 ml Balance 647.50 ml Intake Oral 250 ml IV Total 397.50 ml # Voids 4 # Bowel Movements 2 General Appearance: Alert, Other (Disoriented to place and time) Lungs: Other (Bilateral rhonchi) Cardiovascular: Regular rate, Normal S1, Normal S2, No murmurs Abdomen: Normal bowel sounds, Soft, No tenderness Extremities: No edema Medications Current Medications Medications Dose Ordered Sig/Flaca Route Start Time Stop Time Status Last Admin Dose Admin Ceftriaxone Sodium 50 ml @ 100 mls/hr DAILY@09 IV 04/07/24 09:00 04/10/24 09:19 100 MLS/HR Azithromycin 250 ml @ 125 mls/hr DAILY IV 04/07/24 10:00 04/10/24 10:07 125 MLS/HR Diagnostic Test (Pha) 1 strip ACHS 04/06/24 22:00 04/10/24 06:31 1 STRIP Insulin Human Regular ACHS SC 04/06/24 22:00 04/09/24 22:29 4 UNITS Dextrose 50 ml UD PRN IV 04/06/24 19:00 Ondansetron HCl 4 mg Q4HP PRN IV 04/06/24 19:00 Acetaminophen 650 mg Q6HP PRN PO 04/06/24 19:00 04/09/24 22:28 650 MG Nitroglycerin 0.4 mg Q5MINP PRN SL 04/06/24 19:00 Morphine Sulfate 2 mg Q30M PRN IV 04/06/24 19:00 Midodrine 10 mg TID@0600,1200,1800 PO 04/07/24 06:00 04/09/24 18:00 10 MG Sodium Chloride 1,000 ml @ 60 mls/hr [id number] IV 04/08/24 10:15 04/10/24 01:25 60 MLS/HR Mupirocin 1 applic BID EACHNOSTRI 04/08/24 22:00 04/13/24 21:59 04/10/24 09:19 1 APPLIC Enoxaparin Sodium 50 mg Q12HR SC 04/08/24 22:00 04/10/24 09:21 50 MG Phenylephrine HCl 250 ml @ 30 mls/hr Q8H20M IV 04/10/24 03:30 04/10/24 09:35 67.5 MLS/HR Laboratory Results Laboratory Tests 04/09/24 09:00 Urinalysis Test 04/07/24 15:48 Urine Color Yellow (Yellow) Urine Clarity Turbid (Clear) H Urine pH 5.0 (5.0-9.0) Urine Specific [place] 1.015 (1.001-1.035) Urine Protein Trace (Negative) H Urine Ketones Negative (Negative) Urine Blood Negative /uL (Negative) Urine Nitrite Negative (Negative) Urine Bilirubin Negative (Negative) Urine Urobilinogen Normal mg/dL (Negative) Urine Leukocyte Esterase Negative /uL (Negative) Urine RBC <1 /hpf (0 - 4) Urine Microscopic WBC 2 /HPF (0-5) Urine Squamous Epithelial Cells None seen /hpf (<5) Urine Bacteria Few /hpf (None Seen) H Urine Granular Casts Few /lpf (0) Urine Mucus Few (None Seen) Urine Yeast (Budding) Occasional /hpf (None Urine Glucose Normal mg/dL (Normal) Microbiology Microbiology Date/Time Source Procedure Growth Status 04/07/24 17:10 Nose MRSA Screen - Final Methicillin Resistant S.aureus Complete 04/07/24 15:48 Urine - Catheterized Urine Culture - Final Complete 04/06/24 11:25 Blood Blood Culture - Preliminary NO GROWTH AFTER 72 HOURS OF INCUBATION. Resulted Assessment/Plan Assessment/Plan Sepsis Metabolic encephalopathy Rule out UTI Type 2 diabetic Colon cancer Possible underlying pneumonia Acute kidney injury hemodynamically mediated Recent diagnosis of colon cancer metastatic to the liver according to her father Lactic acidosis Chronic anemia Hypomagnesemia Plan 04/07/2024: Broad-spectrum antibiotics Get a UA and urine culture Blood culture Discussed with the father at the bedside DNR Advance directives discussed for 15 minutes 04/08/2024: Sepsis with tachycardia: Give a bolus of IV fluids 500 mL normal saline Hypomagnesemia: Replace IV magnesium Sepsis: Continue IV antibiotics Dehydration: Start IV fluids Hyperkalemia: IV fluids Pneumonia: Rocephin and Zithromax 04/09/2024: Sinus tachycardia: Continue IV fluids and IV antibiotics UTI Pneumonia: Continue Zithromax and Rocephin Right pleural effusion: Consult pulmonology for thoracentesis MRSA in the nostrils: Bactroban ointment Hypomagnesemia: Replace IV Colon cancer Type 2 diabetes Cerebral palsy 04/10/2024: Repeat chest x-ray Antibiotics to meropenem IV and Zithromax Pulmonary consultation Continue IV fluids normal saline Vasopressors as needed Hyperkalemia: Continue IV fluids JONNA due to hemodynamically mediated: Continue IV fluids Discussed with the father at the bedside DNR Pulmonary consult obtained, Dr. Martinez recommended a bronchoscopy but the father declined at this point Continue medical management Plan discussed with: Patient, Other My Orders Orders - VEENA CLEMENTS MD Procedure Category Date Status Time Chest Portable XY 04/10/24 Logged 09:11 Date of Service: Apr 10, 2024 Billing Provider: VEENA CLEMENTS MD Common Visit Codes: [id number] CARE 30-74 MIN VEENA CLEMENTS MD Apr 10, 2024 10:40
--- NOTE | 2024-04-10 12:52 | DVH ---
CHEST RADIOGRAPH Indication: pleural effusion Technique: Portable upright AP view of the chest was performed. Comparison: XY CHEST PORTABLE on DOS: 04/08/24, XY CHEST PORTABLE on DOS: 04/06/24, XY CHEST XRAY 1 VIEW on DOS: 10/20/23, XY CHEST PORTABLE on DOS: 10/17/23, XY CHEST PORTABLE on DOS: 08/20/23, XY CHEST PORT ABLE on DOS: 04/08/24 FINDINGS: There is opacification of the inferior 2/3 of the right hemithorax, increased versus prior chest x-ra y. There are diffuse interstitial opacities bilaterally. No pneumothorax. The right heart border is o bscured. IMPRESSION: 1. Increased right pleural effusion and consolidation, now with opacification of the inferior 2/3 of the right hemithorax. 2. Diffuse interstitial opacities suggestive of pulmonary edema.
[2024-04-10] MEDS: MEROPENEM 1GM IVPB 50 ML IV ONE (13:05)
[2024-04-10] MEDS: ACETYLCYSTEINE 20%(200MG/ML) SOL 4ML NEB SCH (13:25)
[2024-04-10] MEDS: ALBUTEROL SULF 2.5 MG/0.5ML(0.5%) NEB SOLN NEB SCH (13:25)
--- NOTE | 2024-04-10 21:29 | DVHPN2 ---
Progress Note - Dictate Date Seen: Apr 10, 2024 Medical Necessity Reason Pt with a Central, PICC or Fol: No Subjective Patient seen and examined at bedside. Remains on supplemental oxygen Overnight events reviewed. vital signs Vital Sign Date Time Temp Pulse Resp B/P (MAP) Pulse Ox O2 Delivery O2 Flow Rate FiO2 04/10/24 19:08 99.7 108 33 108/64 (79) 211.5 04/10/24 18:00 94 Nasal Cannula* 3 32 Total Intake and Output 04/09/24 04/09/24 04/10/24 15:00 23:00 07:00 Intake Total 300 ml 150 ml 245.50 ml Balance 300 ml 150 ml 245.50 ml medications Current Medications Medications Dose Ordered Sig/Flaca Route Start Time Stop Time Status Last Admin Dose Admin Azithromycin 250 ml @ 125 mls/hr DAILY IV 04/07/24 10:00 04/10/24 10:07 125 MLS/HR Diagnostic Test (Pha) 1 strip ACHS 04/06/24 22:00 04/10/24 17:44 1 STRIP Insulin Human Regular ACHS SC 04/06/24 22:00 04/10/24 12:16 3 UNITS Dextrose 50 ml UD PRN IV 04/06/24 19:00 Ondansetron HCl 4 mg Q4HP PRN IV 04/06/24 19:00 Acetaminophen 650 mg Q6HP PRN PO 04/06/24 19:00 04/09/24 22:28 650 MG Nitroglycerin 0.4 mg Q5MINP PRN SL 04/06/24 19:00 Morphine Sulfate 2 mg Q30M PRN IV 04/06/24 19:00 Midodrine 10 mg TID@0600,1200,1800 PO 04/07/24 06:00 04/10/24 17:44 10 MG Sodium Chloride 1,000 ml @ 60 mls/hr [id number] IV 04/08/24 10:15 04/10/24 12:30 60 MLS/HR Mupirocin 1 applic BID EACHNOSTRI 04/08/24 22:00 04/13/24 21:59 04/10/24 09:19 1 APPLIC Enoxaparin Sodium 50 mg Q12HR SC 04/08/24 22:00 04/10/24 09:21 50 MG Phenylephrine HCl 250 ml @ 30 mls/hr Q8H20M IV 04/10/24 03:30 04/10/24 13:07 67.5 MLS/HR Acetylcysteine 200 mg Q8HR NEB 04/10/24 14:00 04/13/24 13:59 04/10/24 17:56 200 MG Albuterol 2.5 mg Q4HPRN NEB 04/10/24 14:00 04/10/24 17:57 2.5 MG Meropenem 50 ml @ 17 mls/hr Q12HR IV 04/10/24 22:00 objective Gen.: Patient lying in bed in no apparent distress. On supplemental oxygen. Head: Normocephalic, atraumatic. Eyes: EOMI/PERRLA. Ears: Normal hearing. Normal anatomy. Neck/trachea: Trachea midline, supple. Nose: Normal external anatomy. Mouth: Moist mucous membranes. Chest: Decreased air entry bilaterally. No wheezing or rhonchi. Cardiovascular: Positive S1, positive S2. Regular rate and rhythm. Abdomen: Positive bowel sounds in all 4 quadrants. Soft, non-tender, non- distended. : Deferred. Rectal: Deferred. Skin: Warm, dry. Intact. Extremities: 2+ radial pulses bilaterally. No lower extremity edema. Neuro: Awake, alert, oriented x3. No gross motor or sensory deficits. Cranial nerves II through XII intact. Gait not assessed. laboratory and microbiology Laboratory Tests 04/09/24 09:00 Test 04/09/24 09:00 Range/Units Serum Glucose 127 H 74-106 mg/dL Assessment/Plan Impression: Acute hypoxic respiratory failure Dependence on supplemental oxygen Pneumonia, likely gram negative Down syndrome Atelectasis Legal blindness Deafness Events: Remains on supplemental oxygen, 3 LPM NC Taper O2 as tolerated Chest x-ray reviewed, demonstrates right middle lobe/right lower lobe collapse. Limited chest ultrasound showed findings of consolidated lung. Continue antibiotics Incentive spirometry Start Mucomyst/BD/CPT. On Curtis-Synephrine 65 mcg/min for hemodynamic support Titrate to keep MAP above 65 mmHg/SBP above 90 mmHg. Metabolic acidosis - On IV fluids with NS at 60 ml/hr. Family deferred bronchoscopy, agreed with medical management first. Monitor renal function d/t JONNA. Monitor electrolytes. Supplement as necessary. Monitor hyperkalemia Note, patient is DNR. Labs and imaging reviewed. Rest of plan as noted below. Plan: Supplemental oxygen Titrate to keep O2 sats above 92%. Head of bed elevation Aspiration precautions Continue antibiotics Incentive spirometry Send sputum cultures if able to produce Midodrine PO TID Accu-Cheks, ISS. Monitor renal function. Monitor electrolytes. Supplement as necessary. Monitor ins and outs. DVT prophylaxis- Lovenox. Patient is DNR. Prognosis: Guarded given patient's multiple co-morbidities. Condition: Critical Rest of plan per hospitalist and other consultants. A total of 35 minutes of critical care time was spent reviewing the patient record, examining the patient, making a diagnostic and therapeutic plan, discussing this plan with the medical personnel, following up on diagnostic studies and following the patient for clinical stability excluding any and all procedures. At least 50% of this time was spent in direct, [id number] contact. Thank you, Dr. Aldridge, for allowing me to participate in this patient's care. Further recommendations will depend on the patient's clinical course. Please do not hesitate to contact me if you have any questions or concerns. This medical document was created using an electronic medical record system with [employer] dictation system. Although these documentations are being carefully reviewed, there may still be some phonetic and typographical changes. The errors are purely typographical, due to imperfection on the software program, and do not reflect any compromise in the patient's medical care. Dietary Evaluation Review Comments: 1. Encourage continued good oral intakes of >/=75% of meals 2. Continue texture-modified diet as medically appropriate Expected Outcomes/Goals: Weight maintenance, maintain skin integrity Plan discussed with: Other (GRICEL Dietrich) Critical Care Time(min): 35 MALACHI WAITE MD Apr 10, 2024 21:29
[2024-04-10] MEDS: MEROPENEM 1GM IVPB 50 ML IV SCH (22:17)
[2024-04-11] VITALS (104 sets, daily range): BP systolic 88–137; BP diastolic 53–91; PULSE 94–129; RESP 10–35; TEMP 96.8–99.3; O2SAT 90–100
[2024-04-11 04:20] LABS: Basophils # (auto) 0 10 ^3/uL (0-0.2); Eosinophils # (auto) 0.1 10 ^3/uL (0-0.8); Hemoglobin 9.3 g/dL (12.2-16.2); Mean Corpuscular Volume 88.4 fL (80.0-100.0); Nucleated Red Blood Cells % 0.1 %; White Blood Cell 16.5 10^3/uL (4.4-10.8)
[2024-04-11 04:22] LABS: Basophils % (auto) 0.3 % (0.0-2.0); Eosinophils % (auto) 0.7 % (0.0-7.0); Hematocrit 30.8 % (36.0-46.0); Mean Corpuscular Hemoglobin 26.6 pg (28.0-32.0); Mean Corpuscular Hgb Conc. 30.1 g/dL (32.0-36.0); Neutrophils # (auto) 14.4 10 ^3/uL (1.6-8.6); Platelet Count (auto) 400 10^3/uL (140-450); Red Blood Cells 3.48 10^6/uL (4.0-5.20); Red Cell Distribution Width 23.7 % (11.8-14.3)
[2024-04-11 04:34] LABS: Alanine Aminotransferase 22 U/L (7-40); Anion Gap 9 (5-15); BUN/Creatinine Ratio 18.3 (10.0-20.0); Calcium 9.2 mg/dL (8.7-10.4); Magnesium 2.4 mg/dL (1.6-2.6); Sodium 137 mmol/L (136-145)
[2024-04-11 04:35] LABS: Total Protein 6.7 g/dL (5.7-8.2)
[2024-04-11 04:38] LABS: Albumin 3.1 g/dL (3.2-4.8); Alkaline Phosphatase 309 U/L (46-116); Aspartate Aminotransferase 70 U/L (13-40); Bilirubin, Total 0.2 mg/dL (0.2-1.0); Blood Urea Nitrogen 28 mg/dL (9-23); Carbon Dioxide 16 mmol/L (20-31); Chloride 112 mmol/L (98-107); Glucose 159 mg/dL (74-106)
[2024-04-11 04:40] LABS: Potassium 5.6 mmol/L (3.5-5.1)
[2024-04-11] MEDS: SODIUM ZIRCONIUM CYCL 10 GM PAK PO ONE (05:30)
--- NOTE | 2024-04-11 06:08 | DVH ---
EXAM: XR Chest, 1 View CLINICAL INDICATION: mucous plug in right lung TECHNIQUE: Frontal view of the chest. COMPARISON: XY CHEST PORTABLE on DOS: 04/10/24, XY CHEST PORTABLE on DOS: 04/08/24, XY CHEST PORTABLE on DOS: 04/06/24, XY CHEST XRAY 1 VIEW on DOS: 10/20/23, XY CHEST PORTABLE on DOS: 10/17/23 FINDINGS: LUNGS AND PLEURAL SPACES: Mild congestive heart failure. Bilateral pleural effusions, greater on t he right. No consolidation. No pneumothorax. HEART: Unremarkable. No cardiomegaly. MEDIASTINUM: Unremarkable. Normal mediastinal contour. BONES/JOINTS: Unremarkable. No acute fracture. OTHER FINDINGS: . None. . .. IMPRESSION: Mild congestive heart failure. Bilateral pleural effusions, greater on the right.
--- NOTE | 2024-04-11 08:49 | MEDREC ---
FORM[facility]LY [facility], LATER [facility] Intervention Section I FOR[facility]LY [facility], LAT[facility] Intervention: Review courses of therapy (PLEASE CONSIDER ADDING GRAM POSITIVE COVERAGE FOR PATIENT DUE TO UPTRENDING WBC, POSITIVE MRSA SCREEN, AND IMMUNOCOMPROMISED STATUS (COLON CANCER)) MAURA MARTÍNEZ Apr 11, 2024 08:49
[2024-04-11 10:36] LABS: Alanine Aminotransferase 24 U/L (7-40); Anion Gap 10 (5-15); BUN/Creatinine Ratio 15.2 (10.0-20.0); Calcium 9.1 mg/dL (8.7-10.4); Total Protein 6.5 g/dL (5.7-8.2)
[2024-04-11 10:39] LABS: Alkaline Phosphatase 341 U/L (46-116); Aspartate Aminotransferase 75 U/L (13-40); Bilirubin, Total 0.2 mg/dL (0.2-1.0); Blood Urea Nitrogen 23 mg/dL (9-23); Carbon Dioxide 14 mmol/L (20-31); Chloride 112 mmol/L (98-107); Glucose 193 mg/dL (74-106); Sodium 136 mmol/L (136-145)
--- NOTE | 2024-04-11 11:16 | DVHPN2 ---
Subjective She is off the vasopressors now She is on 3 L nasal cannula Changes from previous H/P or p: Changes Objective Vitals Vital Signs Date Time Temp Pulse Resp B/P (MAP) Pulse Ox O2 Delivery O2 Flow Rate FiO2 04/11/24 10:24 99.0 113 26 101/65 (77) 100 210.2 04/11/24 09:35 Nasal Cannula* 3 32 Intake/Output Intake and Output 04/11/24 07:00 Intake Total 2211.00 ml Output Total 325 ml Balance 1886.00 ml Intake Oral 270 ml IV Total 1941.00 ml Output Urine Total 325 ml # Bowel Movements 3 General Appearance: Alert, Other (Disoriented to place and time) Lungs: Other (Bilateral rhonchi) Cardiovascular: Regular rate, Normal S1, Normal S2, No murmurs Abdomen: Normal bowel sounds, Soft, No tenderness Extremities: No edema Medications Current Medications Medications Dose Ordered Sig/Flaca Route Start Time Stop Time Status Last Admin Dose Admin Azithromycin 250 ml @ 125 mls/hr DAILY IV 04/07/24 10:00 04/11/24 07:40 125 MLS/HR Diagnostic Test (Pha) 1 strip ACHS 04/06/24 22:00 04/11/24 06:32 1 STRIP Insulin Human Regular ACHS SC 04/06/24 22:00 04/11/24 06:29 2 UNITS Dextrose 50 ml UD PRN IV 04/06/24 19:00 Ondansetron HCl 4 mg Q4HP PRN IV 04/06/24 19:00 Acetaminophen 650 mg Q6HP PRN PO 04/06/24 19:00 04/09/24 22:28 650 MG Nitroglycerin 0.4 mg Q5MINP PRN SL 04/06/24 19:00 Morphine Sulfate 2 mg Q30M PRN IV 04/06/24 19:00 Midodrine 10 mg TID@0600,1200,1800 PO 04/07/24 06:00 04/11/24 05:40 10 MG Sodium Chloride 1,000 ml @ 60 mls/hr [id number] IV 04/08/24 10:15 04/11/24 05:20 60 MLS/HR Mupirocin 1 applic BID EACHNOSTRI 04/08/24 22:00 04/13/24 21:59 04/11/24 07:41 1 APPLIC Enoxaparin Sodium 50 mg Q12HR SC 04/08/24 22:00 04/11/24 07:41 50 MG Phenylephrine HCl 250 ml @ 30 mls/hr Q8H20M IV 04/10/24 03:30 04/11/24 03:39 30 MLS/HR Acetylcysteine 200 mg Q8HR NEB 04/10/24 14:00 04/13/24 13:59 04/11/24 06:01 200 MG Albuterol 2.5 mg Q4HPRN NEB 04/10/24 14:00 04/11/24 06:00 2.5 MG Meropenem 50 ml @ 17 mls/hr Q12HR IV 04/10/24 22:00 04/11/24 07:41 17 MLS/HR Laboratory Results Laboratory Tests 04/11/24 03:45 04/11/24 09:57 Chemistry Test 04/11/24 03:45 04/11/24 09:57 Albumin 3.1 g/dL (3.2-4.8) L 3.0 g/dL (3.2-4.8) L Calcium Level 9.2 mg/dL (8.7-10.4) 9.1 mg/dL (8.7-10.4) Magnesium Level 2.4 mg/dL (1.6-2.6) Total Protein 6.7 g/dL (5.7-8.2) 6.5 g/dL (5.7-8.2) LFT Test 04/11/24 03:45 04/11/24 09:57 Alanine Aminotransferase (ALT) 22 U/L (7-40) 24 U/L (7-40) Alkaline Phosphatase 309 U/L (46-116) H 341 U/L (46-116) H Aspartate Amino Transferase (AST) 70 U/L (13-40) H 75 U/L (13-40) H Total Bilirubin 0.2 mg/dL (0.2-1.0) 0.2 mg/dL (0.2-1.0) Urinalysis Test 04/07/24 15:48 Urine Color Yellow (Yellow) Urine Clarity Turbid (Clear) H Urine pH 5.0 (5.0-9.0) Urine Specific [place] 1.015 (1.001-1.035) Urine Protein Trace (Negative) H Urine Ketones Negative (Negative) Urine Blood Negative /uL (Negative) Urine Nitrite Negative (Negative) Urine Bilirubin Negative (Negative) Urine Urobilinogen Normal mg/dL (Negative) Urine Leukocyte Esterase Negative /uL (Negative) Urine RBC <1 /hpf (0 - 4) Urine Microscopic WBC 2 /HPF (0-5) Urine Squamous Epithelial Cells None seen /hpf (<5) Urine Bacteria Few /hpf (None Seen) H Urine Granular Casts Few /lpf (0) Urine Mucus Few (None Seen) Urine Yeast (Budding) Occasional /hpf (None Urine Glucose Normal mg/dL (Normal) Microbiology Microbiology Date/Time Source Procedure Growth Status 04/07/24 17:10 Nose MRSA Screen - Final Methicillin Resistant S.aureus Complete 04/07/24 15:48 Urine - Catheterized Urine Culture - Final Complete 04/06/24 11:25 Blood Blood Culture - Preliminary NO GROWTH AFTER 72 HOURS OF INCUBATION. Resulted Assessment/Plan Assessment/Plan Sepsis Metabolic encephalopathy Rule out UTI Type 2 diabetic Colon cancer Possible underlying pneumonia Acute kidney injury hemodynamically mediated Recent diagnosis of colon cancer metastatic to the liver according to her father Lactic acidosis Chronic anemia Hypomagnesemia Plan 04/07/2024: Broad-spectrum antibiotics Get a UA and urine culture Blood culture Discussed with the father at the bedside DNR Advance directives discussed for 15 minutes 04/08/2024: Sepsis with tachycardia: Give a bolus of IV fluids 500 mL normal saline Hypomagnesemia: Replace IV magnesium Sepsis: Continue IV antibiotics Dehydration: Start IV fluids Hyperkalemia: IV fluids Pneumonia: Rocephin and Zithromax 04/09/2024: Sinus tachycardia: Continue IV fluids and IV antibiotics UTI Pneumonia: Continue Zithromax and Rocephin Right pleural effusion: Consult pulmonology for thoracentesis MRSA in the nostrils: Bactroban ointment Hypomagnesemia: Replace IV Colon cancer Type 2 diabetes Cerebral palsy 04/10/2024: Repeat chest x-ray Antibiotics to meropenem IV and Zithromax Pulmonary consultation Continue IV fluids normal saline Vasopressors as needed Hyperkalemia: Continue IV fluids JONNA due to hemodynamically mediated: Continue IV fluids Discussed with the father at the bedside DNR Pulmonary consult obtained, Dr. Martinez recommended a bronchoscopy but the father declined at this point Continue medical management 04/11/2024: Continue IV antibiotics meropenem and Zithromax Continue IV fluids Oxygen as needed Patient is off vasopressors now, if she stays off the pressors for few more hours then we can downgrade to telemetry DNR Acute kidney injury: Continue IV fluids Hyperkalemia: Continue IV fluids, Lokelma, improved down to 5.0 now Plan discussed with: Patient Date of Service: Apr 11, 2024 Billing Provider: VEENA CLEMENTS MD Common Visit Codes: [id number] CARE 30-74 MIN VEENA CLEMENTS MD Apr 11, 2024 11:16
[2024-04-11] MEDS: MEROPENEM 500MG IVPB 50 ML IV SCH (21:41)
--- NOTE | 2024-04-11 22:31 | DVHPN2 ---
Progress Note - Dictate Date Seen: Apr 11, 2024 Medical Necessity Reason Pt with a Central, PICC or Fol: No Subjective Patient seen and examined at bedside. Remains on supplemental oxygen Overnight events reviewed. vital signs Vital Sign Date Time Temp Pulse Resp B/P (MAP) Pulse Ox O2 Delivery O2 Flow Rate FiO2 04/11/24 22:08 111 20 99 04/11/24 22:07 Nasal Cannula 3.0 04/11/24 22:07 32 04/11/24 20:30 97.3 124/69 (87) 207.1 Total Intake and Output 04/10/24 04/10/24 04/11/24 15:00 23:00 07:00 Intake Total 663.75 ml 763.25 ml 784 ml Output Total 225 ml 100 ml Balance 663.75 ml 538.25 ml 684 ml medications Current Medications Medications Dose Ordered Sig/Flaca Route Start Time Stop Time Status Last Admin Dose Admin Azithromycin 250 ml @ 125 mls/hr DAILY IV 04/07/24 10:00 04/11/24 07:40 125 MLS/HR Diagnostic Test (Pha) 1 strip ACHS 04/06/24 22:00 04/11/24 21:10 1 STRIP Insulin Human Regular ACHS SC 04/06/24 22:00 04/11/24 21:12 3 UNITS Dextrose 50 ml UD PRN IV 04/06/24 19:00 Ondansetron HCl 4 mg Q4HP PRN IV 04/06/24 19:00 Acetaminophen 650 mg Q6HP PRN PO 04/06/24 19:00 04/11/24 17:10 650 MG Nitroglycerin 0.4 mg Q5MINP PRN SL 04/06/24 19:00 Morphine Sulfate 2 mg Q30M PRN IV 04/06/24 19:00 Midodrine 10 mg TID@0600,1200,1800 PO 04/07/24 06:00 04/11/24 17:09 10 MG Sodium Chloride 1,000 ml @ 60 mls/hr [id number] IV 04/08/24 10:15 04/11/24 17:23 60 MLS/HR Mupirocin 1 applic BID EACHNOSTRI 04/08/24 22:00 04/13/24 21:59 04/11/24 21:42 1 APPLIC Enoxaparin Sodium 50 mg Q12HR SC 04/08/24 22:00 04/11/24 21:10 50 MG Acetylcysteine 200 mg Q8HR NEB 04/10/24 14:00 04/13/24 13:59 04/11/24 22:05 200 MG Albuterol 2.5 mg Q4HPRN NEB 04/10/24 14:00 04/11/24 13:46 2.5 MG Pantoprazole Sodium 40 mg HS IV 04/12/24 22:00 Meropenem 50 ml @ 17 mls/hr Q12HR IV 04/11/24 22:00 04/11/24 21:41 17 MLS/HR objective Gen.: Patient lying in bed in no apparent distress. On supplemental oxygen. Head: Normocephalic, atraumatic. Eyes: EOMI/PERRLA. Ears: Normal hearing. Normal anatomy. Neck/trachea: Trachea midline, supple. Nose: Normal external anatomy. Mouth: Moist mucous membranes. Chest: Decreased air entry bilaterally. Coarse breath sounds. Bilateral wheezing. No rhonchi. Cardiovascular: Positive S1, positive S2. Regular rate and rhythm. Abdomen: Positive bowel sounds in all 4 quadrants. Soft, non-tender, non- distended. : Deferred. Rectal: Deferred. Skin: Warm, dry. Intact. Extremities: 2+ radial pulses bilaterally. No lower extremity edema. Neuro: Awake, alert, oriented x3. No gross motor or sensory deficits. Cranial nerves II through XII intact. Gait not assessed. laboratory and microbiology Laboratory Tests 04/11/24 09:57 04/11/24 03:45 Test 04/11/24 09:57 Range/Units Serum Glucose 193 H 74-106 mg/dL Assessment/Plan Impression: Acute hypoxic respiratory failure Dependence on supplemental oxygen Pneumonia, likely gram negative Aspiration pneumonia Down syndrome Atelectasis Legal blindness Deafness Events: Remains on supplemental oxygen, 3 LPM NC Taper O2 as tolerated Chest x-ray reviewed, demonstrates mild congestive heart failure. Bilateral pleural effusions, greater on the right.. Continue antibiotics Incentive spirometry Continue bronchodilators/Mucomyst/CPT. Off pressors, hemodynamically stable. Metabolic acidosis - On IV fluids with NS at 60 ml/hr. Family deferred bronchoscopy, agreed with medical management first. Monitor renal function d/t JONNA. Poor urine output Monitor electrolytes. Supplement as necessary. Monitor hyperkalemia We will order KUB Start Protonix QD Labs and imaging reviewed. Rest of plan as noted below. Plan: Supplemental oxygen Titrate to keep O2 sats above 92%. Head of bed elevation Aspiration precautions Continue antibiotics Incentive spirometry Send sputum cultures if able to produce Midodrine PO TID Accu-Cheks, ISS. Monitor renal function. Monitor electrolytes. Supplement as necessary. Monitor ins and outs. DVT prophylaxis- Lovenox. Patient is DNR. Prognosis: Guarded given patient's multiple co-morbidities. Condition: Critical Rest of plan per hospitalist and other consultants. A total of 35 minutes of critical care time was spent reviewing the patient record, examining the patient, making a diagnostic and therapeutic plan, discussing this plan with the medical personnel, following up on diagnostic studies and following the patient for clinical stability excluding any and all procedures. At least 50% of this time was spent in direct, [id number] contact. Thank you, Dr. lAdridge, for allowing me to participate in this patient's care. Further recommendations will depend on the patient's clinical course. Please do not hesitate to contact me if you have any questions or concerns. This medical document was created using an electronic medical record system with [employer] dictation system. Although these documentations are being carefully reviewed, there may still be some phonetic and typographical changes. The errors are purely typographical, due to imperfection on the software program, and do not reflect any compromise in the patient's medical care. Dietary Evaluation Review Comments: 1. Encourage continued good oral intakes of >/=75% of meals 2. Continue texture-modified diet as medically appropriate Expected Outcomes/Goals: Weight maintenance, maintain skin integrity Plan discussed with: Other (GRICEL Crabtree) Critical Care Time(min): 35 MALACHI WAITE MD Apr 11, 2024 22:31
[2024-04-12] VITALS (17 sets, daily range): BP systolic 93–113; BP diastolic 50–67; PULSE 103–115; RESP 15–20; TEMP 96.7–98; O2SAT 95–100
[2024-04-12 06:37] LABS: Basophils # (auto) 0 10 ^3/uL (0-0.2); Basophils % (auto) 0.1 % (0.0-2.0); Eosinophils # (auto) 0.4 10 ^3/uL (0-0.8); Hematocrit 29.1 % (36.0-46.0); Hemoglobin 9.2 g/dL (12.2-16.2); Lymphocytes # (auto) 0.9 10 ^3/uL (0.4-5.4); Lymphocytes % (auto) 7.2 % (10.0-50.0); Mean Corpuscular Hemoglobin 27.5 pg (28.0-32.0); Mean Corpuscular Hgb Conc. 31.7 g/dL (32.0-36.0); Mean Corpuscular Volume 86.7 fL (80.0-100.0); Monocytes # (auto) 0.7 10 ^3/uL (0-1.3); Monocytes % (auto) 5.7 % (0.0-12.0); Neutrophils # (auto) 9.9 10 ^3/uL (1.6-8.6); Nucleated Red Blood Cells % 0.2 %; Platelet Count (auto) 395 10^3/uL (140-450); Red Blood Cells 3.36 10^6/uL (4.0-5.20); Red Cell Distribution Width 23.8 % (11.8-14.3); White Blood Cell 11.8 10^3/uL (4.4-10.8)
[2024-04-12 06:47] LABS: Alanine Aminotransferase 23 U/L (7-40); Anion Gap 9 (5-15); BUN/Creatinine Ratio 18.5 (10.0-20.0); Calcium 9.5 mg/dL (8.7-10.4); Magnesium 2.2 mg/dL (1.6-2.6); Sodium 138 mmol/L (136-145)
[2024-04-12 06:48] LABS: Total Protein 6.6 g/dL (5.7-8.2)
[2024-04-12 06:57] LABS: Albumin 3.1 g/dL (3.2-4.8); Alkaline Phosphatase 388 U/L (46-116); Aspartate Aminotransferase 66 U/L (13-40); Bilirubin, Total 0.2 mg/dL (0.2-1.0); Blood Urea Nitrogen 29 mg/dL (9-23); Carbon Dioxide 16 mmol/L (20-31); Chloride 113 mmol/L (98-107); Glucose 108 mg/dL (74-106); Potassium 5.2 mmol/L (3.5-5.1)
--- NOTE | 2024-04-12 06:59 | DVH ---
Date: 04/12/2024 05:37 AM Examination: XY KUB ABDOMEN SINGLE VIEW History: ABDOMINAL PAIN Comparison: None TECHNIQUE: Frontal views of the abdomen was obtained. FINDINGS: Bowel gas pattern is unremarkable. The lung bases are unremarkable. No acute osseous abnormality identified. IMPRESSION: Nonobstructive bowel gas pattern. Large stool burden
--- NOTE | 2024-04-12 11:15 | DVHPN2 ---
Subjective Stable No new complaints Changes from previous H/P or p: Changes Objective Vitals Vital Signs Date Time Temp Pulse Resp B/P (MAP) Pulse Ox O2 Delivery O2 Flow Rate FiO2 04/12/24 08:51 97.3 107 19 93/56 (68) 95 97.3 04/12/24 07:20 Nasal Cannula 3.0 04/12/24 07:20 32 Intake/Output Intake and Output 04/12/24 07:00 Intake Total 1504 ml Output Total 200 ml Balance 1304 ml Intake Oral 100 ml IV Total 1404 ml Output Urine Total 200 ml # Bowel Movements 3 General Appearance: Alert, Other (Disoriented to place and time) Lungs: Other (Bilateral rhonchi) Cardiovascular: Regular rate, Normal S1, Normal S2, No murmurs Abdomen: Normal bowel sounds, Soft, No tenderness Extremities: No edema Medications Current Medications Medications Dose Ordered Sig/Flaca Route Start Time Stop Time Status Last Admin Dose Admin Azithromycin 250 ml @ 125 mls/hr DAILY IV 04/07/24 10:00 04/12/24 09:49 125 MLS/HR Diagnostic Test (Pha) 1 strip ACHS 04/06/24 22:00 04/11/24 21:10 1 STRIP Insulin Human Regular ACHS SC 04/06/24 22:00 04/11/24 21:12 3 UNITS Dextrose 50 ml UD PRN IV 04/06/24 19:00 Ondansetron HCl 4 mg Q4HP PRN IV 04/06/24 19:00 Acetaminophen 650 mg Q6HP PRN PO 04/06/24 19:00 04/11/24 17:10 650 MG Nitroglycerin 0.4 mg Q5MINP PRN SL 04/06/24 19:00 Morphine Sulfate 2 mg Q30M PRN IV 04/06/24 19:00 Midodrine 10 mg TID@0600,1200,1800 PO 04/07/24 06:00 04/12/24 06:21 10 MG Sodium Chloride 1,000 ml @ 60 mls/hr [id number] IV 04/08/24 10:15 04/11/24 17:23 60 MLS/HR Mupirocin 1 applic BID EACHNOSTRI 04/08/24 22:00 04/13/24 21:59 04/12/24 09:49 1 APPLIC Enoxaparin Sodium 50 mg Q12HR SC 04/08/24 22:00 04/12/24 09:49 50 MG Acetylcysteine 200 mg Q8HR NEB 04/10/24 14:00 04/13/24 13:59 04/12/24 07:20 200 MG Albuterol 2.5 mg Q4HPRN NEB 04/10/24 14:00 04/12/24 07:20 2.5 MG Pantoprazole Sodium 40 mg HS IV 04/12/24 22:00 Meropenem 50 ml @ 17 mls/hr Q12HR IV 04/11/24 22:00 04/11/24 21:41 17 MLS/HR Laboratory Results Laboratory Tests 04/12/24 06:00 Chemistry Test 04/12/24 06:00 Albumin 3.1 g/dL (3.2-4.8) L Calcium Level 9.5 mg/dL (8.7-10.4) Magnesium Level 2.2 mg/dL (1.6-2.6) Total Protein 6.6 g/dL (5.7-8.2) LFT Test 04/12/24 06:00 Alanine Aminotransferase (ALT) 23 U/L (7-40) Alkaline Phosphatase 388 U/L (46-116) H Aspartate Amino Transferase (AST) 66 U/L (13-40) H Total Bilirubin 0.2 mg/dL (0.2-1.0) Urinalysis Test 04/07/24 15:48 Urine Color Yellow (Yellow) Urine Clarity Turbid (Clear) H Urine pH 5.0 (5.0-9.0) Urine Specific [place] 1.015 (1.001-1.035) Urine Protein Trace (Negative) H Urine Ketones Negative (Negative) Urine Blood Negative /uL (Negative) Urine Nitrite Negative (Negative) Urine Bilirubin Negative (Negative) Urine Urobilinogen Normal mg/dL (Negative) Urine Leukocyte Esterase Negative /uL (Negative) Urine RBC <1 /hpf (0 - 4) Urine Microscopic WBC 2 /HPF (0-5) Urine Squamous Epithelial Cells None seen /hpf (<5) Urine Bacteria Few /hpf (None Seen) H Urine Granular Casts Few /lpf (0) Urine Mucus Few (None Seen) Urine Yeast (Budding) Occasional /hpf (None Urine Glucose Normal mg/dL (Normal) Microbiology Microbiology Date/Time Source Procedure Growth Status 04/07/24 17:10 Nose MRSA Screen - Final Methicillin Resistant S.aureus Complete 04/07/24 15:48 Urine - Catheterized Urine Culture - Final Complete 04/06/24 11:25 Blood Blood Culture - Final NO GROWTH AFTER 5 DAYS OF INCUBATION. Complete Assessment/Plan Assessment/Plan Sepsis Metabolic encephalopathy Rule out UTI Type 2 diabetic Colon cancer Possible underlying pneumonia Acute kidney injury hemodynamically mediated Recent diagnosis of colon cancer metastatic to the liver according to her father Lactic acidosis Chronic anemia Hypomagnesemia Plan 04/07/2024: Broad-spectrum antibiotics Get a UA and urine culture Blood culture Discussed with the father at the bedside DNR Advance directives discussed for 15 minutes 04/08/2024: Sepsis with tachycardia: Give a bolus of IV fluids 500 mL normal saline Hypomagnesemia: Replace IV magnesium Sepsis: Continue IV antibiotics Dehydration: Start IV fluids Hyperkalemia: IV fluids Pneumonia: Rocephin and Zithromax 04/09/2024: Sinus tachycardia: Continue IV fluids and IV antibiotics UTI Pneumonia: Continue Zithromax and Rocephin Right pleural effusion: Consult pulmonology for thoracentesis MRSA in the nostrils: Bactroban ointment Hypomagnesemia: Replace IV Colon cancer Type 2 diabetes Cerebral palsy 04/10/2024: Repeat chest x-ray Antibiotics to meropenem IV and Zithromax Pulmonary consultation Continue IV fluids normal saline Vasopressors as needed Hyperkalemia: Continue IV fluids JONNA due to hemodynamically mediated: Continue IV fluids Discussed with the father at the bedside DNR Pulmonary consult obtained, Dr. Martinez recommended a bronchoscopy but the father declined at this point Continue medical management 04/11/2024: Continue IV antibiotics meropenem and Zithromax Continue IV fluids Oxygen as needed Patient is off vasopressors now, if she stays off the pressors for few more hours then we can downgrade to telemetry DNR Acute kidney injury: Continue IV fluids Hyperkalemia: Continue IV fluids, Lokelma, improved down to 5.0 now 04/12/2024: Hyperkalemia: Continue IV fluids Pneumonia: Continue IV antibiotics Mucus plugs: Continue Mucomyst med nebs Med neb treatments Oxygen as needed Midodrine DNR Watch closely Plan discussed with: Other My Orders Orders - VEENA CLEMENTS MD Procedure Category Date Status Time Transfer Orders XFER 04/11/24 Transmitted 16:27 Meropenem 500mg Ivpb PHA 04/11/24 In Process (Merrem 500mg/Ns) 22:00 Date of Service: Apr 12, 2024 Billing Provider: VEENA CLEMENTS MD Common Visit Codes: [id number] INP/OBS CARE(HIGH) VEENA CLEMENTS MD Apr 12, 2024 11:15
[2024-04-12] MEDS: PANTOPRAZOLE 40 MG/10 ML VIAL INJ IV SCH (21:20)
[2024-04-13] VITALS (16 sets, daily range): BP systolic 99–111; BP diastolic 52–69; PULSE 87–117; RESP 16–20; TEMP 97.2–98.6; O2SAT 94–100
[2024-04-13 11:40] LABS: Basophils # (auto) 0 10 ^3/uL (0-0.2); Basophils % (auto) 0.4 % (0.0-2.0); Eosinophils # (auto) 0.3 10 ^3/uL (0-0.8); Eosinophils % (auto) 3.4 % (0.0-7.0); Hematocrit 28.1 % (36.0-46.0); Hemoglobin 8.8 g/dL (12.2-16.2); Lymphocytes # (auto) 0.7 10 ^3/uL (0.4-5.4); Lymphocytes % (auto) 6.9 % (10.0-50.0); Mean Corpuscular Hemoglobin 27.5 pg (28.0-32.0); Mean Corpuscular Hgb Conc. 31.3 g/dL (32.0-36.0); Mean Corpuscular Volume 87.7 fL (80.0-100.0); Monocytes # (auto) 0.6 10 ^3/uL (0-1.3); Monocytes % (auto) 6.8 % (0.0-12.0); Neutrophils # (auto) 7.8 10 ^3/uL (1.6-8.6); Neutrophils % (auto) 82.5 % (37.0-80.0); Nucleated Red Blood Cells % 0.1 %; Platelet Count (auto) 386 10^3/uL (140-450); Red Cell Distribution Width 23.6 % (11.8-14.3); White Blood Cell 9.4 10^3/uL (4.4-10.8)
[2024-04-13 11:58] LABS: Alanine Aminotransferase 25 U/L (7-40); Anion Gap 9 (5-15); BUN/Creatinine Ratio 17.6 (10.0-20.0); Calcium 9.4 mg/dL (8.7-10.4); Magnesium 2.1 mg/dL (1.6-2.6)
--- NOTE | 2024-04-13 11:58 | DVHPN2 ---
Subjective Doing well No distress Changes from previous H/P or p: Changes Objective Vitals Vital Signs Date Time Temp Pulse Resp B/P (MAP) Pulse Ox O2 Delivery O2 Flow Rate FiO2 04/13/24 09:00 97.4 117 16 111/69 (83) 100 97.4 04/13/24 08:51 Nasal Cannula 3.0 04/13/24 08:51 32 Intake/Output Intake and Output 04/13/24 07:00 Intake Total 3054 ml Output Total 200 ml Balance 2854 ml Intake Oral 1470 ml IV Total 1584 ml Output Urine Total 200 ml # Bowel Movements 1 General Appearance: Alert, Other (Disoriented to place and time) Lungs: Other (Bilateral rhonchi) Cardiovascular: Regular rate, Normal S1, Normal S2, No murmurs Abdomen: Normal bowel sounds, Soft, No tenderness Extremities: No edema Medications Current Medications Medications Dose Ordered Sig/Flaca Route Start Time Stop Time Status Last Admin Dose Admin Azithromycin 250 ml @ 125 mls/hr DAILY IV 04/07/24 10:00 04/13/24 09:16 125 MLS/HR Diagnostic Test (Pha) 1 strip ACHS 04/06/24 22:00 04/13/24 11:02 1 STRIP Insulin Human Regular ACHS SC 04/06/24 22:00 04/13/24 11:07 2 UNITS Dextrose 50 ml UD PRN IV 04/06/24 19:00 Ondansetron HCl 4 mg Q4HP PRN IV 04/06/24 19:00 Acetaminophen 650 mg Q6HP PRN PO 04/06/24 19:00 04/12/24 13:16 650 MG Nitroglycerin 0.4 mg Q5MINP PRN SL 04/06/24 19:00 Morphine Sulfate 2 mg Q30M PRN IV 04/06/24 19:00 Midodrine 10 mg TID@0600,1200,1800 PO 04/07/24 06:00 04/13/24 11:02 10 MG Sodium Chloride 1,000 ml @ 60 mls/hr [id number] IV 04/08/24 10:15 04/13/24 06:40 60 MLS/HR Mupirocin 1 applic BID EACHNOSTRI 04/08/24 22:00 04/13/24 21:59 04/13/24 09:17 1 APPLIC Enoxaparin Sodium 50 mg Q12HR SC 04/08/24 22:00 04/13/24 09:17 50 MG Acetylcysteine 200 mg Q8HR NEB 04/10/24 14:00 04/13/24 13:59 04/13/24 08:51 200 MG Albuterol 2.5 mg Q4HPRN NEB 04/10/24 14:00 04/13/24 08:51 2.5 MG Pantoprazole Sodium 40 mg HS IV 04/12/24 22:00 04/12/24 21:20 40 MG Meropenem 50 ml @ 17 mls/hr Q12HR IV 04/11/24 22:00 04/13/24 09:17 17 MLS/HR Laboratory Results Laboratory Tests 04/13/24 11:19 Chemistry Test 04/13/24 11:19 Albumin Pending Calcium Level Pending Magnesium Level Pending Total Protein Pending LFT Test 04/13/24 11:19 Alanine Aminotransferase (ALT) Pending Alkaline Phosphatase Pending Aspartate Amino Transferase (AST) Pending Total Bilirubin Pending Urinalysis Test 04/07/24 15:48 Urine Color Yellow (Yellow) Urine Clarity Turbid (Clear) H Urine pH 5.0 (5.0-9.0) Urine Specific [place] 1.015 (1.001-1.035) Urine Protein Trace (Negative) H Urine Ketones Negative (Negative) Urine Blood Negative /uL (Negative) Urine Nitrite Negative (Negative) Urine Bilirubin Negative (Negative) Urine Urobilinogen Normal mg/dL (Negative) Urine Leukocyte Esterase Negative /uL (Negative) Urine RBC <1 /hpf (0 - 4) Urine Microscopic WBC 2 /HPF (0-5) Urine Squamous Epithelial Cells None seen /hpf (<5) Urine Bacteria Few /hpf (None Seen) H Urine Granular Casts Few /lpf (0) Urine Mucus Few (None Seen) Urine Yeast (Budding) Occasional /hpf (None Urine Glucose Normal mg/dL (Normal) Microbiology Microbiology Date/Time Source Procedure Growth Status 04/07/24 17:10 Nose MRSA Screen - Final Methicillin Resistant S.aureus Complete 04/07/24 15:48 Urine - Catheterized Urine Culture - Final Complete 04/06/24 11:25 Blood Blood Culture - Final NO GROWTH AFTER 5 DAYS OF INCUBATION. Complete Assessment/Plan Assessment/Plan Sepsis Metabolic encephalopathy Rule out UTI Type 2 diabetic Colon cancer Possible underlying pneumonia Acute kidney injury hemodynamically mediated Recent diagnosis of colon cancer metastatic to the liver according to her father Lactic acidosis Chronic anemia Hypomagnesemia Plan 04/07/2024: Broad-spectrum antibiotics Get a UA and urine culture Blood culture Discussed with the father at the bedside DNR Advance directives discussed for 15 minutes 04/08/2024: Sepsis with tachycardia: Give a bolus of IV fluids 500 mL normal saline Hypomagnesemia: Replace IV magnesium Sepsis: Continue IV antibiotics Dehydration: Start IV fluids Hyperkalemia: IV fluids Pneumonia: Rocephin and Zithromax 04/09/2024: Sinus tachycardia: Continue IV fluids and IV antibiotics UTI Pneumonia: Continue Zithromax and Rocephin Right pleural effusion: Consult pulmonology for thoracentesis MRSA in the nostrils: Bactroban ointment Hypomagnesemia: Replace IV Colon cancer Type 2 diabetes Cerebral palsy 04/10/2024: Repeat chest x-ray Antibiotics to meropenem IV and Zithromax Pulmonary consultation Continue IV fluids normal saline Vasopressors as needed Hyperkalemia: Continue IV fluids JONNA due to hemodynamically mediated: Continue IV fluids Discussed with the father at the bedside DNR Pulmonary consult obtained, Dr. Martinez recommended a bronchoscopy but the father declined at this point Continue medical management 04/11/2024: Continue IV antibiotics meropenem and Zithromax Continue IV fluids Oxygen as needed Patient is off vasopressors now, if she stays off the pressors for few more hours then we can downgrade to telemetry DNR Acute kidney injury: Continue IV fluids Hyperkalemia: Continue IV fluids, Lokelma, improved down to 5.0 now 04/12/2024: Hyperkalemia: Continue IV fluids Pneumonia: Continue IV antibiotics Mucus plugs: Continue Mucomyst med nebs Med neb treatments Oxygen as needed Midodrine DNR Watch closely 04/13/2024: Continue the current regimen of IV antibiotics Oxygen as needed Monitor closely DNR Plan discussed with: Patient, Other Date of Service: Apr 13, 2024 Billing Provider: VEENA CLEMENTS MD Common Visit Codes: [id number] INP/OBS CARE(HIGH) VEENA CLEMENTS MD Apr 13, 2024 11:58
[2024-04-13 11:59] LABS: Total Protein 6.6 g/dL (5.7-8.2)
[2024-04-13 12:00] LABS: Alkaline Phosphatase 423 U/L (46-116); Aspartate Aminotransferase 58 U/L (13-40); Bilirubin, Total 0.2 mg/dL (0.2-1.0); Blood Urea Nitrogen 31 mg/dL (9-23); Carbon Dioxide 15 mmol/L (20-31); Chloride 111 mmol/L (98-107); Glucose 162 mg/dL (74-106); Sodium 135 mmol/L (136-145)
[2024-04-13 12:03] LABS: Potassium 6.2 mmol/L (3.5-5.1)
[2024-04-13] MEDS: FUROSEMIDE 40 MG/4 ML VIAL IV ONE (12:30)
[2024-04-13] MEDS: SODIUM CHLORIDE 0.9% 1,000 ML IV SCH (13:07)
[2024-04-13] MEDS: DEXTROSE (50%) 50ML SYRG IV ONE (13:08)
[2024-04-13] MEDS: CALCIUM GLUC 1,000mg/50ml-NS 50 ML IV ONE (13:08)
[2024-04-13] MEDS: InsuLIN REG 1unit/0.01ml Soln (100units/ml) IV ONE (13:17)
[2024-04-13] MEDS: SODIUM ZIRCONIUM CYCL 10 GM PAK PO ONE (13:18)
[2024-04-14] VITALS (14 sets, daily range): BP systolic 92–102; BP diastolic 53–79; PULSE 77–117; RESP 14–19; TEMP 96.7–98.2; O2SAT 95–100
--- NOTE | 2024-04-14 11:14 | DVHPN2 ---
Subjective Doing well No distress On 2 liters O2 Changes from previous H/P or p: Changes Objective Vitals Vital Signs Date Time Temp Pulse Resp B/P (MAP) Pulse Ox O2 Delivery O2 Flow Rate FiO2 04/14/24 09:45 98 Nasal Cannula* 2 28 04/14/24 09:00 97.2 110 19 99/62 (74) 97.2 Intake/Output Intake and Output 04/14/24 07:00 Intake Total 1884 ml Balance 1884 ml Intake Oral 636 ml IV Total 1248 ml # Voids 150 # Bowel Movements 1 General Appearance: Alert, Other (Disoriented to place and time) Lungs: Other (Bilateral rhonchi) Cardiovascular: Regular rate, Normal S1, Normal S2, No murmurs Abdomen: Normal bowel sounds, Soft, No tenderness Extremities: No edema Medications Current Medications Medications Dose Ordered Sig/Flaca Route Start Time Stop Time Status Last Admin Dose Admin Azithromycin 250 ml @ 125 mls/hr DAILY IV 04/07/24 10:00 04/14/24 10:05 125 MLS/HR Diagnostic Test (Pha) 1 strip ACHS 04/06/24 22:00 04/14/24 06:09 1 STRIP Insulin Human Regular ACHS SC 04/06/24 22:00 04/13/24 11:07 2 UNITS Dextrose 50 ml UD PRN IV 04/06/24 19:00 Ondansetron HCl 4 mg Q4HP PRN IV 04/06/24 19:00 Acetaminophen 650 mg Q6HP PRN PO 04/06/24 19:00 04/13/24 15:07 650 MG Nitroglycerin 0.4 mg Q5MINP PRN SL 04/06/24 19:00 Morphine Sulfate 2 mg Q30M PRN IV 04/06/24 19:00 Midodrine 10 mg TID@0600,1200,1800 PO 04/07/24 06:00 04/14/24 06:25 10 MG Enoxaparin Sodium 50 mg Q12HR SC 04/08/24 22:00 04/14/24 10:06 50 MG Albuterol 2.5 mg Q4HPRN NEB 04/10/24 14:00 04/14/24 07:37 2.5 MG Pantoprazole Sodium 40 mg HS IV 04/12/24 22:00 04/13/24 21:39 40 MG Meropenem 50 ml @ 17 mls/hr Q12HR IV 04/11/24 22:00 04/13/24 21:39 17 MLS/HR Sodium Chloride 1,000 ml @ 100 mls/hr Q10H IV 04/13/24 12:30 04/13/24 22:10 100 MLS/HR Laboratory Results Laboratory Tests 04/13/24 11:19 Chemistry Test 04/13/24 11:19 04/14/24 10:25 Albumin 3.0 g/dL (3.2-4.8) L Calcium Level 9.4 mg/dL (8.7-10.4) Pending Magnesium Level 2.1 mg/dL (1.6-2.6) Total Protein 6.6 g/dL (5.7-8.2) LFT Test 04/13/24 11:19 Alanine Aminotransferase (ALT) 25 U/L (7-40) Alkaline Phosphatase 423 U/L (46-116) H Aspartate Amino Transferase (AST) 58 U/L (13-40) H Total Bilirubin 0.2 mg/dL (0.2-1.0) Urinalysis Test 04/07/24 15:48 Urine Color Yellow (Yellow) Urine Clarity Turbid (Clear) H Urine pH 5.0 (5.0-9.0) Urine Specific [place] 1.015 (1.001-1.035) Urine Protein Trace (Negative) H Urine Ketones Negative (Negative) Urine Blood Negative /uL (Negative) Urine Nitrite Negative (Negative) Urine Bilirubin Negative (Negative) Urine Urobilinogen Normal mg/dL (Negative) Urine Leukocyte Esterase Negative /uL (Negative) Urine RBC <1 /hpf (0 - 4) Urine Microscopic WBC 2 /HPF (0-5) Urine Squamous Epithelial Cells None seen /hpf (<5) Urine Bacteria Few /hpf (None Seen) H Urine Granular Casts Few /lpf (0) Urine Mucus Few (None Seen) Urine Yeast (Budding) Occasional /hpf (None Urine Glucose Normal mg/dL (Normal) Microbiology Microbiology Date/Time Source Procedure Growth Status 04/07/24 17:10 Nose MRSA Screen - Final Methicillin Resistant S.aureus Complete 04/07/24 15:48 Urine - Catheterized Urine Culture - Final Complete 04/06/24 11:25 Blood Blood Culture - Final NO GROWTH AFTER 5 DAYS OF INCUBATION. Complete Assessment/Plan Assessment/Plan Sepsis Metabolic encephalopathy Rule out UTI Type 2 diabetic Colon cancer Possible underlying pneumonia Acute kidney injury hemodynamically mediated Recent diagnosis of colon cancer metastatic to the liver according to her father Lactic acidosis Chronic anemia Hypomagnesemia Plan 04/07/2024: Broad-spectrum antibiotics Get a UA and urine culture Blood culture Discussed with the father at the bedside DNR Advance directives discussed for 15 minutes 04/08/2024: Sepsis with tachycardia: Give a bolus of IV fluids 500 mL normal saline Hypomagnesemia: Replace IV magnesium Sepsis: Continue IV antibiotics Dehydration: Start IV fluids Hyperkalemia: IV fluids Pneumonia: Rocephin and Zithromax 04/09/2024: Sinus tachycardia: Continue IV fluids and IV antibiotics UTI Pneumonia: Continue Zithromax and Rocephin Right pleural effusion: Consult pulmonology for thoracentesis MRSA in the nostrils: Bactroban ointment Hypomagnesemia: Replace IV Colon cancer Type 2 diabetes Cerebral palsy 04/10/2024: Repeat chest x-ray Antibiotics to meropenem IV and Zithromax Pulmonary consultation Continue IV fluids normal saline Vasopressors as needed Hyperkalemia: Continue IV fluids JONNA due to hemodynamically mediated: Continue IV fluids Discussed with the father at the bedside DNR Pulmonary consult obtained, Dr. Martinez recommended a bronchoscopy but the father declined at this point Continue medical management 04/11/2024: Continue IV antibiotics meropenem and Zithromax Continue IV fluids Oxygen as needed Patient is off vasopressors now, if she stays off the pressors for few more hours then we can downgrade to telemetry DNR Acute kidney injury: Continue IV fluids Hyperkalemia: Continue IV fluids, Lokelma, improved down to 5.0 now 04/12/2024: Hyperkalemia: Continue IV fluids Pneumonia: Continue IV antibiotics Mucus plugs: Continue Mucomyst med nebs Med neb treatments Oxygen as needed Midodrine DNR Watch closely 04/13/2024: Continue the current regimen of IV antibiotics Oxygen as needed Monitor closely DNR 04/14/2024: Continue IV antibiotics O2 DNR JONNA: Continue IV fluids, Check the labs K+ level is pending Give Lactulose MRSA nares Plan discussed with: Other My Orders Orders - VEENA CLEMENTS MD Procedure Category Date Status Time Sodium Chloride 0.9% PHA 04/13/24 In Process 12:30 *[facility] CONS 04/13/24 Transmitted -[place] 12:31 Lactulose Oral PHA 04/14/24 Verified 11:15 Date of Service: Apr 14, 2024 Billing Provider: VEENA CLEMENTS MD Common Visit Codes: [id number] INP/OBS CARE(HIGH) VEENA CLEMENTS MD Apr 14, 2024 11:14
[2024-04-14 11:58] LABS: Anion Gap 9 (5-15); Calcium 9.4 mg/dL (8.7-10.4)
[2024-04-14] MEDS: SODIUM CHLORIDE 0.9% 1,000 ML IV SCH (12:00)
[2024-04-14 12:05] LABS: BUN/Creatinine Ratio 17.4 (10.0-20.0)
--- NOTE | 2024-04-14 12:08 | DVHINCON2 ---
Date of service: Apr 14, 2024 Reason for Consultation Acute kidney injury History of Present Illness 48-year-old female past medical history of cerebral palsy, bed ridden, legally blind and deaf in a chronic care facility brought to the hospital due to hypotension. Nephrology consult symptoms elevated creatinine. Patient also noted to have elevated potassium level Past Medical History cerebral palsy Hypertension Allergies: Coded Allergies: No Known Drug Allergy (Verified Allergy, Unknown, 08/20/23) Home Meds Active Scripts Magnesium Oxide (MAGNESIUM OXIDE) 400 Mg Tab, 1 TAB PO DAILY, #10 TAB Prov:VEENA CLEMENTS MD 08/23/23 Gentamicin Sulfate (Gentamicin Sulfate) 0.3 % Ch[place], 1 DROP EACHEYE QID for 5 Days, #5 ML Prov:VEENA CLEMENTS MD 08/23/23 Ciprofloxacin Hcl (Cipro) 250 Mg Tab, 250 MG PO BID for 5 Days, #10 TAB Prov:VEENA CLEMENTS MD 08/23/23 Reported Medications Ferrous Sulfate (Ferosul) 325 Mg Tab, 1 TAB PO BID 08/20/23 Atorvastatin Calcium (ATORVASTATIN CALCIUM) 10 Mg Tab, 1 TAB PO DAILY 08/20/23 Losartan Potassium (Losartan Potassium) 50 Mg Tab, 1 TAB PO DAILY 08/20/23 Metoprolol Succinate (Metoprolol Succinate Er) 25 Mg Tab, 0.5 TAB PO DAILY 08/20/23 Metformin Hydrochloride (Metformin Hcl) 850 Mg Tab, 1 TAB PO BID 08/20/23 Current Medications Current Medications Medications (Trade) Dose Ordered Sig/Flaca Route PRN Reason Start Time Stop Time Status Last Admin Sodium Chloride 1,000 ml @ 100 mls/hr Q10H IV 04/13/24 12:30 04/13/24 22:10 Family History: Patient reports no known family medical history. H&P Exam Vital Signs/I&O Vital Sign Date Time Temp Pulse Resp B/P (MAP) Pulse Ox O2 Delivery O2 Flow Rate FiO2 04/14/24 09:45 98 Nasal Cannula* 2 28 04/14/24 09:00 97.2 110 19 99/62 (74) 97.2 Intake and Output 04/13/24 04/14/24 19:00 07:00 Intake Total 1748 ml 136 ml Balance 1748 ml 136 ml Intake Oral 500 ml 136 ml IV Total 1248 ml # Voids 50 100 # Bowel Movements 1 Physical Exam GENERAL:Abnormal, LUNGS:Normal, CVS:Normal (Sinus tachycardia) Labs/Diagnostic Data Labs/Diagnostic Data Laboratory Tests Test 04/14/24 11:46 04/14/24 10:25 04/14/24 06:04 04/13/24 21:55 Range/Units POC Glucose 99 122 H 70-106 mg/dl Test 04/13/24 17:18 04/13/24 13:35 04/13/24 13:15 04/13/24 11:19 Range/Units POC Glucose 132 H 250 H 92 70-106 mg/dl White Blood Count 9.4 4.4-10.8 10^3/uL Red Blood Count 3.20 L 4.0-5.20 10^6/uL Hemoglobin 8.8 L 12.2-16.2 g/dL Hematocrit 28.1 L 36.0-46.0 % Mean Corpuscular Volume 87.7 80.0-100.0 fL Mean Corpuscular Hemoglobin 27.5 L 28.0-32.0 pg Mean Corpuscular Hemoglobin Concent 31.3 L 32.0-36.0 g/dL Red Cell Distribution Width 23.6 H 11.8-14.3 % Platelet Count 386 140-450 10^3/uL Mean Platelet Volume 6.5 L 6.9-10.8 fL Neutrophils (%) (Auto) 82.5 H 37.0-80.0 % Lymphocytes (%) (Auto) 6.9 L 10.0-50.0 % Monocytes (%) (Auto) 6.8 0.0-12.0 % Eosinophils (%) (Auto) 3.4 0.0-7.0 % Basophils (%) (Auto) 0.4 0.0-2.0 % Neutrophils # (Auto) 7.8 1.6-8.6 10 ^3/uL Lymphocytes # (Auto) 0.7 0.4-5.4 10 ^3/uL Monocytes # (Auto) 0.6 0-1.3 10 ^3/uL Eosinophils # (Auto) 0.3 0-0.8 10 ^3/uL Basophils # (Auto) 0 0-0.2 10 ^3/uL Nucleated Red Blood Cells 0.1 % Sodium Level 135 L 136-145 mmol/L Potassium Level 6.2 *H 3.5-5.1 mmol/L Chloride Level 111 H 98-107 mmol/L Carbon Dioxide Level 15 L 20-31 mmol/L Anion Gap 9 5-15 Blood Urea Nitrogen 31 H 9-23 mg/dL Creatinine 1.76 H 0.550-1.02 mg/dL Glomerular Filtration Rate Calc 35 >90 mL/min BUN/Creatinine Ratio 17.6 10.0-20.0 Serum Glucose 162 H 74-106 mg/dL Calcium Level 9.4 8.7-10.4 mg/dL Magnesium Level 2.1 1.6-2.6 mg/dL Total Bilirubin 0.2 0.2-1.0 mg/dL Aspartate Amino Transferase (AST) 58 H 13-40 U/L Alanine Aminotransferase (ALT) 25 7-40 U/L Alkaline Phosphatase 423 H 46-116 U/L Total Protein 6.6 5.7-8.2 g/dL Albumin 3.0 L 3.2-4.8 g/dL Test 04/13/24 11:03 04/13/24 06:28 04/12/24 21:24 04/12/24 18:01 Range/Units POC Glucose 152 H 79 142 H 144 H 70-106 mg/dl Test 04/12/24 11:29 04/12/24 06:00 04/12/24 05:18 04/11/24 21:11 Range/Units POC Glucose 196 H 98 170 H 70-106 mg/dl White Blood Count 11.8 #H 4.4-10.8 10^3/uL Red Blood Count 3.36 L 4.0-5.20 10^6/uL Hemoglobin 9.2 L 12.2-16.2 g/dL Hematocrit 29.1 L 36.0-46.0 % Mean Corpuscular Volume 86.7 80.0-100.0 fL Mean Corpuscular Hemoglobin 27.5 L 28.0-32.0 pg Mean Corpuscular Hemoglobin Concent 31.7 L 32.0-36.0 g/dL Red Cell Distribution Width 23.8 H 11.8-14.3 % Platelet Count 395 140-450 10^3/uL Mean Platelet Volume 6.7 L 6.9-10.8 fL Neutrophils (%) (Auto) 84.0 H 37.0-80.0 % Lymphocytes (%) (Auto) 7.2 L 10.0-50.0 % Monocytes (%) (Auto) 5.7 0.0-12.0 % Eosinophils (%) (Auto) 3.0 0.0-7.0 % Basophils (%) (Auto) 0.1 0.0-2.0 % Neutrophils # (Auto) 9.9 H 1.6-8.6 10 ^3/uL Lymphocytes # (Auto) 0.9 0.4-5.4 10 ^3/uL Monocytes # (Auto) 0.7 0-1.3 10 ^3/uL Eosinophils # (Auto) 0.4 0-0.8 10 ^3/uL Basophils # (Auto) 0 0-0.2 10 ^3/uL Nucleated Red Blood Cells 0.2 % Sodium Level 138 136-145 mmol/L Potassium Level 5.2 H 3.5-5.1 mmol/L Chloride Level 113 H 98-107 mmol/L Carbon Dioxide Level 16 L 20-31 mmol/L Anion Gap 9 5-15 Blood Urea Nitrogen 29 H 9-23 mg/dL Creatinine 1.57 H 0.550-1.02 mg/dL Glomerular Filtration Rate Calc 40 >90 mL/min BUN/Creatinine Ratio 18.5 10.0-20.0 Serum Glucose 108 H 74-106 mg/dL Calcium Level 9.5 8.7-10.4 mg/dL Magnesium Level 2.2 1.6-2.6 mg/dL Total Bilirubin 0.2 0.2-1.0 mg/dL Aspartate Amino Transferase (AST) 66 H 13-40 U/L Alanine Aminotransferase (ALT) 23 7-40 U/L Alkaline Phosphatase 388 H 46-116 U/L Total Protein 6.6 5.7-8.2 g/dL Albumin 3.1 L 3.2-4.8 g/dL Test 04/11/24 16:57 04/11/24 11:45 04/11/24 09:57 04/11/24 05:36 Range/Units POC Glucose 139 H 152 H 148 H 70-106 mg/dl Sodium Level 136 136-145 mmol/L Potassium Level 5.0 3.5-5.1 mmol/L Chloride Level 112 H 98-107 mmol/L Carbon Dioxide Level 14 L 20-31 mmol/L Anion Gap 10 5-15 Blood Urea Nitrogen 23 9-23 mg/dL Creatinine 1.51 H 0.550-1.02 mg/dL Glomerular Filtration Rate Calc 42 >90 mL/min BUN/Creatinine Ratio 15.2 10.0-20.0 Serum Glucose 193 H 74-106 mg/dL Calcium Level 9.1 8.7-10.4 mg/dL Total Bilirubin 0.2 0.2-1.0 mg/dL Aspartate Amino Transferase (AST) 75 H 13-40 U/L Alanine Aminotransferase (ALT) 24 7-40 U/L Alkaline Phosphatase 341 H 46-116 U/L Total Protein 6.5 5.7-8.2 g/dL Albumin 3.0 L 3.2-4.8 g/dL Test 04/11/24 03:45 04/10/24 22:05 04/10/24 17:38 04/10/24 12:03 Range/Units White Blood Count 16.5 H 4.4-10.8 10^3/uL Red Blood Count 3.48 L 4.0-5.20 10^6/uL Hemoglobin 9.3 L 12.2-16.2 g/dL Hematocrit 30.8 #L 36.0-46.0 % Mean Corpuscular Volume 88.4 80.0-100.0 fL Mean Corpuscular Hemoglobin 26.6 L 28.0-32.0 pg Mean Corpuscular Hemoglobin Concent 30.1 L 32.0-36.0 g/dL Red Cell Distribution Width 23.7 H 11.8-14.3 % Platelet Count 400 140-450 10^3/uL Mean Platelet Volume 6.4 L 6.9-10.8 fL Neutrophils (%) (Auto) 87.0 H 37.0-80.0 % Lymphocytes (%) (Auto) 6.0 L 10.0-50.0 % Monocytes (%) (Auto) 6.0 0.0-12.0 % Eosinophils (%) (Auto) 0.7 0.0-7.0 % Basophils (%) (Auto) 0.3 0.0-2.0 % Neutrophils # (Auto) 14.4 H 1.6-8.6 10 ^3/uL Lymphocytes # (Auto) 1.0 0.4-5.4 10 ^3/uL Monocytes # (Auto) 1.0 0-1.3 10 ^3/uL Eosinophils # (Auto) 0.1 0-0.8 10 ^3/uL Basophils # (Auto) 0 0-0.2 10 ^3/uL Nucleated Red Blood Cells 0.1 % Sodium Level 137 136-145 mmol/L Potassium Level 5.6 *H 3.5-5.1 mmol/L Chloride Level 112 H 98-107 mmol/L Carbon Dioxide Level 16 L 20-31 mmol/L Anion Gap 9 5-15 Blood Urea Nitrogen 28 #H 9-23 mg/dL Creatinine 1.53 H 0.550-1.02 mg/dL Glomerular Filtration Rate Calc 42 >90 mL/min BUN/Creatinine Ratio 18.3 10.0-20.0 Serum Glucose 159 H 74-106 mg/dL Calcium Level 9.2 8.7-10.4 mg/dL Magnesium Level 2.4 1.6-2.6 mg/dL Total Bilirubin 0.2 0.2-1.0 mg/dL Aspartate Amino Transferase (AST) 70 H 13-40 U/L Alanine Aminotransferase (ALT) 22 7-40 U/L Alkaline Phosphatase 309 H 46-116 U/L Total Protein 6.7 5.7-8.2 g/dL Albumin 3.1 L 3.2-4.8 g/dL POC Glucose 166 H 118 H 178 H 70-106 mg/dl Test 04/10/24 06:21 04/09/24 22:20 04/09/24 18:54 04/09/24 11:29 Range/Units POC Glucose 143 H 203 H 202 H 115 H 70-106 mg/dl Test 04/09/24 09:00 04/09/24 05:56 04/08/24 22:12 04/08/24 17:21 Range/Units White Blood Count 15.4 #H 4.4-10.8 10^3/uL Red Blood Count 3.11 L 4.0-5.20 10^6/uL Hemoglobin 8.5 L 12.2-16.2 g/dL Hematocrit 26.9 L 36.0-46.0 % Mean Corpuscular Volume 86.6 80.0-100.0 fL Mean Corpuscular Hemoglobin 27.3 L 28.0-32.0 pg Mean Corpuscular Hemoglobin Concent 31.5 L 32.0-36.0 g/dL Red Cell Distribution Width 22.9 H 11.8-14.3 % Platelet Count 359 140-450 10^3/uL Mean Platelet Volume 6.4 L 6.9-10.8 fL Neutrophils (%) (Auto) 85.2 H 37.0-80.0 % Lymphocytes (%) (Auto) 6.0 L 10.0-50.0 % Monocytes (%) (Auto) 8.3 0.0-12.0 % Eosinophils (%) (Auto) 0.1 0.0-7.0 % Basophils (%) (Auto) 0.4 0.0-2.0 % Neutrophils # (Auto) 13.1 H 1.6-8.6 10 ^3/uL Lymphocytes # (Auto) 0.9 0.4-5.4 10 ^3/uL Monocytes # (Auto) 1.3 0-1.3 10 ^3/uL Eosinophils # (Auto) 0 0-0.8 10 ^3/uL Basophils # (Auto) 0.1 0-0.2 10 ^3/uL Nucleated Red Blood Cells 0.0 % Sodium Level 137 136-145 mmol/L Potassium Level 5.2 H 3.5-5.1 mmol/L Chloride Level 112 H 98-107 mmol/L Carbon Dioxide Level 17 L 20-31 mmol/L Anion Gap 8 5-15 Blood Urea Nitrogen 15 9-23 mg/dL Creatinine 1.24 H 0.550-1.02 mg/dL Glomerular Filtration Rate Calc 54 >90 mL/min BUN/Creatinine Ratio 12.1 10.0-20.0 Serum Glucose 127 H 74-106 mg/dL Calcium Level 9.1 8.7-10.4 mg/dL Magnesium Level 1.8 1.6-2.6 mg/dL POC Glucose 139 H 169 H 70-106 mg/dl D-Dimer, Quantitative 3.04 H 0.0-0.49 mg/L FEU Test 04/08/24 17:07 04/08/24 11:32 04/08/24 06:01 04/08/24 05:06 Range/Units POC Glucose 184 H 169 H 103 70-106 mg/dl White Blood Count 10.2 4.4-10.8 10^3/uL Red Blood Count 3.32 L 4.0-5.20 10^6/uL Hemoglobin 9.1 L 12.2-16.2 g/dL Hematocrit 29.0 L 36.0-46.0 % Mean Corpuscular Volume 87.4 80.0-100.0 fL Mean Corpuscular Hemoglobin 27.4 L 28.0-32.0 pg Mean Corpuscular Hemoglobin Concent 31.3 L 32.0-36.0 g/dL Red Cell Distribution Width 22.7 H 11.8-14.3 % Platelet Count 379 140-450 10^3/uL Mean Platelet Volume 6.9 6.9-10.8 fL Neutrophils (%) (Auto) 78.0 37.0-80.0 % Lymphocytes (%) (Auto) 10.2 10.0-50.0 % Monocytes (%) (Auto) 8.2 0.0-12.0 % Eosinophils (%) (Auto) 3.3 0.0-7.0 % Basophils (%) (Auto) 0.3 0.0-2.0 % Neutrophils # (Auto) 8.0 1.6-8.6 10 ^3/uL Lymphocytes # (Auto) 1.0 0.4-5.4 10 ^3/uL Monocytes # (Auto) 0.8 0-1.3 10 ^3/uL Eosinophils # (Auto) 0.3 0-0.8 10 ^3/uL Basophils # (Auto) 0 0-0.2 10 ^3/uL Nucleated Red Blood Cells 0.1 % Sodium Level 138 136-145 mmol/L Potassium Level 5.2 H 3.5-5.1 mmol/L Chloride Level 111 H 98-107 mmol/L Carbon Dioxide Level 19 L 20-31 mmol/L Anion Gap 8 5-15 Blood Urea Nitrogen 13 9-23 mg/dL Creatinine 1.04 H 0.550-1.02 mg/dL Glomerular Filtration Rate Calc 66 >90 mL/min BUN/Creatinine Ratio 12.5 10.0-20.0 Serum Glucose 86 74-106 mg/dL Hemoglobin A1c 5.8 H <5.7 % A1C Calcium Level 9.6 8.7-10.4 mg/dL Magnesium Level 1.2 L 1.6-2.6 mg/dL Total Bilirubin 0.3 0.2-1.0 mg/dL Aspartate Amino Transferase (AST) 119 H 13-40 U/L Alanine Aminotransferase (ALT) 16 7-40 U/L Alkaline Phosphatase 352 H 46-116 U/L Total Protein 6.5 5.7-8.2 g/dL Albumin 3.0 L 3.2-4.8 g/dL Triglycerides Level 169 H < 150 mg/dL Cholesterol Level 123 < 200 mg/dL LDL Cholesterol 77 < 100 mg/dL HDL Cholesterol 19 L 40-59 mg/dL Thyroid Stimulating Hormone (TSH) 3.18 0.55-4.78 uIU/mL Test 04/07/24 21:09 04/07/24 18:01 04/07/24 15:48 04/07/24 12:01 Range/Units POC Glucose 152 H 139 H 127 H 70-106 mg/dl Urine Color Yellow Yellow Urine Clarity Turbid H Clear Urine pH 5.0 5.0-9.0 Urine Specific Ennice 1.015 1.001-1.035 Urine Protein Trace H Negative Urine Ketones Negative Negative Urine Blood Negative Negative /uL Urine Nitrite Negative Negative Urine Bilirubin Negative Negative Urine Urobilinogen Normal Negative mg/dL Urine Leukocyte Esterase Negative Negative /uL Urine RBC <1 0 - 4 /hpf Urine Microscopic WBC 2 0-5 /HPF Urine Squamous Epithelial Cells None seen <5 /hpf Urine Bacteria Few H None Seen /hpf Urine Granular Casts Few 0 /lpf Urine Mucus Few None Seen Urine Yeast (Budding) Occasional None Seen /hpf Urine Glucose Normal Normal mg/dL Test 04/07/24 05:29 04/06/24 22:22 04/06/24 14:01 04/06/24 11:25 Range/Units White Blood Count 10.2 9.7 4.4-10.8 10^3/uL Red Blood Count 3.21 L 3.30 L 4.0-5.20 10^6/uL Hemoglobin 8.9 L 9.1 L 12.2-16.2 g/dL Hematocrit 27.7 L 28.3 L 36.0-46.0 % Mean Corpuscular Volume 86.2 85.8 80.0-100.0 fL Mean Corpuscular Hemoglobin 27.9 L 27.6 L 28.0-32.0 pg Mean Corpuscular Hemoglobin Concent 32.3 32.2 32.0-36.0 g/dL Red Cell Distribution Width 22.7 H 22.9 H 11.8-14.3 % Platelet Count 360 361 140-450 10^3/uL Mean Platelet Volume 6.5 L 7.0 6.9-10.8 fL Neutrophils (%) (Auto) 80.1 H 84.7 H 37.0-80.0 % Lymphocytes (%) (Auto) 9.2 L 7.9 L 10.0-50.0 % Monocytes (%) (Auto) 7.1 5.7 0.0-12.0 % Eosinophils (%) (Auto) 3.1 1.5 0.0-7.0 % Basophils (%) (Auto) 0.5 0.2 0.0-2.0 % Neutrophils # (Auto) 8.2 8.2 1.6-8.6 10 ^3/uL Lymphocytes # (Auto) 0.9 0.8 0.4-5.4 10 ^3/uL Monocytes # (Auto) 0.7 0.6 0-1.3 10 ^3/uL Eosinophils # (Auto) 0.3 0.1 0-0.8 10 ^3/uL Basophils # (Auto) 0 0 0-0.2 10 ^3/uL Nucleated Red Blood Cells 0.1 0.0 % Sodium Level 140 139 136-145 mmol/L Potassium Level 4.9 5.0 3.5-5.1 mmol/L Chloride Level 111 H 110 H 98-107 mmol/L Carbon Dioxide Level 19 L 19 L 20-31 mmol/L Anion Gap 10 10 5-15 Blood Urea Nitrogen 12 16 9-23 mg/dL Creatinine 0.80 1.04 H 0.550-1.02 mg/dL Glomerular Filtration Rate Calc 91 66 >90 mL/min BUN/Creatinine Ratio 15.0 15.4 10.0-20.0 Serum Glucose 90 174 H 74-106 mg/dL Calcium Level 9.3 9.7 8.7-10.4 mg/dL Total Bilirubin 0.5 0.6 0.2-1.0 mg/dL Aspartate Amino Transferase (AST) 60 H 60 H 13-40 U/L Alanine Aminotransferase (ALT) 11 14 7-40 U/L Alkaline Phosphatase 321 H 355 H 46-116 U/L B-Type Natriuretic Peptide 74.30 0-100 pg/mL Total Protein 6.3 7.2 5.7-8.2 g/dL Albumin 2.9 L 3.4 3.2-4.8 g/dL POC Glucose 95 70-106 mg/dl Lactic Acid Level 2.2 *H 3.2 *H 0.4-2.0 mmol/L Platelet Estimate Adequate Anisocytosis (manual) Moderate Microbiology Date/Time Source Procedure Growth Status 04/07/24 17:10 Nose MRSA Screen - Final Methicillin Resistant S.aureus Complete 04/07/24 15:48 Urine - Catheterized Urine Culture - Final Complete 04/06/24 11:25 Blood Blood Culture - Final NO GROWTH AFTER 5 DAYS OF INCUBATION. Complete Assessment acute kidney injury Baseline renal function is normal Hyperkalemia Non-anion gap metabolic acidosis Metastatic cancer sepsis due to PNA hold losartan medical treatment for elevated potassium reduce potassium diet IVF reduce rate due to pleural effusions noted on imaging Plan discussed with: Other SHIN PANDA MD Apr 14, 2024 12:08
[2024-04-14 12:09] LABS: Blood Urea Nitrogen 31 mg/dL (9-23); Carbon Dioxide 13 mmol/L (20-31); Chloride 113 mmol/L (98-107); Glucose 140 mg/dL (74-106); Sodium 135 mmol/L (136-145)
[2024-04-14 12:12] LABS: Potassium 5.8 mmol/L (3.5-5.1)
[2024-04-14] MEDS: LACTULOSE 20Gm/30ML SOLN PO ONE (12:21)
[2024-04-14] MEDS: ALBUTEROL SULF 2.5 MG/0.5ML(0.5%) NEB SOLN ONE (12:36)
[2024-04-14] MEDS: ALBUTEROL SULF 2.5 MG/0.5ML(0.5%) NEB SOLN NEB ONE (12:37)
[2024-04-14] MEDS: DEXTROSE (50%) 50ML SYRG IV ONE (13:50)
[2024-04-14] MEDS: SODIUM ZIRCONIUM CYCL 10 GM PAK PO SCH (13:50)
[2024-04-14] MEDS: SODIUM BICARB 8.4% 50Meq/50ml SYR Vial IV ONE (13:51)
[2024-04-14] MEDS: InsuLIN REG 1unit/0.01ml Soln (100units/ml) IV ONE (14:01)
[2024-04-14] MEDS: SODIUM ZIRCONIUM CYCL 10 GM PAK PO ONE (15:30)
--- NOTE | 2024-04-14 17:43 | DVH ---
EXAM: XR Chest, 1 View CLINICAL INDICATION: r/o aspiration TECHNIQUE: Frontal view of the chest. COMPARISON: XY CHEST XRAY 1 VIEW on DOS: 04/11/24, XY CHEST PORTABLE on DOS: 04/10/24, XY CHEST ROSA M BLE on DOS: 04/08/24, XY CHEST PORTABLE on DOS: 04/06/24, XY CHEST XRAY 1 VIEW on DOS: 10/20/23 FINDINGS: LUNGS AND PLEURAL SPACES: Pulmonary congestion and edema. Pneumonia cannot be excluded. Right pleu ral effusion. Right basilar. No pneumothorax. HEART: Unremarkable. No cardiomegaly. MEDIASTINUM: Unremarkable. Normal mediastinal contour. BONES/JOINTS: Unremarkable. No acute fracture. OTHER FINDINGS: . . . .. IMPRESSION: 1. Pulmonary congestion and edema. Pneumonia cannot be excluded. 2. Right pleural effusion.
--- NOTE | 2024-04-14 23:04 | DVHPN2 ---
Progress Note - Dictate Date Seen: Apr 14, 2024 Medical Necessity Reason Pt with a Central, PICC or Fol: No Subjective Patient seen and examined at bedside. Remains on supplemental oxygen Overnight events reviewed. vital signs Vital Sign Date Time Temp Pulse Resp B/P (MAP) Pulse Ox O2 Delivery O2 Flow Rate FiO2 04/14/24 21:55 99 17 100 04/14/24 20:29 98.2 102/79 (87) 98.2 04/14/24 18:00 Nasal Cannula* 2 28 Total Intake and Output 04/13/24 04/13/24 04/14/24 15:00 23:00 07:00 Intake Total 900 ml 848 ml 136 ml Balance 900 ml 848 ml 136 ml medications Current Medications Medications Dose Ordered Sig/Flaca Route Start Time Stop Time Status Last Admin Dose Admin Azithromycin 250 ml @ 125 mls/hr DAILY IV 04/07/24 10:00 04/14/24 10:05 125 MLS/HR Diagnostic Test (Pha) 1 strip ACHS 04/06/24 22:00 04/14/24 22:07 1 STRIP Insulin Human Regular ACHS SC 04/06/24 22:00 04/14/24 12:20 3 UNITS Dextrose 50 ml UD PRN IV 04/06/24 19:00 Ondansetron HCl 4 mg Q4HP PRN IV 04/06/24 19:00 Acetaminophen 650 mg Q6HP PRN PO 04/06/24 19:00 04/14/24 18:00 650 MG Nitroglycerin 0.4 mg Q5MINP PRN SL 04/06/24 19:00 Morphine Sulfate 2 mg Q30M PRN IV 04/06/24 19:00 Midodrine 10 mg TID@0600,1200,1800 PO 04/07/24 06:00 04/14/24 18:00 10 MG Enoxaparin Sodium 50 mg Q12HR SC 04/08/24 22:00 04/14/24 22:17 50 MG Albuterol 2.5 mg Q4HPRN NEB 04/10/24 14:00 04/14/24 21:53 2.5 MG Pantoprazole Sodium 40 mg HS IV 04/12/24 22:00 04/14/24 22:16 40 MG Meropenem 50 ml @ 17 mls/hr Q12HR IV 04/11/24 22:00 04/14/24 22:16 17 MLS/HR Sodium Chloride 1,000 ml @ 70 mls/hr [id number] IV 04/14/24 12:00 04/14/24 12:00 70 MLS/HR Zirconium Oxide 10 gm TID PO 04/14/24 14:00 04/16/24 13:59 04/14/24 22:17 10 GM objective Gen.: Patient lying in bed in no apparent distress. On supplemental oxygen. Head: Normocephalic, atraumatic. Eyes: EOMI/PERRLA. Ears: Normal hearing. Normal anatomy. Neck/trachea: Trachea midline, supple. Nose: Normal external anatomy. Mouth: Moist mucous membranes. Chest: Decreased air entry bilaterally. Coarse breath sounds. Bilateral wheezing. No rhonchi. Cardiovascular: Positive S1, positive S2. Regular rate and rhythm. Abdomen: Positive bowel sounds in all 4 quadrants. Soft, non-tender, non- distended. : Deferred. Rectal: Deferred. Skin: Warm, dry. Intact. Extremities: 2+ radial pulses bilaterally. No lower extremity edema. Neuro: Awake, alert, oriented x3. No gross motor or sensory deficits. Cranial nerves II through XII intact. Gait not assessed. laboratory and microbiology Laboratory Tests 04/14/24 10:25 04/13/24 11:19 Test 04/14/24 10:25 Range/Units Serum Glucose 140 H 74-106 mg/dL Assessment/Plan Impression: Acute hypoxic respiratory failure Dependence on supplemental oxygen Pneumonia, likely gram negative Aspiration pneumonia Down syndrome Atelectasis Legal blindness Deafness Events: Remains on supplemental oxygen, 3 LPM NC Taper O2 as tolerated Chest x-ray reviewed, demonstrates pulmonary congestion and edema. Pneumonia cannot be excluded. Right pleural effusion.. Continue antibiotics Incentive spirometry Antitussive for cough Continue bronchodilators/CPT. Head of bed elevation Aspiration precautions On IV fluids with NS at 70 ml/hr. Protonix QD Monitor renal function Monitor electrolytes. Supplement as necessary. Lokelma for hyperkalemia Sodium is 135 Labs and imaging reviewed. Rest of plan as noted below. Plan: Supplemental oxygen Titrate to keep O2 sats above 92%. Head of bed elevation Aspiration precautions Continue antibiotics Incentive spirometry Send sputum cultures if able to produce Midodrine PO TID Accu-Cheks, ISS. Monitor renal function. Monitor electrolytes. Supplement as necessary. Monitor ins and outs. DVT prophylaxis- Lovenox. Patient is DNR. Prognosis: Guarded given patient's multiple co-morbidities. Rest of plan per hospitalist and other consultants. Thank you, Dr. Aldridge, for allowing me to participate in this patient's care. Further recommendations will depend on the patient's clinical course. Please do not hesitate to contact me if you have any questions or concerns. This medical document was created using an electronic medical record system with [employer] dictation system. Although these documentations are being carefully reviewed, there may still be some phonetic and typographical changes. The errors are purely typographical, due to imperfection on the software program, and do not reflect any compromise in the patient's medical care. Dietary Evaluation Review Comments: 1. Encourage continued good oral intakes of >/=75% of meals 2. Continue texture-modified diet as medically appropriate Expected Outcomes/Goals: Weight maintenance, maintain skin integrity Plan discussed with: Patient, Other (GRICEL Crabtree) MALACHI WAITE MD Apr 14, 2024 23:04
[2024-04-15] VITALS (14 sets, daily range): BP systolic 81–143; BP diastolic 43–62; PULSE 78–120; RESP 12–22; TEMP 97.6–98.1; O2SAT 94–100
[2024-04-15] MEDS: KETOROLAC TROMETH 30 MG/ML 1ML VIAL IV ONE (02:37)
[2024-04-15] MEDS: SODIUM BICARB 50mEq/50ml Vial 150 ML in D5W 5% 1,000 ML IV ONE (09:45)
[2024-04-15 10:43] LABS: Calcium 9.6 mg/dL (8.7-10.4); Sodium 137 mmol/L (136-145)
[2024-04-15 10:44] LABS: Anion Gap 9 (5-15)
[2024-04-15 10:49] LABS: BUN/Creatinine Ratio 15.2 (10.0-20.0)
[2024-04-15 10:50] LABS: Blood Urea Nitrogen 35 mg/dL (9-23); Carbon Dioxide 16 mmol/L (20-31); Chloride 112 mmol/L (98-107); Glucose 136 mg/dL (74-106); Potassium 5.5 mmol/L (3.5-5.1)
--- NOTE | 2024-04-15 10:58 | DVHPN2 ---
Subjective The patient is stable She is on 3 L nasal cannula She is in mild respiratory distress Blood pressure runs in the ED to 90 systolic Changes from previous H/P or p: Changes Objective Vitals Vital Signs Date Time Temp Pulse Resp B/P (MAP) Pulse Ox O2 Delivery O2 Flow Rate FiO2 04/15/24 10:24 95 16 100 04/15/24 10:18 Nasal Cannula 1.0 04/15/24 10:18 24 04/15/24 04:14 98.1 81/57 (65) 98.1 Intake/Output Intake and Output 04/15/24 07:00 Intake Total 2100 ml Output Total 195 ml Balance 1905 ml Intake Oral 490 ml IV Total 1610 ml Output Urine Total 195 ml # Bowel Movements 5 General Appearance: Alert, Other (Disoriented to place and time) Lungs: Other (Bilateral rhonchi) Cardiovascular: Regular rate, Normal S1, Normal S2, No murmurs Abdomen: Normal bowel sounds, Soft, No tenderness Extremities: No edema Medications Current Medications Medications Dose Ordered Sig/Flaca Route Start Time Stop Time Status Last Admin Dose Admin Azithromycin 250 ml @ 125 mls/hr DAILY IV 04/07/24 10:00 04/15/24 08:11 125 MLS/HR Diagnostic Test (Pha) 1 strip ACHS 04/06/24 22:00 04/15/24 10:14 1 STRIP Insulin Human Regular ACHS SC 04/06/24 22:00 04/14/24 12:20 3 UNITS Dextrose 50 ml UD PRN IV 04/06/24 19:00 Ondansetron HCl 4 mg Q4HP PRN IV 04/06/24 19:00 Acetaminophen 650 mg Q6HP PRN PO 04/06/24 19:00 04/14/24 18:00 650 MG Nitroglycerin 0.4 mg Q5MINP PRN SL 04/06/24 19:00 Morphine Sulfate 2 mg Q30M PRN IV 04/06/24 19:00 Midodrine 10 mg TID@0600,1200,1800 PO 04/07/24 06:00 04/15/24 06:24 10 MG Enoxaparin Sodium 50 mg Q12HR SC 04/08/24 22:00 04/15/24 08:11 50 MG Albuterol 2.5 mg Q4HPRN NEB 04/10/24 14:00 04/15/24 10:18 2.5 MG Pantoprazole Sodium 40 mg HS IV 04/12/24 22:00 04/14/24 22:16 40 MG Meropenem 50 ml @ 17 mls/hr Q12HR IV 04/11/24 22:00 04/14/24 22:16 17 MLS/HR Zirconium Oxide 10 gm TID PO 04/14/24 14:00 04/16/24 13:59 04/15/24 06:25 10 GM Laboratory Results Laboratory Tests 04/13/24 11:19 04/15/24 09:50 Chemistry Test 04/15/24 09:50 Calcium Level 9.6 mg/dL (8.7-10.4) Urinalysis Test 04/07/24 15:48 Urine Color Yellow (Yellow) Urine Clarity Turbid (Clear) H Urine pH 5.0 (5.0-9.0) Urine Specific [place] 1.015 (1.001-1.035) Urine Protein Trace (Negative) H Urine Ketones Negative (Negative) Urine Blood Negative /uL (Negative) Urine Nitrite Negative (Negative) Urine Bilirubin Negative (Negative) Urine Urobilinogen Normal mg/dL (Negative) Urine Leukocyte Esterase Negative /uL (Negative) Urine RBC <1 /hpf (0 - 4) Urine Microscopic WBC 2 /HPF (0-5) Urine Squamous Epithelial Cells None seen /hpf (<5) Urine Bacteria Few /hpf (None Seen) H Urine Granular Casts Few /lpf (0) Urine Mucus Few (None Seen) Urine Yeast (Budding) Occasional /hpf (None Urine Glucose Normal mg/dL (Normal) Microbiology Microbiology Date/Time Source Procedure Growth Status 04/07/24 17:10 Nose MRSA Screen - Final Methicillin Resistant S.aureus Complete 04/07/24 15:48 Urine - Catheterized Urine Culture - Final Complete 04/06/24 11:25 Blood Blood Culture - Final NO GROWTH AFTER 5 DAYS OF INCUBATION. Complete Assessment/Plan Assessment/Plan Sepsis Metabolic encephalopathy Rule out UTI Type 2 diabetic Colon cancer Possible underlying pneumonia Acute kidney injury hemodynamically mediated Recent diagnosis of colon cancer metastatic to the liver according to her father Lactic acidosis Chronic anemia Hypomagnesemia Plan 04/07/2024: Broad-spectrum antibiotics Get a UA and urine culture Blood culture Discussed with the father at the bedside DNR Advance directives discussed for 15 minutes 04/08/2024: Sepsis with tachycardia: Give a bolus of IV fluids 500 mL normal saline Hypomagnesemia: Replace IV magnesium Sepsis: Continue IV antibiotics Dehydration: Start IV fluids Hyperkalemia: IV fluids Pneumonia: Rocephin and Zithromax 04/09/2024: Sinus tachycardia: Continue IV fluids and IV antibiotics UTI Pneumonia: Continue Zithromax and Rocephin Right pleural effusion: Consult pulmonology for thoracentesis MRSA in the nostrils: Bactroban ointment Hypomagnesemia: Replace IV Colon cancer Type 2 diabetes Cerebral palsy 04/10/2024: Repeat chest x-ray Antibiotics to meropenem IV and Zithromax Pulmonary consultation Continue IV fluids normal saline Vasopressors as needed Hyperkalemia: Continue IV fluids JONNA due to hemodynamically mediated: Continue IV fluids Discussed with the father at the bedside DNR Pulmonary consult obtained, Dr. Martinez recommended a bronchoscopy but the father declined at this point Continue medical management 04/11/2024: Continue IV antibiotics meropenem and Zithromax Continue IV fluids Oxygen as needed Patient is off vasopressors now, if she stays off the pressors for few more hours then we can downgrade to telemetry DNR Acute kidney injury: Continue IV fluids Hyperkalemia: Continue IV fluids, Lokelma, improved down to 5.0 now 04/12/2024: Hyperkalemia: Continue IV fluids Pneumonia: Continue IV antibiotics Mucus plugs: Continue Mucomyst med nebs Med neb treatments Oxygen as needed Midodrine DNR Watch closely 04/13/2024: Continue the current regimen of IV antibiotics Oxygen as needed Monitor closely DNR 04/14/2024: Continue IV antibiotics O2 DNR JONNA: Continue IV fluids, Check the labs K+ level is pending Give Lactulose MRSA nares 04/15/2024: Pneumonia: Zithromax and meropenem Right pleural effusion: We will discuss with Pulmonary Medicine JONNA: Nephrology consult, discontinue losartan Hyperkalemia: Hypotension: Discontinue losartan DNR Plan discussed with: Patient, Other My Orders Orders - VEENA CLEMENTS MD Procedure Category Date Status Time Chest Portable XY 04/14/24 Resulted 15:33 * Swallow Request ST 04/14/24 Transmitted 15:33 Date of Service: Apr 15, 2024 Billing Provider: VEENA CLEMENTS MD Common Visit Codes: [id number] INP/OBS CARE(HIGH) VEENA CLEMENTS MD Apr 15, 2024 10:58
--- NOTE | 2024-04-15 18:13 | DVHPN2 ---
Progress Note Date Seen: Apr 15, 2024 Medical Necessity Reason Pt with a Central, PICC or Fol: No Subjective Patient reports: Other Review of Systems: Deferred Objective vital signs Vital Sign Date Time Temp Pulse Resp B/P (MAP) Pulse Ox O2 Delivery O2 Flow Rate FiO2 04/15/24 13:00 97.8 103 18 95/57 (70) 99 97.8 04/15/24 10:18 Nasal Cannula 1.0 04/15/24 10:18 24 Total Intake and Output 04/14/24 04/14/24 04/15/24 15:00 23:00 07:00 Intake Total 1300 ml 500 ml 300 ml Output Total 100 ml 95 ml Balance 1300 ml 400 ml 205 ml medications Current Medications Medications Dose Ordered Sig/Flaca Route Start Time Stop Time Status Last Admin Dose Admin Azithromycin 250 ml @ 125 mls/hr DAILY IV 04/07/24 10:00 04/15/24 08:11 125 MLS/HR Diagnostic Test (Pha) 1 strip ACHS 04/06/24 22:00 04/15/24 10:14 1 STRIP Insulin Human Regular ACHS SC 04/06/24 22:00 04/14/24 12:20 3 UNITS Dextrose 50 ml UD PRN IV 04/06/24 19:00 Ondansetron HCl 4 mg Q4HP PRN IV 04/06/24 19:00 Acetaminophen 650 mg Q6HP PRN PO 04/06/24 19:00 04/15/24 17:28 650 MG Nitroglycerin 0.4 mg Q5MINP PRN SL 04/06/24 19:00 Morphine Sulfate 2 mg Q30M PRN IV 04/06/24 19:00 Midodrine 10 mg TID@0600,1200,1800 PO 04/07/24 06:00 04/15/24 16:42 10 MG Enoxaparin Sodium 50 mg Q12HR SC 04/08/24 22:00 04/15/24 08:11 50 MG Albuterol 2.5 mg Q4HPRN NEB 04/10/24 14:00 04/15/24 10:18 2.5 MG Pantoprazole Sodium 40 mg HS IV 04/12/24 22:00 04/14/24 22:16 40 MG Meropenem 50 ml @ 17 mls/hr Q12HR IV 04/11/24 22:00 04/14/24 22:16 17 MLS/HR Zirconium Oxide 10 gm TID PO 04/14/24 14:00 04/16/24 13:59 04/15/24 14:00 10 GM laboratory and microbiology Laboratory Tests 04/15/24 09:50 04/13/24 11:19 Test 04/15/24 09:50 Range/Units Serum Glucose 136 H 74-106 mg/dL Microbiology Date/Time Source Procedure Growth Status 04/07/24 17:10 Nose MRSA Screen - Final Methicillin Resistant S.aureus Complete 04/07/24 15:48 Urine - Catheterized Urine Culture - Final Complete 04/06/24 11:25 Blood Blood Culture - Final NO GROWTH AFTER 5 DAYS OF INCUBATION. Complete Problem List/Assessment/Plan Problem List/Assessment/Plan acute kidney injury Baseline renal function is normal Hyperkalemia Non-anion gap metabolic acidosis Metastatic cancer sepsis due to PNA recs bicarb drip 1 L monitor Plan discussed with: Other My Orders My Orders Orders - REENA KUMAR MD Procedure Category Date Status Time Sodium Bicarb PHA 04/15/24 In Process 50meq/50ml Vial 09:45 Dietary Evaluation Review Comments: 1. Encourage continued good oral intakes of >/=75% of meals 2. Continue texture-modified diet as medically appropriate Expected Outcomes/Goals: Weight maintenance, maintain skin integrity REENA KUMAR MD Apr 15, 2024 18:13
[2024-04-15 20:19] LABS: Base Excess -12.5 mmol/L (-2.0-3.0)
[2024-04-15] MEDS: SODIUM BICARB 8.4% 50Meq/50ml SYR Vial IV ONE (20:23)
--- NOTE | 2024-04-15 21:45 | DVHPN2 ---
Progress Note - Dictate Date Seen: Apr 15, 2024 Medical Necessity Reason Pt with a Central, PICC or Fol: Yes The following are medically ne: Wheatley Catheter Reason for wheatley catheter: Strict I&O Subjective Patient seen and examined at bedside. Remains on supplemental oxygen Overnight events reviewed. vital signs Vital Sign Date Time Temp Pulse Resp B/P (MAP) Pulse Ox O2 Delivery O2 Flow Rate FiO2 04/15/24 20:41 98.0 78 16 81/43 (56) 97 98.0 04/15/24 10:18 Nasal Cannula 1.0 04/15/24 10:18 24 Total Intake and Output 04/14/24 04/14/24 04/15/24 15:00 23:00 07:00 Intake Total 1300 ml 500 ml 300 ml Output Total 100 ml 95 ml Balance 1300 ml 400 ml 205 ml medications Current Medications Medications Dose Ordered Sig/Flaca Route Start Time Stop Time Status Last Admin Dose Admin Azithromycin 250 ml @ 125 mls/hr DAILY IV 04/07/24 10:00 04/15/24 08:11 125 MLS/HR Diagnostic Test (Pha) 1 strip ACHS 04/06/24 22:00 04/15/24 17:00 1 STRIP Insulin Human Regular ACHS SC 04/06/24 22:00 04/14/24 12:20 3 UNITS Dextrose 50 ml UD PRN IV 04/06/24 19:00 Ondansetron HCl 4 mg Q4HP PRN IV 04/06/24 19:00 Acetaminophen 650 mg Q6HP PRN PO 04/06/24 19:00 04/15/24 17:28 650 MG Nitroglycerin 0.4 mg Q5MINP PRN SL 04/06/24 19:00 Morphine Sulfate 2 mg Q30M PRN IV 04/06/24 19:00 Midodrine 10 mg TID@0600,1200,1800 PO 04/07/24 06:00 04/15/24 16:42 10 MG Enoxaparin Sodium 50 mg Q12HR SC 04/08/24 22:00 04/15/24 08:11 50 MG Albuterol 2.5 mg Q4HPRN NEB 04/10/24 14:00 04/15/24 18:22 2.5 MG Pantoprazole Sodium 40 mg HS IV 04/12/24 22:00 04/14/24 22:16 40 MG Meropenem 50 ml @ 17 mls/hr Q12HR IV 04/11/24 22:00 04/14/24 22:16 17 MLS/HR Zirconium Oxide 10 gm TID PO 04/14/24 14:00 04/16/24 13:59 04/15/24 14:00 10 GM objective Gen.: Patient lying in bed in no apparent distress. On supplemental oxygen. Head: Normocephalic, atraumatic. Eyes: EOMI/PERRLA. Ears: Normal hearing. Normal anatomy. Neck/trachea: Trachea midline, supple. Nose: Normal external anatomy. Mouth: Moist mucous membranes. Chest: Decreased air entry bilaterally. Coarse breath sounds. Bilateral wheezing. No rhonchi. Cardiovascular: Positive S1, positive S2. Regular rate and rhythm. Abdomen: Positive bowel sounds in all 4 quadrants. Soft, non-tender, non- distended. : Deferred. Rectal: Deferred. Skin: Warm, dry. Intact. Extremities: 2+ radial pulses bilaterally. No lower extremity edema. Neuro: Awake, alert, oriented x3. No gross motor or sensory deficits. Cranial nerves II through XII intact. Gait not assessed. laboratory and microbiology Laboratory Tests 04/15/24 09:50 04/13/24 11:19 Test 04/15/24 09:50 Range/Units Serum Glucose 136 H 74-106 mg/dL Assessment/Plan Impression: Acute hypoxic respiratory failure Dependence on supplemental oxygen Pneumonia, likely gram negative Aspiration pneumonia Down syndrome Atelectasis Legal blindness Deafness Events: Rapid response was called. Patient with hypotension - gave 500 mL bolus. Remains on supplemental oxygen, 1 LPM NC Taper O2 as tolerated Continue bronchodilators/CPT. Continue antibiotics Incentive spirometry Antitussive for cough On midodrine Monitor hemodynamics closely. On therapeutic Lovenox Head of bed elevation Aspiration precautions On IV fluids with NS at 70 ml/hr. Protonix for GI prophylaxis. Monitor renal function Monitor electrolytes. Supplement as necessary. Lokelma for hyperkalemia Sodium is 137 Labs and imaging reviewed. Rest of plan as noted below. Plan: Supplemental oxygen Titrate to keep O2 sats above 92%. Head of bed elevation Aspiration precautions Continue antibiotics Incentive spirometry Send sputum cultures if able to produce Midodrine PO TID Accu-Cheks, ISS. Monitor renal function. Monitor electrolytes. Supplement as necessary. Monitor ins and outs. DVT prophylaxis- Lovenox. Patient is DNR. Prognosis: Guarded given patient's multiple co-morbidities. Condition: Critical Rest of plan per hospitalist and other consultants. A total of 35 minutes of critical care time was spent reviewing the patient record, examining the patient, making a diagnostic and therapeutic plan, discussing this plan with the medical personnel, following up on diagnostic studies and following the patient for clinical stability excluding any and all procedures. At least 50% of this time was spent in direct, [id number] contact. Thank you, Dr. Aldridge, for allowing me to participate in this patient's care. Further recommendations will depend on the patient's clinical course. Please do not hesitate to contact me if you have any questions or concerns. This medical document was created using an electronic medical record system with [employer] dictation system. Although these documentations are being carefully reviewed, there may still be some phonetic and typographical changes. The errors are purely typographical, due to imperfection on the software program, and do not reflect any compromise in the patient's medical care. Dietary Evaluation Review Comments: 1. Encourage continued good oral intakes of >/=75% of meals 2. Continue texture-modified diet as medically appropriate Expected Outcomes/Goals: Weight maintenance, maintain skin integrity Plan discussed with: Patient, Other (RN Elizabeth) Critical Care Time(min): 35 MALACHI WAITE MD Apr 15, 2024 21:45
[2024-04-16] VITALS (77 sets, daily range): BP systolic 77–148; BP diastolic 33–116; PULSE 87–122; RESP 10–41; TEMP 96.5–97.8; O2SAT 94–100
[2024-04-16] MEDS: ALBUTEROL SULF 2.5 MG/0.5ML(0.5%) NEB SOLN NEB SCH (02:48)
[2024-04-16] MEDS: LORazepam 2MG/ML-1ML VIAL ONE ×2 (06:15→06:38)
[2024-04-16 06:40] LABS: Base Excess -13.9 mmol/L (-2.0-3.0)
[2024-04-16] MEDS: NOREPINEPHRINE 8 MG/250ML KIT 250 ML IV ONE (07:01)
[2024-04-16] MEDS: levETIRAcetam 1000 mg/100ml 100 ML IV ONE ×2 (07:07→16:00)
[2024-04-16] MEDS: NOREPINEPHRINE 8 MG/250ML KIT 250 ML IV SCH (07:30)
[2024-04-16] MEDS: VASOPRESSIN 20 UNITS in SODIUM CHL 0.9% 99 ML IV SCH (08:00)
[2024-04-16] MEDS ORDERED: LORazepam 2MG/ML-1ML VIAL IV PRN (08:00)
--- NOTE | 2024-04-16 08:05 | RESUS ---
CODE ASSIST ASSESSSMENT Situation Situation comment: After giving Patient morning medication. Patient start to go into seizure like activity and became unresponsive. Code assist called. Background Background: 48-year-old female with past medical history of colon cancer, diabetes mellitus, hypertension, cerebral palsy,bed bound, legally blind and deaf, presents to the ED via EMS for an evaluation of hypotension today. EMS reports patient is coming from a boarding care where she resides, state staff noticed hypotensive episode at 70 systolic with a heart rate of 130. On scene, EMS repeated vitals showing a blood pressure of 93 and 101 systolic with heart rate ranging in between 120-140 and SPO2 at 89-90%. Patient was placed on 2 liters oxygen via NC bringing saturation levels back up to 98%. Patient has a history of similar episode back in December 2023 which she was seen at this ED for and was diagnosed with sepsis from Urine routine showing evidence of UTI. Blood culture revealed E Coli ESBL. Chest x-ray showed possibility of aspiration pneumonia. PT WAS ADMITTED ON 04/06/24 Assessment Temperature (Fahrenheit): 97.8 Blood Pressure Systolic: 105 Blood Pressure Diastolic: 56 Respiratory Rate: 14 O2 Sat by Pulse Oximetry: 97 Assessment comment: ON ARRIVAL PT HAVING A SEIZURE, ON O2 100% NR. Recommendations/Interventions Medications and Responses : Medication Time: 06:10 ADULT Medications Given: Ativan 1 mg IV MRx1 Route of Administration: IV Heart Rate: 126 EKG Rhythm: Sinus Tachycardia Blood Pressure Systolic: 111 Blood Pressure Diastolic: 78 Respiratory Rate: 18 O2 Sat by Pulse Oximetry: 97 Procedures: Cardiac Monitoring, Suctioned Outcome Outcome: Transfer to ICU Team Members Team Members RAPHAEL RESIDENT, GRAHAM RESIDENT, WENDI MONSALVE HS, GI [employer], BEATRICE PENN RN, MO RT, SOPHY RT WENDI HUSSEIN Apr 16, 2024 08:05
[2024-04-16 09:11] LABS: Basophils # (auto) 0 10 ^3/uL (0-0.2); Hemoglobin 8.6 g/dL (12.2-16.2); Neutrophils # (auto) 17.4 10 ^3/uL (1.6-8.6)
[2024-04-16 09:15] LABS: Eosinophils # (auto) 0.3 10 ^3/uL (0-0.8); Eosinophils % (auto) 1.6 % (0.0-7.0); Hematocrit 28.7 % (36.0-46.0); Lymphocytes # (auto) 0.7 10 ^3/uL (0.4-5.4); Lymphocytes % (auto) 3.8 % (10.0-50.0); Mean Corpuscular Hemoglobin 26.8 pg (28.0-32.0); Mean Corpuscular Hgb Conc. 30.2 g/dL (32.0-36.0); Mean Corpuscular Volume 88.9 fL (80.0-100.0); Monocytes # (auto) 0.6 10 ^3/uL (0-1.3); Monocytes % (auto) 3.2 % (0.0-12.0); Neutrophils % (auto) 91.4 % (37.0-80.0); Nucleated Red Blood Cells % 0.6 %; Platelet Count (auto) 445 10^3/uL (140-450); Red Blood Cells 3.23 10^6/uL (4.0-5.20); Red Cell Distribution Width 23.6 % (11.8-14.3)
[2024-04-16 10:09] LABS: Anion Gap 10 (5-15); BUN/Creatinine Ratio 11.9 (10.0-20.0)
[2024-04-16 10:23] LABS: Chloride 110 mmol/L (98-107); Sodium 137 mmol/L (136-145)
[2024-04-16 10:24] LABS: Alanine Aminotransferase 13 U/L (7-40); Alkaline Phosphatase 464 U/L (46-116); Aspartate Aminotransferase 87 U/L (13-40); Bilirubin, Total 0.3 mg/dL (0.2-1.0); Blood Urea Nitrogen 32 mg/dL (9-23); Calcium 9.1 mg/dL (8.7-10.4); Carbon Dioxide 17 mmol/L (20-31); Glucose 157 mg/dL (74-106); Total Protein 6.8 g/dL (5.7-8.2)
[2024-04-16 10:25] LABS: Potassium 5.8 mmol/L (3.5-5.1)
[2024-04-16] MEDS: FUROSEMIDE 40 MG/4 ML VIAL IV ONE (11:27)
[2024-04-16] MEDS: SODIUM BICARB 8.4% 50Meq/50ml SYR Vial IV ONE (11:28)
--- NOTE | 2024-04-16 14:52 | DVHPN2 ---
Subjective She became more hypoxic and hypotensive this morning On face mask O2 On Levophed drip Changes from previous H/P or p: Changes Objective Vitals Vital Signs Date Time Temp Pulse Resp B/P (MAP) Pulse Ox O2 Delivery O2 Flow Rate FiO2 04/16/24 14:00 101 04/16/24 14:00 20 100 Non-Rebreather 15 N/A 04/16/24 13:30 102/45 (64) 04/16/24 12:00 97.4 97.4 Intake/Output Intake and Output 04/16/24 07:00 Intake Total 575 ml Output Total 160 ml Balance 415 ml Intake Oral 525 ml IV Total 50 ml Output Urine Total 160 ml # Bowel Movements 3 General Appearance: Alert, Other (Disoriented to place and time) Lungs: Other (Bilateral rhonchi) Cardiovascular: Regular rate, Normal S1, Normal S2, No murmurs Abdomen: Normal bowel sounds, Soft, No tenderness Extremities: No edema Medications Current Medications Medications Dose Ordered Sig/Flaca Route Start Time Stop Time Status Last Admin Dose Admin Azithromycin 250 ml @ 125 mls/hr DAILY IV 04/07/24 10:00 04/16/24 08:17 125 MLS/HR Diagnostic Test (Pha) 1 strip ACHS 04/06/24 22:00 04/16/24 11:28 1 STRIP Insulin Human Regular ACHS SC 04/06/24 22:00 04/16/24 11:43 3 UNITS Dextrose 50 ml UD PRN IV 04/06/24 19:00 Ondansetron HCl 4 mg Q4HP PRN IV 04/06/24 19:00 Acetaminophen 650 mg Q6HP PRN PO 04/06/24 19:00 04/15/24 17:28 650 MG Nitroglycerin 0.4 mg Q5MINP PRN SL 04/06/24 19:00 Morphine Sulfate 2 mg Q30M PRN IV 04/06/24 19:00 Midodrine 10 mg TID@0600,1200,1800 PO 04/07/24 06:00 04/16/24 05:48 10 MG Enoxaparin Sodium 50 mg Q12HR SC 04/08/24 22:00 04/16/24 10:50 50 MG Pantoprazole Sodium 40 mg HS IV 04/12/24 22:00 04/15/24 21:42 40 MG Meropenem 50 ml @ 17 mls/hr Q12HR IV 04/11/24 22:00 04/16/24 11:28 17 MLS/HR Albuterol 2.5 mg Q4HR NEB 04/16/24 02:00 04/16/24 02:48 2.5 MG Vasopressin 20 units/Sodium Chloride 100 ml @ 9 mls/hr Q11H7M IV 04/16/24 08:00 Lorazepam 1 mg Q5MINP PRN IV 04/16/24 08:00 Norepinephrine Bitartrate 250 ml @ 3.75 mls/hr Q24H IV 04/16/24 08:00 04/16/24 11:01 3.75 MLS/HR Albuterol 2.5 mg Q4HPRN PRN NEB 04/16/24 08:45 Laboratory Results Laboratory Tests 04/16/24 08:46 Chemistry Test 04/16/24 08:46 Albumin 3.0 g/dL (3.2-4.8) L Calcium Level 9.1 mg/dL (8.7-10.4) Magnesium Level 2.0 mg/dL (1.6-2.6) Total Protein 6.8 g/dL (5.7-8.2) LFT Test 04/16/24 08:46 Alanine Aminotransferase (ALT) 13 U/L (7-40) Alkaline Phosphatase 464 U/L (46-116) H Aspartate Amino Transferase (AST) 87 U/L (13-40) H Total Bilirubin 0.3 mg/dL (0.2-1.0) Urinalysis Test 04/07/24 15:48 Urine Color Yellow (Yellow) Urine Clarity Turbid (Clear) H Urine pH 5.0 (5.0-9.0) Urine Specific [place] 1.015 (1.001-1.035) Urine Protein Trace (Negative) H Urine Ketones Negative (Negative) Urine Blood Negative /uL (Negative) Urine Nitrite Negative (Negative) Urine Bilirubin Negative (Negative) Urine Urobilinogen Normal mg/dL (Negative) Urine Leukocyte Esterase Negative /uL (Negative) Urine RBC <1 /hpf (0 - 4) Urine Microscopic WBC 2 /HPF (0-5) Urine Squamous Epithelial Cells None seen /hpf (<5) Urine Bacteria Few /hpf (None Seen) H Urine Granular Casts Few /lpf (0) Urine Mucus Few (None Seen) Urine Yeast (Budding) Occasional /hpf (None Urine Glucose Normal mg/dL (Normal) Blood Gas Results Test 04/15/24 19:46 04/16/24 06:32 Arterial Blood pH 7.204 (7.350-7.450) 7.004 (7.350-7.450) FiO2 % 36.0 100.0 Microbiology Microbiology Date/Time Source Procedure Growth Status 04/07/24 17:10 Nose MRSA Screen - Final Methicillin Resistant S.aureus Complete 04/07/24 15:48 Urine - Catheterized Urine Culture - Final Complete 04/06/24 11:25 Blood Blood Culture - Final NO GROWTH AFTER 5 DAYS OF INCUBATION. Complete Assessment/Plan Assessment/Plan Sepsis Metabolic encephalopathy Rule out UTI Type 2 diabetic Colon cancer Possible underlying pneumonia Acute kidney injury hemodynamically mediated Recent diagnosis of colon cancer metastatic to the liver according to her father Lactic acidosis Chronic anemia Hypomagnesemia Plan 04/07/2024: Broad-spectrum antibiotics Get a UA and urine culture Blood culture Discussed with the father at the bedside DNR Advance directives discussed for 15 minutes 04/08/2024: Sepsis with tachycardia: Give a bolus of IV fluids 500 mL normal saline Hypomagnesemia: Replace IV magnesium Sepsis: Continue IV antibiotics Dehydration: Start IV fluids Hyperkalemia: IV fluids Pneumonia: Rocephin and Zithromax 04/09/2024: Sinus tachycardia: Continue IV fluids and IV antibiotics UTI Pneumonia: Continue Zithromax and Rocephin Right pleural effusion: Consult pulmonology for thoracentesis MRSA in the nostrils: Bactroban ointment Hypomagnesemia: Replace IV Colon cancer Type 2 diabetes Cerebral palsy 04/10/2024: Repeat chest x-ray Antibiotics to meropenem IV and Zithromax Pulmonary consultation Continue IV fluids normal saline Vasopressors as needed Hyperkalemia: Continue IV fluids JONNA due to hemodynamically mediated: Continue IV fluids Discussed with the father at the bedside DNR Pulmonary consult obtained, Dr. Martinez recommended a bronchoscopy but the father declined at this point Continue medical management 04/11/2024: Continue IV antibiotics meropenem and Zithromax Continue IV fluids Oxygen as needed Patient is off vasopressors now, if she stays off the pressors for few more hours then we can downgrade to telemetry DNR Acute kidney injury: Continue IV fluids Hyperkalemia: Continue IV fluids, Lokelma, improved down to 5.0 now 04/12/2024: Hyperkalemia: Continue IV fluids Pneumonia: Continue IV antibiotics Mucus plugs: Continue Mucomyst med nebs Med neb treatments Oxygen as needed Midodrine DNR Watch closely 04/13/2024: Continue the current regimen of IV antibiotics Oxygen as needed Monitor closely DNR 04/14/2024: Continue IV antibiotics O2 DNR JONNA: Continue IV fluids, Check the labs K+ level is pending Give Lactulose MRSA nares 04/15/2024: Pneumonia: Zithromax and meropenem Right pleural effusion: We will discuss with Pulmonary Medicine JONNA: Nephrology consult, discontinue losartan Hyperkalemia: Hypotension: Discontinue losartan DNR 04/16/24: IV antibiotics Lasix 40 mg IV bid Discussed with Dr. Martinez, he will check for pleural effusion DC IV fluids Nephrology consult DNR Discussed with the father at the bedside, no aggressive measure Plan discussed with: Other My Orders Orders - VEENA CLEMENTS MD Procedure Category Date Status Time Pureed DIET 04/15/24 Transmitted Dinner Date of Service: Apr 16, 2024 Billing Provider: VEENA CLEMENTS MD Common Visit Codes: [id number] CARE 30-74 MIN VEENA CLEMENTS MD Apr 16, 2024 14:52
[2024-04-16] MEDS: FUROSEMIDE 40 MG/4 ML VIAL IV SCH (17:26)
--- NOTE | 2024-04-16 17:45 | DVHPN2 ---
Progress Note Date Seen: Apr 16, 2024 Medical Necessity Reason Pt with a Central, PICC or Fol: Yes The following are medically ne: Wheatley Catheter Reason for wheatley catheter: Strict I&O Subjective Patient reports: Other (Upgraded to ICU because of hypotension currently on vasopressors father and other family members bedside) Review of Systems: Deferred Objective vital signs Vital Sign Date Time Temp Pulse Resp B/P (MAP) Pulse Ox O2 Delivery O2 Flow Rate FiO2 04/16/24 17:26 95/51 04/16/24 16:01 96.5 103 21 100 96.5 04/16/24 16:00 Non-Rebreather 15 N/A Total Intake and Output 04/15/24 04/15/24 04/16/24 15:00 23:00 07:00 Intake Total 425 ml 150 ml Output Total 60 ml 100 ml Balance 365 ml 50 ml medications Current Medications Medications Dose Ordered Sig/Flaca Route Start Time Stop Time Status Last Admin Dose Admin Azithromycin 250 ml @ 125 mls/hr DAILY IV 04/07/24 10:00 04/16/24 08:17 125 MLS/HR Diagnostic Test (Pha) 1 strip ACHS 04/06/24 22:00 04/16/24 16:41 1 STRIP Insulin Human Regular ACHS SC 04/06/24 22:00 04/16/24 11:43 3 UNITS Dextrose 50 ml UD PRN IV 04/06/24 19:00 Ondansetron HCl 4 mg Q4HP PRN IV 04/06/24 19:00 Acetaminophen 650 mg Q6HP PRN PO 04/06/24 19:00 04/15/24 17:28 650 MG Nitroglycerin 0.4 mg Q5MINP PRN SL 04/06/24 19:00 Morphine Sulfate 2 mg Q30M PRN IV 04/06/24 19:00 Midodrine 10 mg TID@0600,1200,1800 PO 04/07/24 06:00 04/16/24 05:48 10 MG Enoxaparin Sodium 50 mg Q12HR SC 04/08/24 22:00 04/16/24 10:50 50 MG Pantoprazole Sodium 40 mg HS IV 04/12/24 22:00 04/15/24 21:42 40 MG Meropenem 50 ml @ 17 mls/hr Q12HR IV 04/11/24 22:00 04/16/24 11:28 17 MLS/HR Albuterol 2.5 mg Q4HR NEB 04/16/24 02:00 04/16/24 02:48 2.5 MG Vasopressin 20 units/Sodium Chloride 100 ml @ 9 mls/hr Q11H7M IV 04/16/24 08:00 Lorazepam 1 mg Q5MINP PRN IV 04/16/24 08:00 Norepinephrine Bitartrate 250 ml @ 3.75 mls/hr Q24H IV 04/16/24 08:00 04/16/24 17:25 56.25 MLS/HR Albuterol 2.5 mg Q4HPRN PRN NEB 04/16/24 08:45 Furosemide 40 mg BIDD IV 04/16/24 18:00 04/16/24 17:26 40 MG Examination: GENERAL:Abnormal, LUNGS:Abnormal, NEURO:Abnormal laboratory and microbiology Laboratory Tests 04/16/24 08:46 Test 04/16/24 08:46 Range/Units Serum Glucose 157 H 74-106 mg/dL Microbiology Date/Time Source Procedure Growth Status 04/07/24 17:10 Nose MRSA Screen - Final Methicillin Resistant S.aureus Complete 04/07/24 15:48 Urine - Catheterized Urine Culture - Final Complete 04/06/24 11:25 Blood Blood Culture - Final NO GROWTH AFTER 5 DAYS OF INCUBATION. Complete Problem List/Assessment/Plan Problem List/Assessment/Plan acute kidney injury in the setting of shock Baseline renal function is normal Hyperkalemia Non-anion gap metabolic acidosis Metastatic cancer sepsis due to PNA recs Conservative management for now Medical management of hyperkalemia as ordered diuretic and bicarb Upgraded to ICU currently on vasopressors DNR DNI Plan discussed with: Other Dietary Evaluation Review Comments: 1. Encourage continued good oral intakes of >/=75% of meals 2. Continue texture-modified diet as medically appropriate Expected Outcomes/Goals: Weight maintenance, maintain skin integrity REENA KUMAR MD Apr 16, 2024 17:45
[2024-04-16] MEDS: ALBUTEROL SULF 2.5 MG/0.5ML(0.5%) NEB SOLN NEB PRN (18:30)
--- NOTE | 2024-04-16 19:25 | DVH ---
CHEST RADIOGRAPH Indication: Increased o2 requirements Technique: Single frontal view of the chest was obtained Comparison: XY CHEST PORTABLE on DOS: 04/14/24, XY CHEST XRAY 1 VIEW on DOS: 04/11/24, XY CHEST PORTABL E on DOS: 04/10/24 FINDINGS: Lines and Tubes: None Lungs: Worsening airspace disease on the left with a large right airspace disease and pleural effusio n. Pleura: Moderately large right pleural effusion No pneumothorax. Cardiomediastinal contours: Unremarkable Bones: No acute osseous abnormality. IMPRESSION: 1. The right and large right pleural effusion not significantly changed from 04/14/2024. 2. Worsening infiltrate on the left.
--- NOTE | 2024-04-16 23:36 | DVHPN2 ---
Progress Note - Dictate Date Seen: Apr 16, 2024 Medical Necessity Reason Pt with a Central, PICC or Fol: Yes The following are medically ne: Wheatley Catheter Reason for wheatley catheter: Strict I&O Subjective Patient seen and examined at bedside. Remains on supplemental oxygen Overnight events reviewed. vital signs Vital Sign Date Time Temp Pulse Resp B/P (MAP) Pulse Ox O2 Delivery O2 Flow Rate FiO2 04/16/24 23:00 121 25 109/66 (80) 94 04/16/24 22:11 Nasal Cannula* 5 N/A Non-Rebreather 04/16/24 21:00 96.5 96.5 Total Intake and Output 04/15/24 04/15/24 04/16/24 15:00 23:00 07:00 Intake Total 425 ml 150 ml Output Total 60 ml 100 ml Balance 365 ml 50 ml medications Current Medications Medications Dose Ordered Sig/Flaca Route Start Time Stop Time Status Last Admin Dose Admin Azithromycin 250 ml @ 125 mls/hr DAILY IV 04/07/24 10:00 04/16/24 08:17 125 MLS/HR Diagnostic Test (Pha) 1 strip ACHS 04/06/24 22:00 04/16/24 21:42 1 STRIP Insulin Human Regular ACHS SC 04/06/24 22:00 04/16/24 11:43 3 UNITS Dextrose 50 ml UD PRN IV 04/06/24 19:00 Ondansetron HCl 4 mg Q4HP PRN IV 04/06/24 19:00 Acetaminophen 650 mg Q6HP PRN PO 04/06/24 19:00 04/15/24 17:28 650 MG Nitroglycerin 0.4 mg Q5MINP PRN SL 04/06/24 19:00 Morphine Sulfate 2 mg Q30M PRN IV 04/06/24 19:00 Midodrine 10 mg TID@0600,1200,1800 PO 04/07/24 06:00 04/16/24 05:48 10 MG Pantoprazole Sodium 40 mg HS IV 04/12/24 22:00 04/16/24 21:41 40 MG Meropenem 50 ml @ 17 mls/hr Q12HR IV 04/11/24 22:00 04/16/24 21:41 17 MLS/HR Albuterol 2.5 mg Q4HR NEB 04/16/24 02:00 04/16/24 22:11 2.5 MG Vasopressin 20 units/Sodium Chloride 100 ml @ 9 mls/hr Q11H7M IV 04/16/24 08:00 Lorazepam 1 mg Q5MINP PRN IV 04/16/24 08:00 Norepinephrine Bitartrate 250 ml @ 3.75 mls/hr Q24H IV 04/16/24 08:00 04/16/24 22:47 56.25 MLS/HR Albuterol 2.5 mg Q4HPRN PRN NEB 04/16/24 08:45 04/16/24 18:30 2.5 MG Furosemide 40 mg BIDD IV 04/16/24 18:00 04/16/24 17:26 40 MG Enoxaparin Sodium 60 mg DAILY SC 04/17/24 10:00 objective Gen.: Patient lying in bed in no apparent distress. On supplemental oxygen. Head: Normocephalic, atraumatic. Eyes: EOMI/PERRLA. Ears: Normal hearing. Normal anatomy. Neck/trachea: Trachea midline, supple. Nose: Normal external anatomy. Mouth: Moist mucous membranes. Chest: Decreased air entry bilaterally. Coarse breath sounds. Bilateral wheezing. No rhonchi. Cardiovascular: Positive S1, positive S2. Regular rate and rhythm. Abdomen: Positive bowel sounds in all 4 quadrants. Soft, non-tender, non- distended. : Deferred. Rectal: Deferred. Skin: Warm, dry. Intact. Extremities: 2+ radial pulses bilaterally. No lower extremity edema. Neuro: Awake, alert, oriented x3. No gross motor or sensory deficits. Cranial nerves II through XII intact. Gait not assessed. laboratory and microbiology Laboratory Tests 04/16/24 08:46 Test 04/16/24 08:46 Range/Units Serum Glucose 157 H 74-106 mg/dL Assessment/Plan Impression: Acute hypoxic respiratory failure Dependence on supplemental oxygen Pneumonia, likely gram negative Aspiration pneumonia Down syndrome Atelectasis Legal blindness Deafness Events: Rapid response was called. Upgraded to ICU Patient tachycardic Placed on supplemental oxygen at 15 LPM via NRB Taper O2 as tolerated Continue bronchodilators/CPT. Continue antibiotics Antitussive for cough Hypotension - on midodrine Monitor hemodynamics closely. Start Levophed to maintain SBP above 90 mmHg. On therapeutic Lovenox Head of bed elevation Aspiration precautions On IV fluids with NS at 70 ml/hr. Protonix for GI prophylaxis. Worsening renal function - monitor creatinine Monitor electrolytes. Supplement as necessary. Lokelma for hyperkalemia HCO3 of 17 Labs and imaging reviewed. Rest of plan as noted below. Plan: Supplemental oxygen Titrate to keep O2 sats above 92%. Head of bed elevation Aspiration precautions Continue antibiotics Incentive spirometry Send sputum cultures if able to produce Midodrine PO TID Accu-Cheks, ISS. Monitor renal function. Monitor electrolytes. Supplement as necessary. Monitor ins and outs. DVT prophylaxis- Lovenox. Patient is DNR. Prognosis: Guarded given patient's multiple co-morbidities. Condition: Critical Rest of plan per hospitalist and other consultants. A total of 35 minutes of critical care time was spent reviewing the patient record, examining the patient, making a diagnostic and therapeutic plan, discussing this plan with the medical personnel, following up on diagnostic studies and following the patient for clinical stability excluding any and all procedures. At least 50% of this time was spent in direct, [id number] contact. Thank you, Dr. Aldridge, for allowing me to participate in this patient's care. Further recommendations will depend on the patient's clinical course. Please do not hesitate to contact me if you have any questions or concerns. This medical document was created using an electronic medical record system with [employer] dictation system. Although these documentations are being carefully reviewed, there may still be some phonetic and typographical changes. The errors are purely typographical, due to imperfection on the software program, and do not reflect any compromise in the patient's medical care. Dietary Evaluation Review Comments: 1. Encourage continued good oral intakes of >/=75% of meals 2. Continue texture-modified diet as medically appropriate Expected Outcomes/Goals: Weight maintenance, maintain skin integrity Plan discussed with: Other (GRICEL Peoples) Critical Care Time(min): 35 MALACHI WAITE MD Apr 16, 2024 23:36
[2024-04-17] VITALS (115 sets, daily range): BP systolic 88–126; BP diastolic 36–74; PULSE 101–137; RESP 17–40; TEMP 97.8–98.4; O2SAT 90–100
[2024-04-17 04:03] LABS: Hemoglobin 8.7 g/dL (12.2-16.2)
[2024-04-17 04:06] LABS: Hematocrit 28.7 % (36.0-46.0); Mean Corpuscular Hemoglobin 26.8 pg (28.0-32.0); Mean Corpuscular Hgb Conc. 30.3 g/dL (32.0-36.0); Mean Corpuscular Volume 88.4 fL (80.0-100.0); Platelet Count (auto) 396 10^3/uL (140-450); Red Blood Cells 3.25 10^6/uL (4.0-5.20); Red Cell Distribution Width 23.7 % (11.8-14.3); White Blood Cell 13.1 10^3/uL (4.4-10.8)
[2024-04-17 04:17] LABS: Alanine Aminotransferase 13 U/L (7-40); Anion Gap 10 (5-15); BUN/Creatinine Ratio 12.3 (10.0-20.0); Bilirubin, Total 0.3 mg/dL (0.2-1.0); Calcium 8.8 mg/dL (8.7-10.4); Glucose 82 mg/dL (74-106); Sodium 139 mmol/L (136-145); Total Protein 6.4 g/dL (5.7-8.2)
[2024-04-17 04:21] LABS: Albumin 2.8 g/dL (3.2-4.8); Alkaline Phosphatase 420 U/L (46-116); Aspartate Aminotransferase 98 U/L (13-40); Blood Urea Nitrogen 34 mg/dL (9-23); Carbon Dioxide 18 mmol/L (20-31); Chloride 111 mmol/L (98-107)
[2024-04-17 04:22] LABS: Potassium 6.1 mmol/L (3.5-5.1)
[2024-04-17 04:25] LABS: Basophils % (manual) 0 (0.0-2.0); Blast Cells 0; Eosinophils % (manual) 0 (0-7); Metamyelocytes % 0; Myelocytes % 0; Promyelocytes % 0; Reactive Lymphocytes 0
[2024-04-17] MEDS: ALBUTEROL SULF 2.5 MG/0.5ML(0.5%) NEB SOLN NEB ONE (04:39)
[2024-04-17] MEDS: CALCIUM GLUC 1,000mg/50ml-NS 50 ML IV ONE (04:46)
[2024-04-17] MEDS: FUROSEMIDE 20 MG/2 ML VIAL IV ONE (04:46)
[2024-04-17] MEDS: SODIUM BICARB 8.4% 50Meq/50ml SYR INJ IV ONE (05:03)
[2024-04-17 05:19] LABS: Band Neutrophils % (manual) 5; Lymphocytes % (manual) 6 (10.0-50.0); Monocytes % (manual) 6 (0-12); Platelet Estimate Adequate
[2024-04-17] MEDS: DEXTROSE (50%) 50ML SYRG IV ONE (05:22)
[2024-04-17] MEDS: InsuLIN REG 1unit/0.01ml Soln (100units/ml) IV ONE (05:27)
--- NOTE | 2024-04-17 09:52 | DVHPN2 ---
Subjective Unresponsive Still on Levophed drip Edematous Potassium was 6.1 so it was treated and the repeat came down to 5.8 Urine output is minimal Changes from previous H/P or p: Changes Objective Vitals Vital Signs Date Time Temp Pulse Resp B/P (MAP) Pulse Ox O2 Delivery O2 Flow Rate FiO2 04/17/24 09:44 96/63 04/17/24 09:41 119 22 100 04/17/24 08:00 Nasal Cannula* 6 44 04/17/24 08:00 98.1 98.1 Intake/Output Intake and Output 04/17/24 06:59 Intake Total 1671.00 ml Output Total 175 ml Balance 1496.00 ml Intake Oral 0 ml IV Total 1671.00 ml Output Urine Total 175 ml General Appearance: Alert, Other (Disoriented to place and time) Lungs: Other (Bilateral rhonchi) Cardiovascular: Regular rate, Normal S1, Normal S2, No murmurs Abdomen: Normal bowel sounds, Soft, No tenderness Extremities: No edema Medications Current Medications Medications Dose Ordered Sig/Flaca Route Start Time Stop Time Status Last Admin Dose Admin Azithromycin 250 ml @ 125 mls/hr DAILY IV 04/07/24 10:00 04/17/24 07:45 125 MLS/HR Diagnostic Test (Pha) 1 strip ACHS 04/06/24 22:00 04/17/24 06:12 1 STRIP Insulin Human Regular ACHS SC 04/06/24 22:00 04/16/24 11:43 3 UNITS Dextrose 50 ml UD PRN IV 04/06/24 19:00 Ondansetron HCl 4 mg Q4HP PRN IV 04/06/24 19:00 Acetaminophen 650 mg Q6HP PRN PO 04/06/24 19:00 04/15/24 17:28 650 MG Nitroglycerin 0.4 mg Q5MINP PRN SL 04/06/24 19:00 Morphine Sulfate 2 mg Q30M PRN IV 04/06/24 19:00 Midodrine 10 mg TID@0600,1200,1800 PO 04/07/24 06:00 04/16/24 05:48 10 MG Pantoprazole Sodium 40 mg HS IV 04/12/24 22:00 04/16/24 21:41 40 MG Meropenem 50 ml @ 17 mls/hr Q12HR IV 04/11/24 22:00 04/16/24 21:41 17 MLS/HR Albuterol 2.5 mg Q4HR NEB 04/16/24 02:00 04/17/24 09:41 2.5 MG Vasopressin 20 units/Sodium Chloride 100 ml @ 9 mls/hr Q11H7M IV 04/16/24 08:00 Lorazepam 1 mg Q5MINP PRN IV 04/16/24 08:00 Norepinephrine Bitartrate 250 ml @ 3.75 mls/hr Q24H IV 04/16/24 08:00 04/17/24 09:44 33.75 MLS/HR Albuterol 2.5 mg Q4HPRN PRN NEB 04/16/24 08:45 04/16/24 18:30 2.5 MG Furosemide 40 mg BIDD IV 04/16/24 18:00 04/17/24 06:01 40 MG Enoxaparin Sodium 60 mg DAILY SC 04/17/24 10:00 Laboratory Results Laboratory Tests 04/17/24 03:25 04/17/24 08:26 Chemistry Test 04/17/24 03:25 Albumin 2.8 g/dL (3.2-4.8) L Calcium Level 8.8 mg/dL (8.7-10.4) Magnesium Level 2.0 mg/dL (1.6-2.6) Total Protein 6.4 g/dL (5.7-8.2) LFT Test 04/17/24 03:25 Alanine Aminotransferase (ALT) 13 U/L (7-40) Alkaline Phosphatase 420 U/L (46-116) H Aspartate Amino Transferase (AST) 98 U/L (13-40) H Total Bilirubin 0.3 mg/dL (0.2-1.0) Urinalysis Test 04/07/24 15:48 Urine Color Yellow (Yellow) Urine Clarity Turbid (Clear) H Urine pH 5.0 (5.0-9.0) Urine Specific [place] 1.015 (1.001-1.035) Urine Protein Trace (Negative) H Urine Ketones Negative (Negative) Urine Blood Negative /uL (Negative) Urine Nitrite Negative (Negative) Urine Bilirubin Negative (Negative) Urine Urobilinogen Normal mg/dL (Negative) Urine Leukocyte Esterase Negative /uL (Negative) Urine RBC <1 /hpf (0 - 4) Urine Microscopic WBC 2 /HPF (0-5) Urine Squamous Epithelial Cells None seen /hpf (<5) Urine Bacteria Few /hpf (None Seen) H Urine Granular Casts Few /lpf (0) Urine Mucus Few (None Seen) Urine Yeast (Budding) Occasional /hpf (None Urine Glucose Normal mg/dL (Normal) Microbiology Microbiology Date/Time Source Procedure Growth Status 04/07/24 17:10 Nose MRSA Screen - Final Methicillin Resistant S.aureus Complete 04/07/24 15:48 Urine - Catheterized Urine Culture - Final Complete 04/06/24 11:25 Blood Blood Culture - Final NO GROWTH AFTER 5 DAYS OF INCUBATION. Complete Assessment/Plan Assessment/Plan Sepsis Metabolic encephalopathy Rule out UTI Type 2 diabetic Colon cancer Possible underlying pneumonia Acute kidney injury hemodynamically mediated Recent diagnosis of colon cancer metastatic to the liver according to her father Lactic acidosis Chronic anemia Hypomagnesemia Plan 04/07/2024: Broad-spectrum antibiotics Get a UA and urine culture Blood culture Discussed with the father at the bedside DNR Advance directives discussed for 15 minutes 04/08/2024: Sepsis with tachycardia: Give a bolus of IV fluids 500 mL normal saline Hypomagnesemia: Replace IV magnesium Sepsis: Continue IV antibiotics Dehydration: Start IV fluids Hyperkalemia: IV fluids Pneumonia: Rocephin and Zithromax 04/09/2024: Sinus tachycardia: Continue IV fluids and IV antibiotics UTI Pneumonia: Continue Zithromax and Rocephin Right pleural effusion: Consult pulmonology for thoracentesis MRSA in the nostrils: Bactroban ointment Hypomagnesemia: Replace IV Colon cancer Type 2 diabetes Cerebral palsy 04/10/2024: Repeat chest x-ray Antibiotics to meropenem IV and Zithromax Pulmonary consultation Continue IV fluids normal saline Vasopressors as needed Hyperkalemia: Continue IV fluids JONNA due to hemodynamically mediated: Continue IV fluids Discussed with the father at the bedside DNR Pulmonary consult obtained, Dr. Martinez recommended a bronchoscopy but the father declined at this point Continue medical management 04/11/2024: Continue IV antibiotics meropenem and Zithromax Continue IV fluids Oxygen as needed Patient is off vasopressors now, if she stays off the pressors for few more hours then we can downgrade to telemetry DNR Acute kidney injury: Continue IV fluids Hyperkalemia: Continue IV fluids, Lokelma, improved down to 5.0 now 04/12/2024: Hyperkalemia: Continue IV fluids Pneumonia: Continue IV antibiotics Mucus plugs: Continue Mucomyst med nebs Med neb treatments Oxygen as needed Midodrine DNR Watch closely 04/13/2024: Continue the current regimen of IV antibiotics Oxygen as needed Monitor closely DNR 04/14/2024: Continue IV antibiotics O2 DNR JONNA: Continue IV fluids, Check the labs K+ level is pending Give Lactulose MRSA nares 04/15/2024: Pneumonia: Zithromax and meropenem Right pleural effusion: We will discuss with Pulmonary Medicine JONNA: Nephrology consult, discontinue losartan Hyperkalemia: Hypotension: Discontinue losartan DNR 04/16/24: IV antibiotics Lasix 40 mg IV bid Discussed with Dr. Martinez, he will check for pleural effusion DC IV fluids Nephrology consult DNR Discussed with the father at the bedside, no aggressive measure 04/17/2024: Hyperkalemia: Emergency treatment was given, repeat is 5.8 Acute kidney injury due to vasomotor nephropathy: Oliguria Pneumonia Acute hypoxic respiratory failure: Continue IV antibiotics Nephrology consult Pulmonary consult DNR Discussed with the family at the bedside yesterday, her father wants no aggressive measures We will discuss again with the family whether they are interested in hospice at home Plan discussed with: Other My Orders Orders - VEENA CLEMENTS MD Procedure Category Date Status Time Furosemide Injection PHA 04/16/24 In Process (Lasix Injection) 18:00 Date of Service: Apr 17, 2024 Billing Provider: VEENA CLEMENTS MD Common Visit Codes: [id number] CARE 30-74 MIN VEENA CLEMENTS MD Apr 17, 2024 09:52
[2024-04-17] MEDS: ENOXAPARIN SOD 60 MG/0.6 ML SYRINGE SC SCH (10:04)
[2024-04-17] MEDS: BUMETANIDE INJECTION 25 MG in GIVE UN-DILUTED 0 ML IV SCH (14:30)
--- NOTE | 2024-04-17 15:35 | DVHPN2 ---
Progress Note Date Seen: Apr 17, 2024 Medical Necessity Reason Pt with a Central, PICC or Fol: Yes The following are medically ne: Wheatley Catheter Reason for wheatley catheter: Strict I&O Subjective Patient reports: Other Review of Systems: Deferred Objective vital signs Vital Sign Date Time Temp Pulse Resp B/P (MAP) Pulse Ox O2 Delivery O2 Flow Rate FiO2 04/17/24 14:45 116 20 118/51 (73) 95 04/17/24 14:00 Nasal Cannula* 2 28 04/17/24 12:00 98.0 98.0 Total Intake and Output 04/16/24 04/16/24 04/17/24 15:00 23:00 07:00 Intake Total 793.75 ml 484.00 ml 427.25 ml Output Total 50 ml 125 ml Balance 793.75 ml 434.00 ml 302.25 ml medications Current Medications Medications Dose Ordered Sig/Flaca Route Start Time Stop Time Status Last Admin Dose Admin Azithromycin 250 ml @ 125 mls/hr DAILY IV 04/07/24 10:00 04/17/24 07:45 125 MLS/HR Diagnostic Test (Pha) 1 strip ACHS 04/06/24 22:00 04/17/24 11:54 1 STRIP Insulin Human Regular ACHS SC 04/06/24 22:00 04/16/24 11:43 3 UNITS Dextrose 50 ml UD PRN IV 04/06/24 19:00 Ondansetron HCl 4 mg Q4HP PRN IV 04/06/24 19:00 Acetaminophen 650 mg Q6HP PRN PO 04/06/24 19:00 04/15/24 17:28 650 MG Nitroglycerin 0.4 mg Q5MINP PRN SL 04/06/24 19:00 Morphine Sulfate 2 mg Q30M PRN IV 04/06/24 19:00 Midodrine 10 mg TID@0600,1200,1800 PO 04/07/24 06:00 04/16/24 05:48 10 MG Pantoprazole Sodium 40 mg HS IV 04/12/24 22:00 04/16/24 21:41 40 MG Meropenem 50 ml @ 17 mls/hr Q12HR IV 04/11/24 22:00 04/17/24 10:04 17 MLS/HR Albuterol 2.5 mg Q4HR NEB 04/16/24 02:00 04/17/24 14:03 2.5 MG Vasopressin 20 units/Sodium Chloride 100 ml @ 9 mls/hr Q11H7M IV 04/16/24 08:00 Lorazepam 1 mg Q5MINP PRN IV 04/16/24 08:00 Norepinephrine Bitartrate 250 ml @ 3.75 mls/hr Q24H IV 04/16/24 08:00 04/17/24 09:44 33.75 MLS/HR Albuterol 2.5 mg Q4HPRN PRN NEB 04/16/24 08:45 04/16/24 18:30 2.5 MG Enoxaparin Sodium 60 mg DAILY SC 04/17/24 10:00 04/17/24 10:04 60 MG Bumetanide 25 mg/ Miscellaneous 100 ml @ 4 mls/hr Q24H IV 04/17/24 10:45 04/17/24 14:30 4 MLS/HR Examination: GENERAL:Abnormal, LUNGS:Abnormal, MSK:Abnormal (Positive edema), NEURO:Abnormal laboratory and microbiology Laboratory Tests 04/17/24 08:26 04/17/24 03:25 Test 04/17/24 03:25 Range/Units Serum Glucose 82 74-106 mg/dL Microbiology Date/Time Source Procedure Growth Status 04/07/24 17:10 Nose MRSA Screen - Final Methicillin Resistant S.aureus Complete 04/07/24 15:48 Urine - Catheterized Urine Culture - Final Complete 04/06/24 11:25 Blood Blood Culture - Final NO GROWTH AFTER 5 DAYS OF INCUBATION. Complete Problem List/Assessment/Plan Problem List/Assessment/Plan acute kidney injury in the setting of shock Baseline renal function is normal Hyperkalemia Non-anion gap metabolic acidosis Metastatic cancer sepsis due to PNA recs Bumex drip IV as ordered Conservative management for now Medical management of hyperkalemia as ordered Upgraded to ICU currently on vasopressors DNR DNI Recommend comfort care--family does not want any aggressive care including dialysis-- Plan discussed with: Other My Orders My Orders Orders - REENA KUMAR MD Procedure Category Date Status Time Give Un-Diluted PHA 04/17/24 In Process (Gi... W/Bumetanide 10:45 Dietary Evaluation Review Comments: 1. Encourage continued good oral intakes of >/=75% of meals 2. Continue texture-modified diet as medically appropriate Expected Outcomes/Goals: Weight maintenance, maintain skin integrity REENA KUMAR MD Apr 17, 2024 15:35
[2024-04-17] MEDS: DEXTROSE (50%) 50ML SYRG IV PRN (17:19)
--- NOTE | 2024-04-17 22:49 | DVHPN2 ---
Progress Note - Dictate Date Seen: Apr 17, 2024 Medical Necessity Reason Pt with a Central, PICC or Fol: Yes The following are medically ne: Wheatley Catheter Reason for wheatley catheter: Strict I&O Subjective Patient seen and examined at bedside. Remains on supplemental oxygen Overnight events reviewed. vital signs Vital Sign Date Time Temp Pulse Resp B/P (MAP) Pulse Ox O2 Delivery O2 Flow Rate FiO2 04/17/24 22:14 117 20 98 04/17/24 18:45 118/67 (84) 04/17/24 18:30 Nasal Cannula* 2 N/A Non-Rebreather 04/17/24 16:00 98.1 98.1 Total Intake and Output 04/16/24 04/16/24 04/17/24 15:00 23:00 07:00 Intake Total 793.75 ml 484.00 ml 427.25 ml Output Total 50 ml 125 ml Balance 793.75 ml 434.00 ml 302.25 ml medications Current Medications Medications Dose Ordered Sig/Flaca Route Start Time Stop Time Status Last Admin Dose Admin Azithromycin 250 ml @ 125 mls/hr DAILY IV 04/07/24 10:00 04/17/24 07:45 125 MLS/HR Diagnostic Test (Pha) 1 strip ACHS 04/06/24 22:00 04/17/24 17:12 1 STRIP Insulin Human Regular ACHS SC 04/06/24 22:00 04/16/24 11:43 3 UNITS Dextrose 50 ml UD PRN IV 04/06/24 19:00 04/17/24 17:19 50 ML Ondansetron HCl 4 mg Q4HP PRN IV 04/06/24 19:00 Acetaminophen 650 mg Q6HP PRN PO 04/06/24 19:00 04/15/24 17:28 650 MG Nitroglycerin 0.4 mg Q5MINP PRN SL 04/06/24 19:00 Morphine Sulfate 2 mg Q30M PRN IV 04/06/24 19:00 Midodrine 10 mg TID@0600,1200,1800 PO 04/07/24 06:00 04/16/24 05:48 10 MG Pantoprazole Sodium 40 mg HS IV 04/12/24 22:00 04/16/24 21:41 40 MG Meropenem 50 ml @ 17 mls/hr Q12HR IV 04/11/24 22:00 04/17/24 10:04 17 MLS/HR Albuterol 2.5 mg Q4HR NEB 04/16/24 02:00 04/17/24 22:13 2.5 MG Vasopressin 20 units/Sodium Chloride 100 ml @ 9 mls/hr Q11H7M IV 04/16/24 08:00 Lorazepam 1 mg Q5MINP PRN IV 04/16/24 08:00 Norepinephrine Bitartrate 250 ml @ 3.75 mls/hr Q24H IV 04/16/24 08:00 04/17/24 16:47 26.25 MLS/HR Albuterol 2.5 mg Q4HPRN PRN NEB 04/16/24 08:45 04/16/24 18:30 2.5 MG Enoxaparin Sodium 60 mg DAILY SC 04/17/24 10:00 04/17/24 10:04 60 MG Bumetanide 25 mg/ Miscellaneous 100 ml @ 4 mls/hr Q24H IV 04/17/24 10:45 04/17/24 14:30 4 MLS/HR objective Gen.: Patient lying in bed in no apparent distress. On supplemental oxygen. Head: Normocephalic, atraumatic. Eyes: EOMI/PERRLA. Ears: Normal hearing. Normal anatomy. Neck/trachea: Trachea midline, supple. Nose: Normal external anatomy. Mouth: Moist mucous membranes. Chest: Decreased air entry bilaterally. Coarse breath sounds. Bilateral wheezing. No rhonchi. Cardiovascular: Positive S1, positive S2. Regular rate and rhythm. Abdomen: Positive bowel sounds in all 4 quadrants. Soft, non-tender, non- distended. : Deferred. Rectal: Deferred. Skin: Warm, dry. Intact. Extremities: 2+ radial pulses bilaterally. No lower extremity edema. Neuro: Awake, alert, oriented x3. No gross motor or sensory deficits. Cranial nerves II through XII intact. Gait not assessed. laboratory and microbiology Laboratory Tests 04/17/24 08:26 04/17/24 03:25 Test 04/17/24 03:25 Range/Units Serum Glucose 82 74-106 mg/dL Assessment/Plan Impression: Acute hypoxic respiratory failure Dependence on supplemental oxygen Pneumonia, likely gram negative Aspiration pneumonia Down syndrome Atelectasis Legal blindness Deafness Events: Remains on supplemental oxygen On 2 LPM NC Taper O2 as tolerated Improved O2 requirements Continue bronchodilators/CPT. Continue antibiotics Antitussive for cough Hypotension - on midodrine Monitor hemodynamics closely. Levophed to maintain SBP above 90 mmHg - on Levophed 14 mcg/min. On therapeutic Lovenox Head of bed elevation Aspiration precautions On IV fluids with NS at 70 ml/hr. Protonix for GI prophylaxis. Bumex drip for diuresis Monitor renal function - monitor creatinine Poor UOP Monitor electrolytes. Supplement as necessary. Lokelma for hyperkalemia Nephrology recommendations appreciated. Labs and imaging reviewed. Rest of plan as noted below. Plan: Supplemental oxygen Titrate to keep O2 sats above 92%. Head of bed elevation Aspiration precautions Continue antibiotics Incentive spirometry Send sputum cultures if able to produce Midodrine PO TID Accu-Cheks, ISS. Monitor renal function. Monitor electrolytes. Supplement as necessary. Monitor ins and outs. DVT prophylaxis- Lovenox. Patient is DNR. Prognosis: Guarded given patient's multiple co-morbidities. Condition: Critical Rest of plan per hospitalist and other consultants. A total of 35 minutes of critical care time was spent reviewing the patient record, examining the patient, making a diagnostic and therapeutic plan, discussing this plan with the medical personnel, following up on diagnostic studies and following the patient for clinical stability excluding any and all procedures. At least 50% of this time was spent in direct, [id number] contact. Thank you, Dr. Aldridge, for allowing me to participate in this patient's care. Further recommendations will depend on the patient's clinical course. Please do not hesitate to contact me if you have any questions or concerns. This medical document was created using an electronic medical record system with [employer] dictation system. Although these documentations are being carefully reviewed, there may still be some phonetic and typographical changes. The errors are purely typographical, due to imperfection on the software program, and do not reflect any compromise in the patient's medical care. Dietary Evaluation Review Comments: 1. Encourage continued good oral intakes of >/=75% of meals 2. Continue texture-modified diet as medically appropriate Expected Outcomes/Goals: Weight maintenance, maintain skin integrity Plan discussed with: Other (RN) Critical Care Time(min): 35 MALACHI WAITE MD Apr 17, 2024 22:49
[2024-04-18] VITALS (90 sets, daily range): BP systolic 78–136; BP diastolic 15–72; PULSE 98–155; RESP 15–42; TEMP 97.7–99.2; O2SAT 89–100
[2024-04-18 04:39] LABS: Basophils # (auto) 0 10 ^3/uL (0-0.2); Eosinophils # (auto) 0.1 10 ^3/uL (0-0.8); Hemoglobin 7.2 g/dL (12.2-16.2); Lymphocytes # (auto) 0.8 10 ^3/uL (0.4-5.4); Monocytes # (auto) 0.8 10 ^3/uL (0-1.3); Monocytes % (auto) 5.9 % (0.0-12.0); White Blood Cell 13.2 10^3/uL (4.4-10.8)
[2024-04-18 04:43] LABS: Basophils % (auto) 0.3 % (0.0-2.0); Eosinophils % (auto) 0.7 % (0.0-7.0); Hematocrit 22.9 % (36.0-46.0); Lymphocytes % (auto) 6.2 % (10.0-50.0); Mean Corpuscular Hemoglobin 26.9 pg (28.0-32.0); Mean Corpuscular Hgb Conc. 31.5 g/dL (32.0-36.0); Mean Corpuscular Volume 85.6 fL (80.0-100.0); Neutrophils # (auto) 11.5 10 ^3/uL (1.6-8.6); Neutrophils % (auto) 86.9 % (37.0-80.0); Nucleated Red Blood Cells % 0.9 %; Platelet Count (auto) 384 10^3/uL (140-450); Red Blood Cells 2.67 10^6/uL (4.0-5.20); Red Cell Distribution Width 23.5 % (11.8-14.3)
[2024-04-18 04:49] LABS: Alanine Aminotransferase 16 U/L (7-40); Anion Gap 11 (5-15); BUN/Creatinine Ratio 14.5 (10.0-20.0); Carbon Dioxide 20 mmol/L (20-31); Glucose 85 mg/dL (74-106); Sodium 142 mmol/L (136-145)
[2024-04-18 04:50] LABS: Bilirubin, Total 0.4 mg/dL (0.2-1.0); Total Protein 6.2 g/dL (5.7-8.2)
[2024-04-18] MEDS ORDERED: HYDROcodone-ACET 5/325MG TAB PO PRN (05:00)
--- NOTE | 2024-04-18 05:14 | DVH ---
EXAM: XR Chest, 1 View CLINICAL INDICATION: PROTOCOL TECHNIQUE: Frontal view of the chest. COMPARISON: XY CHEST XRAY 1 VIEW on DOS: 04/16/24, XY CHEST PORTABLE on DOS: 04/14/24, XY CHEST XRAY 1 VIEW on DOS: 04/11/24, XY CHEST PORTABLE on DOS: 04/10/24, XY CHEST PORTABLE on DOS: 04/08/24 FINDINGS: LUNGS AND PLEURAL SPACES: Pleural effusions. HEART: Cardiomegaly with pulmonary congestion and edema. Superimposed pneumonia cannot be excluded. MEDIASTINUM: Unremarkable. Normal mediastinal contour. BONES/JOINTS: Unremarkable. No acute fracture. OTHER FINDINGS: . None. ... IMPRESSION: Cardiomegaly with pulmonary congestion and edema. Superimposed pneumonia cannot be excluded.
[2024-04-18 05:23] LABS: Albumin 2.7 g/dL (3.2-4.8); Alkaline Phosphatase 533 U/L (46-116); Aspartate Aminotransferase 145 U/L (13-40); Blood Urea Nitrogen 42 mg/dL (9-23); Chloride 111 mmol/L (98-107); Potassium 5.3 mmol/L (3.5-5.1)
[2024-04-18] MEDS: MORPHINE SULFATE INJ 2 MG/ml SYRG IM ONE (05:55)
[2024-04-18] MEDS: ACETYLCYSTEINE 20%(200MG/ML) SOL 4ML NEB SCH (06:25)
[2024-04-18] MEDS: SODIUM BICARB 8.4% 50Meq/50ml SYR Vial IV ONE (06:49)
[2024-04-18] MEDS: CALCIUM GLUC 1,000mg/50ml-NS 50 ML IV ONE (06:59)
[2024-04-18] MEDS: LORazepam 2MG/ML-1ML VIAL ONE (09:04)
[2024-04-18] MEDS: MORPHINE SULFATE INJ 2 MG/ml SYRG IV PRN ×2 (12:02→15:09)
[2024-04-18] MEDS ORDERED: MORPHINE SULFATE INJ 2 MG/ml SYRG IV PRN (12:30)
[2024-04-18 12:41] LABS: Protein, Urine 75.4 mg/dL (1-14)
--- NOTE | 2024-04-18 12:41 | DVHPN2 ---
Progress Note Date Seen: Apr 18, 2024 Medical Necessity Reason Pt with a Central, PICC or Fol: Yes The following are medically ne: Wheatley Catheter Reason for wheatley catheter: Strict I&O Subjective Review of Systems: RESPIRATORY:Abnormal Other Systems: Patient seen and examined by myself today in follow-up, patient remained on BiPAP Objective vital signs Vital Sign Date Time Temp Pulse Resp B/P (MAP) Pulse Ox O2 Delivery O2 Flow Rate FiO2 04/18/24 12:02 137 27 105/36 04/18/24 10:28 96 04/18/24 10:18 Facial BiPAP Mask 30 04/18/24 04:00 98.6 98.6 04/18/24 04:00 2 Total Intake and Output 04/17/24 04/17/24 04/18/24 15:00 23:00 07:00 Intake Total 530 ml 257 ml 281.5 ml Output Total 50 ml 230 ml Balance 530 ml 207 ml 51.5 ml medications Current Medications Medications Dose Ordered Sig/Flaca Route Start Time Stop Time Status Last Admin Dose Admin Azithromycin 250 ml @ 125 mls/hr DAILY IV 04/07/24 10:00 04/18/24 09:26 125 MLS/HR Diagnostic Test (Pha) 1 strip ACHS 04/06/24 22:00 04/18/24 11:39 1 STRIP Insulin Human Regular ACHS SC 04/06/24 22:00 04/16/24 11:43 3 UNITS Dextrose 50 ml UD PRN IV 04/06/24 19:00 04/17/24 22:53 50 ML Ondansetron HCl 4 mg Q4HP PRN IV 04/06/24 19:00 Acetaminophen 650 mg Q6HP PRN PO 04/06/24 19:00 04/15/24 17:28 650 MG Nitroglycerin 0.4 mg Q5MINP PRN SL 04/06/24 19:00 Morphine Sulfate 2 mg Q30M PRN IV 04/06/24 19:00 Midodrine 10 mg TID@0600,1200,1800 PO 04/07/24 06:00 04/16/24 05:48 10 MG Pantoprazole Sodium 40 mg HS IV 04/12/24 22:00 04/17/24 22:40 40 MG Meropenem 50 ml @ 17 mls/hr Q12HR IV 04/11/24 22:00 04/18/24 11:05 17 MLS/HR Albuterol 2.5 mg Q4HR NEB 04/16/24 02:00 04/18/24 10:18 2.5 MG Vasopressin 20 units/Sodium Chloride 100 ml @ 9 mls/hr Q11H7M IV 04/16/24 08:00 Lorazepam 1 mg Q5MINP PRN IV 04/16/24 08:00 Norepinephrine Bitartrate 250 ml @ 3.75 mls/hr Q24H IV 04/16/24 08:00 04/18/24 03:46 22.5 MLS/HR Albuterol 2.5 mg Q4HPRN PRN NEB 04/16/24 08:45 04/16/24 18:30 2.5 MG Enoxaparin Sodium 60 mg DAILY SC 04/17/24 10:00 04/17/24 10:04 60 MG Bumetanide 25 mg/ Miscellaneous 100 ml @ 4 mls/hr Q24H IV 04/17/24 10:45 04/18/24 07:50 4 MLS/HR Acetylcysteine 200 mg Q8HR NEB 04/18/24 06:00 04/18/24 06:25 200 MG Acetaminophen/ Hydrocodone Bitart 1 tab Q6HPRN PRN PO 04/18/24 05:00 Albumin Human 100 ml @ 100 mls/hr Q8H IV 04/18/24 14:00 04/19/24 06:59 UNV Morphine Sulfate 1 mg Q4HP PRN IV 04/18/24 12:30 UNV Examination: LUNGS:Normal, CVS:Normal, MSK:Normal laboratory and microbiology Laboratory Tests 04/18/24 03:53 Test 04/18/24 03:53 Range/Units Serum Glucose 85 74-106 mg/dL Microbiology Date/Time Source Procedure Growth Status 04/07/24 17:10 Nose MRSA Screen - Final Methicillin Resistant S.aureus Complete 04/07/24 15:48 Urine - Catheterized Urine Culture - Final Complete 04/06/24 11:25 Blood Blood Culture - Final NO GROWTH AFTER 5 DAYS OF INCUBATION. Complete Problem List/Assessment/Plan Problem List/Assessment/Plan acute kidney injury in the setting of shock Baseline renal function is normal Hyperkalemia Non-anion gap metabolic acidosis Metastatic cancer sepsis due to PNA Recommendations Wheatley catheter Strict I&Os Bumex drip IV as ordered Conservative management for now Medical management of hyperkalemia as ordered IV pressors for Blood pressure support IV antibiotics DNR DNI Recommend comfort care--family does not want any aggressive care including dialysis-- Plan discussed with: Other (Nurse) My Orders My Orders Orders - TU GERARDO MD Procedure Category Date Status Time Urine Sodium LAB 04/18/24 In Process 10:00 Urine LAB 04/18/24 In Process Protein/Creatinine Albumin 25% (Alb[place]in) PHA 04/18/24 Logged 14:00 Dietary Evaluation Review Comments: 1. Encourage continued good oral intakes of >/=75% of meals 2. Continue texture-modified diet as medically appropriate Expected Outcomes/Goals: Weight maintenance, maintain skin integrity TU GERARDO MD Apr 18, 2024 12:41
[2024-04-18 12:44] LABS: Creatinine, Urine 50.6 mg/dL (30.0-125.0); Urine Protein/Creatinine Ratio 1.49
[2024-04-18] MEDS ORDERED: LORazepam 2MG/ML-1ML VIAL IV PRN (14:00)
[2024-04-18] MEDS ORDERED: ACETAMINOPHEN 650 MG RECT SUPP PR PRN (14:00)
[2024-04-18] MEDS: ALBUMIN 25% 100 ML IV SCH (15:03)
--- NOTE | 2024-04-18 17:56 | DVHPN2 ---
Subjective She was in pain moaning this morning on BiPAP Off Levophed at noon Edematous Changes from previous H/P or p: Changes Objective Vitals Vital Signs Date Time Temp Pulse Resp B/P (MAP) Pulse Ox O2 Delivery O2 Flow Rate FiO2 04/18/24 17:43 126 34 79/26 04/18/24 16:00 96 Nasal Cannula* 3 32 04/18/24 12:00 99.1 99.1 Intake/Output Intake and Output 04/18/24 07:00 Intake Total 1068.5 ml Output Total 280 ml Balance 788.5 ml Intake Oral 0 ml IV Total 1068.5 ml Output Urine Total 280 ml General Appearance: Alert, Other (Disoriented to place and time) Lungs: Other (Bilateral rhonchi) Cardiovascular: Regular rate, Normal S1, Normal S2, No murmurs Abdomen: Normal bowel sounds, Soft, No tenderness Extremities: No edema Medications Current Medications Medications Dose Ordered Sig/Flaca Route Start Time Stop Time Status Last Admin Dose Admin Azithromycin 250 ml @ 125 mls/hr DAILY IV 04/07/24 10:00 04/18/24 09:26 125 MLS/HR Diagnostic Test (Pha) 1 strip ACHS 04/06/24 22:00 04/18/24 11:39 1 STRIP Insulin Human Regular ACHS SC 04/06/24 22:00 04/16/24 11:43 3 UNITS Dextrose 50 ml UD PRN IV 04/06/24 19:00 04/17/24 22:53 50 ML Ondansetron HCl 4 mg Q4HP PRN IV 04/06/24 19:00 Nitroglycerin 0.4 mg Q5MINP PRN SL 04/06/24 19:00 Morphine Sulfate 2 mg Q30M PRN IV 04/06/24 19:00 Midodrine 10 mg TID@0600,1200,1800 PO 04/07/24 06:00 04/16/24 05:48 10 MG Pantoprazole Sodium 40 mg HS IV 04/12/24 22:00 04/17/24 22:40 40 MG Meropenem 50 ml @ 17 mls/hr Q12HR IV 04/11/24 22:00 04/18/24 11:05 17 MLS/HR Vasopressin 20 units/Sodium Chloride 100 ml @ 9 mls/hr Q11H7M IV 04/16/24 08:00 Lorazepam 1 mg Q5MINP PRN IV 04/16/24 08:00 Norepinephrine Bitartrate 250 ml @ 3.75 mls/hr Q24H IV 04/16/24 08:00 04/18/24 03:46 22.5 MLS/HR Albuterol 2.5 mg Q4HPRN PRN NEB 04/16/24 08:45 04/16/24 18:30 2.5 MG Enoxaparin Sodium 60 mg DAILY SC 04/17/24 10:00 04/17/24 10:04 60 MG Bumetanide 25 mg/ Miscellaneous 100 ml @ 4 mls/hr Q24H IV 04/17/24 10:45 04/18/24 07:50 4 MLS/HR Acetylcysteine 200 mg Q8HR NEB 04/18/24 06:00 04/18/24 14:03 200 MG Albumin Human 100 ml @ 100 mls/hr Q8H IV 04/18/24 14:00 04/19/24 06:59 04/18/24 15:03 100 MLS/HR Morphine Sulfate 1 mg Q1HP PRN IV 04/18/24 14:00 04/18/24 17:43 1 MG Lorazepam 0.5 mg Q1HP PRN IV 04/18/24 14:00 Acetaminophen 650 mg Q6HP PRN MD 04/18/24 14:00 Albuterol 2.5 mg Q4HWA NEB 04/18/24 18:00 UNV Laboratory Results Laboratory Tests 04/18/24 03:53 Chemistry Test 04/18/24 03:53 Albumin 2.7 g/dL (3.2-4.8) L Calcium Level 9.0 mg/dL (8.7-10.4) Magnesium Level 2.0 mg/dL (1.6-2.6) Total Protein 6.2 g/dL (5.7-8.2) LFT Test 04/18/24 03:53 Alanine Aminotransferase (ALT) 16 U/L (7-40) Alkaline Phosphatase 533 U/L (46-116) H Aspartate Amino Transferase (AST) 145 U/L (13-40) H Total Bilirubin 0.4 mg/dL (0.2-1.0) Urinalysis Test 04/07/24 15:48 04/18/24 11:50 Urine Color Yellow (Yellow) Urine Clarity Turbid (Clear) H Urine pH 5.0 (5.0-9.0) Urine Specific [place] 1.015 (1.001-1.035) Urine Protein Trace (Negative) H Urine Ketones Negative (Negative) Urine Blood Negative /uL (Negative) Urine Nitrite Negative (Negative) Urine Bilirubin Negative (Negative) Urine Urobilinogen Normal mg/dL (Negative) Urine Leukocyte Esterase Negative /uL (Negative) Urine RBC <1 /hpf (0 - 4) Urine Microscopic WBC 2 /HPF (0-5) Urine Squamous Epithelial Cells None seen /hpf (<5) Urine Bacteria Few /hpf (None Seen) H Urine Granular Casts Few /lpf (0) Urine Mucus Few (None Seen) Urine Yeast (Budding) Occasional /hpf (None Urine Glucose Normal mg/dL (Normal) Urine Creatinine 50.60 mg/dL (30.0-125.0) Urine Protein/Creatinine Ratio 1.49 Urine Sodium 75 mmol/L (40-220) Urine Total Protein 75.4 mg/dL (1-14) H Microbiology Microbiology Date/Time Source Procedure Growth Status 04/07/24 17:10 Nose MRSA Screen - Final Methicillin Resistant S.aureus Complete 04/07/24 15:48 Urine - Catheterized Urine Culture - Final Complete 04/06/24 11:25 Blood Blood Culture - Final NO GROWTH AFTER 5 DAYS OF INCUBATION. Complete Assessment/Plan Assessment/Plan Sepsis Metabolic encephalopathy Rule out UTI Type 2 diabetic Colon cancer Possible underlying pneumonia Acute kidney injury hemodynamically mediated Recent diagnosis of colon cancer metastatic to the liver according to her father Lactic acidosis Chronic anemia Hypomagnesemia Plan 04/07/2024: Broad-spectrum antibiotics Get a UA and urine culture Blood culture Discussed with the father at the bedside DNR Advance directives discussed for 15 minutes 04/08/2024: Sepsis with tachycardia: Give a bolus of IV fluids 500 mL normal saline Hypomagnesemia: Replace IV magnesium Sepsis: Continue IV antibiotics Dehydration: Start IV fluids Hyperkalemia: IV fluids Pneumonia: Rocephin and Zithromax 04/09/2024: Sinus tachycardia: Continue IV fluids and IV antibiotics UTI Pneumonia: Continue Zithromax and Rocephin Right pleural effusion: Consult pulmonology for thoracentesis MRSA in the nostrils: Bactroban ointment Hypomagnesemia: Replace IV Colon cancer Type 2 diabetes Cerebral palsy 04/10/2024: Repeat chest x-ray Antibiotics to meropenem IV and Zithromax Pulmonary consultation Continue IV fluids normal saline Vasopressors as needed Hyperkalemia: Continue IV fluids JONNA due to hemodynamically mediated: Continue IV fluids Discussed with the father at the bedside DNR Pulmonary consult obtained, Dr. Martinez recommended a bronchoscopy but the father declined at this point Continue medical management 04/11/2024: Continue IV antibiotics meropenem and Zithromax Continue IV fluids Oxygen as needed Patient is off vasopressors now, if she stays off the pressors for few more hours then we can downgrade to telemetry DNR Acute kidney injury: Continue IV fluids Hyperkalemia: Continue IV fluids, Lokelma, improved down to 5.0 now 04/12/2024: Hyperkalemia: Continue IV fluids Pneumonia: Continue IV antibiotics Mucus plugs: Continue Mucomyst med nebs Med neb treatments Oxygen as needed Midodrine DNR Watch closely 04/13/2024: Continue the current regimen of IV antibiotics Oxygen as needed Monitor closely DNR 04/14/2024: Continue IV antibiotics O2 DNR JONNA: Continue IV fluids, Check the labs K+ level is pending Give Lactulose MRSA nares 04/15/2024: Pneumonia: Zithromax and meropenem Right pleural effusion: We will discuss with Pulmonary Medicine JONNA: Nephrology consult, discontinue losartan Hyperkalemia: Hypotension: Discontinue losartan DNR 04/16/24: IV antibiotics Lasix 40 mg IV bid Discussed with Dr. Martinez, he will check for pleural effusion DC IV fluids Nephrology consult DNR Discussed with the father at the bedside, no aggressive measure 04/17/2024: Hyperkalemia: Emergency treatment was given, repeat is 5.8 Acute kidney injury due to vasomotor nephropathy: Oliguria Pneumonia Acute hypoxic respiratory failure: Continue IV antibiotics Nephrology consult Pulmonary consult DNR Discussed with the family at the bedside yesterday, her father wants no aggressive measures We will discuss again with the family whether they are interested in hospice at home 04/18/24: Discussed with the father at the bedside DC Levophed DC BiPAP Full DNR Comfort measures Morphine and Ativan prn Plan discussed with: Other My Orders Orders - VEENA CLEMENTS MD Procedure Category Date Status Time Code Status CODE 04/18/24 Transmitted 13:59 Morphine Sulfate PHA 04/18/24 In Process Injection 14:00 Lorazepam 2mg/Ml Inj PHA 04/18/24 In Process (Ativan Inj) 14:00 Acetaminophen PHA 04/18/24 In Process Suppository (Tylenol 14:00 Transfer Orders XFER 04/18/24 Transmitted 17:32 Date of Service: Apr 18, 2024 Billing Provider: VEENA CLEMENTS MD Common Visit Codes: [id number] CARE 30-74 MIN VEENA CLEMENTS MD Apr 18, 2024 17:56
[2024-04-18] MEDS: ALBUTEROL SULF 2.5 MG/0.5ML(0.5%) NEB SOLN NEB SCH (20:03)
--- NOTE | 2024-04-18 22:40 | DVHPN2 ---
Progress Note - Dictate Date Seen: Apr 18, 2024 Medical Necessity Reason Pt with a Central, PICC or Fol: Yes The following are medically ne: Wheatley Catheter Reason for wheatley catheter: Strict I&O Subjective Patient seen and examined at bedside. Currently on BiPAP Overnight events reviewed. vital signs Vital Sign Date Time Temp Pulse Resp B/P (MAP) Pulse Ox O2 Delivery O2 Flow Rate FiO2 04/18/24 22:10 98 Nasal Cannula* 2 28 04/18/24 22:10 119 26 04/18/24 20:00 97.8 78/34 (49) 97.8 Total Intake and Output 04/17/24 04/17/24 04/18/24 15:00 23:00 07:00 Intake Total 530 ml 257 ml 281.5 ml Output Total 50 ml 230 ml Balance 530 ml 207 ml 51.5 ml medications Current Medications Medications Dose Ordered Sig/Flaca Route Start Time Stop Time Status Last Admin Dose Admin Azithromycin 250 ml @ 125 mls/hr DAILY IV 04/07/24 10:00 04/18/24 09:26 125 MLS/HR Diagnostic Test (Pha) 1 strip ACHS 04/06/24 22:00 04/18/24 21:29 1 STRIP Insulin Human Regular ACHS SC 04/06/24 22:00 04/16/24 11:43 3 UNITS Dextrose 50 ml UD PRN IV 04/06/24 19:00 04/17/24 22:53 50 ML Ondansetron HCl 4 mg Q4HP PRN IV 04/06/24 19:00 Nitroglycerin 0.4 mg Q5MINP PRN SL 04/06/24 19:00 Morphine Sulfate 2 mg Q30M PRN IV 04/06/24 19:00 Midodrine 10 mg TID@0600,1200,1800 PO 04/07/24 06:00 04/16/24 05:48 10 MG Pantoprazole Sodium 40 mg HS IV 04/12/24 22:00 04/18/24 21:18 40 MG Meropenem 50 ml @ 17 mls/hr Q12HR IV 04/11/24 22:00 04/18/24 22:29 17 MLS/HR Vasopressin 20 units/Sodium Chloride 100 ml @ 9 mls/hr Q11H7M IV 04/16/24 08:00 Lorazepam 1 mg Q5MINP PRN IV 04/16/24 08:00 Norepinephrine Bitartrate 250 ml @ 3.75 mls/hr Q24H IV 04/16/24 08:00 04/18/24 03:46 22.5 MLS/HR Albuterol 2.5 mg Q4HPRN PRN NEB 04/16/24 08:45 04/16/24 18:30 2.5 MG Enoxaparin Sodium 60 mg DAILY SC 04/17/24 10:00 04/17/24 10:04 60 MG Bumetanide 25 mg/ Miscellaneous 100 ml @ 4 mls/hr Q24H IV 04/17/24 10:45 04/18/24 07:50 4 MLS/HR Acetylcysteine 200 mg Q8HR NEB 04/18/24 06:00 04/18/24 22:28 200 MG Albumin Human 100 ml @ 100 mls/hr Q8H IV 04/18/24 14:00 04/19/24 06:59 04/18/24 21:21 100 MLS/HR Morphine Sulfate 1 mg Q1HP PRN IV 04/18/24 14:00 04/18/24 17:43 1 MG Lorazepam 0.5 mg Q1HP PRN IV 04/18/24 14:00 Acetaminophen 650 mg Q6HP PRN SC 04/18/24 14:00 Albuterol 2.5 mg Q4HWA NEB 04/18/24 18:00 04/18/24 22:28 2.5 MG objective Gen.: Patient lying in bed in no apparent distress. On BiPAP. Head: Normocephalic, atraumatic. Eyes: EOMI/PERRLA. Ears: Normal hearing. Normal anatomy. Neck/trachea: Trachea midline, supple. Nose: Normal external anatomy. Mouth: Moist mucous membranes. Chest: Decreased air entry bilaterally. Coarse breath sounds. Bilateral wheezing. No rhonchi. Cardiovascular: Positive S1, positive S2. Regular rate and rhythm. Abdomen: Positive bowel sounds in all 4 quadrants. Soft, non-tender, non- distended. : Deferred. Rectal: Deferred. Skin: Warm, dry. Intact. Extremities: 2+ radial pulses bilaterally. No lower extremity edema. Neuro: Awake, alert, oriented x3. No gross motor or sensory deficits. Cranial nerves II through XII intact. Gait not assessed. laboratory and microbiology Laboratory Tests 04/18/24 03:53 Test 04/18/24 03:53 Range/Units Serum Glucose 85 74-106 mg/dL Assessment/Plan Impression: Acute hypoxic respiratory failure Dependence on supplemental oxygen Pneumonia, likely gram negative Aspiration pneumonia Down syndrome Atelectasis Legal blindness Deafness Events: Chest x-ray reviewed, demonstrates cardiomegaly w/ pulmonary vascular congestion and edema. Currently on BiPAP with IPAP 12, EPAP 5, FiO2 of 35% Continue bronchodilators/CPT. Resume Mucomyst Continue antibiotics Hypotension - on midodrine Monitor hemodynamics closely. On Levophed to maintain SBP above 90 mmHg On therapeutic Lovenox Head of bed elevation Aspiration precautions Protonix for GI prophylaxis. Bumex drip for diuresis Monitor renal function - monitor creatinine Monitor electrolytes. Supplement as necessary. Monitor hyperkalemia Nephrology recommendations appreciated. Labs and imaging reviewed. Rest of plan as noted below. Plan: Continue BiPAP Titrate to keep O2 sats above 92%. Head of bed elevation Aspiration precautions Continue antibiotics Incentive spirometry Send sputum cultures if able to produce Midodrine PO TID Accu-Cheks, ISS. Monitor renal function. Monitor electrolytes. Supplement as necessary. Monitor ins and outs. DVT prophylaxis- Lovenox. Patient is DNR/DNI. Prognosis: Guarded given patient's multiple co-morbidities. Condition: Critical Rest of plan per hospitalist and other consultants. A total of 35 minutes of critical care time was spent reviewing the patient record, examining the patient, making a diagnostic and therapeutic plan, discussing this plan with the medical personnel, following up on diagnostic studies and following the patient for clinical stability excluding any and all procedures. At least 50% of this time was spent in direct, [id number] contact. Thank you, Dr. Aldridge, for allowing me to participate in this patient's care. Further recommendations will depend on the patient's clinical course. Please do not hesitate to contact me if you have any questions or concerns. This medical document was created using an electronic medical record system with [employer] system. Although these documentations are being carefully reviewed, there may still be some phonetic and typographical changes. The errors are purely typographical, due to imperfection on the software program, and do not reflect any compromise in the patient's medical care. Dietary Evaluation Review Comments: 1. Encourage continued good oral intakes of >/=75% of meals 2. Continue texture-modified diet as medically appropriate Expected Outcomes/Goals: Weight maintenance, maintain skin integrity Plan discussed with: Patient, Other (GRICEL Del Rosario) Critical Care Time(min): 35 MALACHI WAITE MD Apr 18, 2024 22:40
[2024-04-19] VITALS (21 sets, daily range): BP systolic 79–106; BP diastolic 42–51; PULSE 114–131; RESP 15–28; TEMP 97.8–100.2; O2SAT 88–100
--- NOTE | 2024-04-19 09:16 | DVHPN2 ---
Progress Note Date Seen: Apr 19, 2024 Medical Necessity Reason Pt with a Central, PICC or Fol: Yes The following are medically ne: Wheatley Catheter Reason for wheatley catheter: Strict I&O Subjective Review of Systems: RESPIRATORY:Abnormal Other Systems: Patient seen and examined by myself today in follow-up Objective vital signs Vital Sign Date Time Temp Pulse Resp B/P (MAP) Pulse Ox O2 Delivery O2 Flow Rate FiO2 04/19/24 08:39 98.9 116 15 105/43 (63) 89 98.9 04/18/24 22:10 Nasal Cannula* 2 28 Total Intake and Output 04/18/24 04/18/24 04/19/24 15:00 23:00 07:00 Intake Total 380.75 ml 212 ml 50 ml Output Total 250 ml 10 ml Balance 380.75 ml -38 ml 40 ml medications Current Medications Medications Dose Ordered Sig/Flaca Route Start Time Stop Time Status Last Admin Dose Admin Azithromycin 250 ml @ 125 mls/hr DAILY IV 04/07/24 10:00 04/18/24 09:26 125 MLS/HR Diagnostic Test (Pha) 1 strip ACHS 04/06/24 22:00 04/19/24 05:53 1 STRIP Insulin Human Regular ACHS SC 04/06/24 22:00 04/16/24 11:43 3 UNITS Dextrose 50 ml UD PRN IV 04/06/24 19:00 04/17/24 22:53 50 ML Ondansetron HCl 4 mg Q4HP PRN IV 04/06/24 19:00 Nitroglycerin 0.4 mg Q5MINP PRN SL 04/06/24 19:00 Morphine Sulfate 2 mg Q30M PRN IV 04/06/24 19:00 Midodrine 10 mg TID@0600,1200,1800 PO 04/07/24 06:00 04/16/24 05:48 10 MG Pantoprazole Sodium 40 mg HS IV 04/12/24 22:00 04/18/24 21:18 40 MG Meropenem 50 ml @ 17 mls/hr Q12HR IV 04/11/24 22:00 04/18/24 22:29 17 MLS/HR Vasopressin 20 units/Sodium Chloride 100 ml @ 9 mls/hr Q11H7M IV 04/16/24 08:00 Lorazepam 1 mg Q5MINP PRN IV 04/16/24 08:00 Norepinephrine Bitartrate 250 ml @ 3.75 mls/hr Q24H IV 04/16/24 08:00 04/18/24 03:46 22.5 MLS/HR Albuterol 2.5 mg Q4HPRN PRN NEB 04/16/24 08:45 04/16/24 18:30 2.5 MG Enoxaparin Sodium 60 mg DAILY SC 04/17/24 10:00 04/17/24 10:04 60 MG Bumetanide 25 mg/ Miscellaneous 100 ml @ 4 mls/hr Q24H IV 04/17/24 10:45 04/18/24 07:50 4 MLS/HR Acetylcysteine 200 mg Q8HR [facility] 04/18/24 06:00 04/19/24 06:35 200 MG Morphine Sulfate 1 mg Q1HP PRN IV 04/18/24 14:00 04/18/24 17:43 1 MG Lorazepam 0.5 mg Q1HP PRN IV 04/18/24 14:00 Acetaminophen 650 mg Q6HP PRN NE 04/18/24 14:00 Albuterol 2.5 mg Q4HWA [facility] 04/18/24 18:00 04/19/24 06:35 2.5 MG Examination: LUNGS:Normal, CVS:Normal, MSK:Normal laboratory and microbiology Laboratory Tests 04/18/24 03:53 Test 04/18/24 03:53 Range/Units Serum Glucose 85 74-106 mg/dL Microbiology Date/Time Source Procedure Growth Status 04/07/24 17:10 Nose MRSA Screen - Final Methicillin Resistant S.aureus Complete 04/07/24 15:48 Urine - Catheterized Urine Culture - Final Complete 04/06/24 11:25 Blood Blood Culture - Final NO GROWTH AFTER 5 DAYS OF INCUBATION. Complete Problem List/Assessment/Plan Problem List/Assessment/Plan acute kidney injury in the setting of shock Creatinine 0.8 on 04/07/2024 Hyperkalemia Non-anion gap metabolic acidosis Metastatic cancer sepsis due to PNA Recommendations Function slightly improving Wheatley catheter Strict I&Os Bumex drip IV as ordered Conservative management for now Medical management of hyperkalemia as ordered IV pressors for Blood pressure support IV antibiotics DNR DNI Recommend comfort care--family does not want any aggressive care including dialysis-- Plan discussed with: Patient Dietary Evaluation Review Comments: 1. Encourage continued good oral intakes of >/=75% of meals 2. Continue texture-modified diet as medically appropriate Expected Outcomes/Goals: Weight maintenance, maintain skin integrity TU GERARDO MD Apr 19, 2024 09:16
[2024-04-19] MEDS ORDERED: CLINIMIX PER PHARMACY 0 ML IV SCH (15:30)
[2024-04-19] MEDS ORDERED: DEXTROSE (50%) 50ML SYRG IV SCH (17:15)
[2024-04-19] MEDS: ACCU-CHEK COMFORT CURVE STRIP VI SCH (17:18)
[2024-04-19] MEDS: InsuLIN REG 1unit/0.01ml Soln (100units/ml) SC SCH (17:19)
[2024-04-19 18:31] LABS: Alanine Aminotransferase 11 U/L (7-40); Albumin 3.4 g/dL (3.2-4.8); Anion Gap 16 (5-15); BUN/Creatinine Ratio 16.1 (10.0-20.0); Calcium 9.2 mg/dL (8.7-10.4); Glucose 90 mg/dL (74-106); Sodium 144 mmol/L (136-145)
[2024-04-19 18:32] LABS: Bilirubin, Total 0.5 mg/dL (0.2-1.0); Total Protein 6.3 g/dL (5.7-8.2)
[2024-04-19 18:33] LABS: Alkaline Phosphatase 324 U/L (46-116); Aspartate Aminotransferase 77 U/L (13-40); Blood Urea Nitrogen 52 mg/dL (9-23); Carbon Dioxide 18 mmol/L (20-31); Chloride 110 mmol/L (98-107); Phosphorus 9.4 mg/dL (2.4-5.1); Potassium 5.5 mmol/L (3.5-5.1)
--- NOTE | 2024-04-19 19:47 | DVHPN2 ---
Progress Note - Dictate Date Seen: Apr 19, 2024 Medical Necessity Reason Pt with a Central, PICC or Fol: Yes The following are medically ne: Wheatley Catheter Reason for wheatley catheter: Strict I&O Subjective Patient seen and examined at bedside. Currently on supplemental oxygen Overnight events reviewed. vital signs Vital Sign Date Time Temp Pulse Resp B/P (MAP) Pulse Ox O2 Delivery O2 Flow Rate FiO2 04/19/24 19:10 127 24 99 04/19/24 19:04 Nasal Cannula 3.0 04/19/24 19:04 32 04/19/24 16:34 97.9 106/49 (68) 97.9 Total Intake and Output 04/18/24 04/18/24 04/19/24 15:00 23:00 07:00 Intake Total 380.75 ml 212 ml 50 ml Output Total 250 ml 10 ml Balance 380.75 ml -38 ml 40 ml medications Current Medications Medications Dose Ordered Sig/Flaca Route Start Time Stop Time Status Last Admin Dose Admin Azithromycin 250 ml @ 125 mls/hr DAILY IV 04/07/24 10:00 04/19/24 10:26 125 MLS/HR Ondansetron HCl 4 mg Q4HP PRN IV 04/06/24 19:00 Cancel Nitroglycerin 0.4 mg Q5MINP PRN SL 04/06/24 19:00 Cancel Morphine Sulfate 2 mg Q30M PRN IV 04/06/24 19:00 Cancel Midodrine 10 mg TID@0600,1200,1800 PO 04/07/24 06:00 04/16/24 05:48 10 MG Pantoprazole Sodium 40 mg HS IV 04/12/24 22:00 04/18/24 21:18 40 MG Meropenem 50 ml @ 17 mls/hr Q12HR IV 04/11/24 22:00 04/19/24 13:10 17 MLS/HR Lorazepam 1 mg Q5MINP PRN IV 04/16/24 08:00 Cancel Albuterol 2.5 mg Q4HPRN PRN NEB 04/16/24 08:45 04/16/24 18:30 2.5 MG Bumetanide 25 mg/ Miscellaneous 100 ml @ 4 mls/hr Q24H IV 04/17/24 10:45 04/19/24 10:14 4 MLS/HR Acetylcysteine 200 mg Q8HR NEB 04/18/24 06:00 04/19/24 14:16 200 MG Lorazepam 0.5 mg Q1HP PRN IV 04/18/24 14:00 Cancel Acetaminophen 650 mg Q6HP PRN IN 04/18/24 14:00 Albuterol 2.5 mg Q4HWA NEB 04/18/24 18:00 04/19/24 19:04 2.5 MG Amino Acids 0 ml @ 0 mls/hr PER PHARMACY IV 04/19/24 15:30 Dextrose 50 ml UD IV 04/19/24 17:15 Cancel Amino Acids/ Electrolytes/ Dextrose 1,000 ml @ 41 mls/hr DAILY@2200 IV 04/19/24 22:00 Enoxaparin Sodium 30 mg DAILY SC 04/20/24 10:00 objective Gen.: Patient lying in bed in no apparent distress. On supplemental oxygen Head: Normocephalic, atraumatic. Eyes: EOMI/PERRLA. Ears: Normal hearing. Normal anatomy. Neck/trachea: Trachea midline, supple. Nose: Normal external anatomy. Mouth: Moist mucous membranes. Chest: Decreased air entry bilaterally. Coarse breath sounds. Bilateral wheezing. No rhonchi. Cardiovascular: Positive S1, positive S2. Regular rate and rhythm. Abdomen: Positive bowel sounds in all 4 quadrants. Soft, non-tender, non- distended. : Deferred. Rectal: Deferred. Skin: Warm, dry. Intact. Extremities: 2+ radial pulses bilaterally. No lower extremity edema. Neuro: Awake, alert, oriented x3. No gross motor or sensory deficits. Cranial nerves II through XII intact. Gait not assessed. laboratory and microbiology Laboratory Tests 04/19/24 17:50 04/18/24 03:53 Test 04/19/24 17:50 Range/Units Serum Glucose 90 74-106 mg/dL Assessment/Plan Impression: Acute hypoxic respiratory failure Dependence on supplemental oxygen Pneumonia, likely gram negative Aspiration pneumonia Down syndrome Atelectasis Legal blindness Deafness Events: Chest x-ray reviewed, demonstrates cardiomegaly w/ pulmonary vascular congestion and edema. Currently on supplemental oxygen 3 LPM NC. Taper O2 as tolerated Continue bronchodilators/CPT. Mucomyst Continue antibiotics Monitor WBC - trended down to 13.2 K. Hypotension - on midodrine Monitor hemodynamics closely. On therapeutic Lovenox Monitor Hgb - 7.2 g/dL Head of bed elevation Aspiration precautions Protonix for GI prophylaxis. Bumex drip for diuresis Monitor renal function - monitor creatinine Monitor electrolytes. Supplement as necessary. Monitor hyperkalemia Nephrology recommendations appreciated. NPO Start Clinimix for nutritional support Swallow eval on Sunday Comfort measures Pt is DNR/DNI. Overall poor prognosis, poor chance of meaningful recovery. Updated father at bedside. Labs and imaging reviewed. Rest of plan as noted below. Plan: Continue supplemental oxygen Titrate to keep O2 sats above 92%. Head of bed elevation Aspiration precautions Continue antibiotics Incentive spirometry Send sputum cultures if able to produce Midodrine PO TID Accu-Cheks, ISS. Monitor renal function. Monitor electrolytes. Supplement as necessary. Monitor ins and outs. DVT prophylaxis- Lovenox. Patient is DNR/DNI. Prognosis: Poor given patient's multiple co-morbidities. Rest of plan per hospitalist and other consultants. Thank you, Dr. Aldridge, for allowing me to participate in this patient's care. Further recommendations will depend on the patient's clinical course. Please do not hesitate to contact me if you have any questions or concerns. This medical document was created using an electronic medical record system with [employer] computerized dictation system. Although these documentations are being carefully reviewed, there may still be some phonetic and typographical changes. The errors are purely typographical, due to imperfection on the software program, and do not reflect any compromise in the patient's medical care. Dietary Evaluation Review Comments: 1. Encourage continued good oral intakes of >/=75% of meals 2. Continue texture-modified diet as medically appropriate Expected Outcomes/Goals: Weight maintenance, maintain skin integrity Plan discussed with: Other (GRICEL Martínez/STEFANIE) MALACHI WAITE MD Apr 19, 2024 19:47
--- NOTE | 2024-04-19 20:12 | DVHPN2 ---
Subjective lethargic/non verbal at baseline/parents at bedside Changes from previous H/P or p: No Changes Objective Vitals Vital Signs Date Time Temp Pulse Resp B/P (MAP) Pulse Ox O2 Delivery O2 Flow Rate FiO2 04/19/24 19:10 127 24 99 04/19/24 19:04 Nasal Cannula 3.0 04/19/24 19:04 32 04/19/24 16:34 97.9 106/49 (68) 97.9 Intake/Output Intake and Output 04/19/24 07:00 Intake Total 642.75 ml Output Total 260 ml Balance 382.75 ml Intake Oral 0 ml IV Total 642.75 ml Output Urine Total 260 ml # Voids 1 General Appearance: Alert, mild distress, Other (Disoriented to place and time) HEENT: PERRLA Lungs: Other (Bilateral mild rhonchi) Cardiovascular: Regular rate, Normal S1, Normal S2, No murmurs Abdomen: Normal bowel sounds, Soft, No tenderness Musculoskeletal: Other (bedbound at baseline from cerebral palsy//non verbal/) Extremities: No edema Medications Current Medications Medications Dose Ordered Sig/Flaca Route Start Time Stop Time Status Last Admin Dose Admin Azithromycin 250 ml @ 125 mls/hr DAILY IV 04/07/24 10:00 04/19/24 10:26 125 MLS/HR Ondansetron HCl 4 mg Q4HP PRN IV 04/06/24 19:00 Cancel Nitroglycerin 0.4 mg Q5MINP PRN SL 04/06/24 19:00 Cancel Morphine Sulfate 2 mg Q30M PRN IV 04/06/24 19:00 Cancel Midodrine 10 mg TID@0600,1200,1800 PO 04/07/24 06:00 04/16/24 05:48 10 MG Pantoprazole Sodium 40 mg HS IV 04/12/24 22:00 04/18/24 21:18 40 MG Meropenem 50 ml @ 17 mls/hr Q12HR IV 04/11/24 22:00 04/19/24 13:10 17 MLS/HR Lorazepam 1 mg Q5MINP PRN IV 04/16/24 08:00 Cancel Albuterol 2.5 mg Q4HPRN PRN NEB 04/16/24 08:45 04/16/24 18:30 2.5 MG Bumetanide 25 mg/ Miscellaneous 100 ml @ 4 mls/hr Q24H IV 04/17/24 10:45 04/19/24 10:14 4 MLS/HR Acetylcysteine 200 mg Q8HR NEB 04/18/24 06:00 04/19/24 14:16 200 MG Lorazepam 0.5 mg Q1HP PRN IV 04/18/24 14:00 Cancel Acetaminophen 650 mg Q6HP PRN MS 04/18/24 14:00 Albuterol 2.5 mg Q4HWA NEB 04/18/24 18:00 04/19/24 19:04 2.5 MG Amino Acids 0 ml @ 0 mls/hr PER PHARMACY IV 04/19/24 15:30 Dextrose 50 ml UD IV 04/19/24 17:15 Cancel Amino Acids/ Electrolytes/ Dextrose 1,000 ml @ 41 mls/hr DAILY@2200 IV 04/19/24 22:00 Enoxaparin Sodium 30 mg DAILY SC 04/20/24 10:00 Laboratory Results Laboratory Tests 04/18/24 03:53 04/19/24 17:50 Chemistry Test 04/19/24 17:50 Albumin 3.4 g/dL (3.2-4.8) Calcium Level 9.2 mg/dL (8.7-10.4) Magnesium Level 2.0 mg/dL (1.6-2.6) Phosphorus Level 9.4 mg/dL (2.4-5.1) H Total Protein 6.3 g/dL (5.7-8.2) LFT Test 04/19/24 17:50 Alanine Aminotransferase (ALT) 11 U/L (7-40) Alkaline Phosphatase 324 U/L (46-116) H Aspartate Amino Transferase (AST) 77 U/L (13-40) H Total Bilirubin 0.5 mg/dL (0.2-1.0) Urinalysis Test 04/07/24 15:48 04/18/24 11:50 Urine Color Yellow (Yellow) Urine Clarity Turbid (Clear) H Urine pH 5.0 (5.0-9.0) Urine Specific [place] 1.015 (1.001-1.035) Urine Protein Trace (Negative) H Urine Ketones Negative (Negative) Urine Blood Negative /uL (Negative) Urine Nitrite Negative (Negative) Urine Bilirubin Negative (Negative) Urine Urobilinogen Normal mg/dL (Negative) Urine Leukocyte Esterase Negative /uL (Negative) Urine RBC <1 /hpf (0 - 4) Urine Microscopic WBC 2 /HPF (0-5) Urine Squamous Epithelial Cells None seen /hpf (<5) Urine Bacteria Few /hpf (None Seen) H Urine Granular Casts Few /lpf (0) Urine Mucus Few (None Seen) Urine Yeast (Budding) Occasional /hpf (None Urine Glucose Normal mg/dL (Normal) Urine Creatinine 50.60 mg/dL (30.0-125.0) Urine Protein/Creatinine Ratio 1.49 Urine Sodium 75 mmol/L (40-220) Urine Total Protein 75.4 mg/dL (1-14) H Microbiology Microbiology Date/Time Source Procedure Growth Status 04/07/24 17:10 Nose MRSA Screen - Final Methicillin Resistant S.aureus Complete 04/07/24 15:48 Urine - Catheterized Urine Culture - Final Complete 04/06/24 11:25 Blood Blood Culture - Final NO GROWTH AFTER 5 DAYS OF INCUBATION. Complete Assessment/Plan Assessment/Plan sepsis acute renal failure from above cerebral palsy with bedbound status at baseline ? seizure episode- meds/orders reviwed colon cancer with mets chf secondary to renal failure fmily has decided on hospice as recommended by pt oncologist- orders placed Plan discussed with: Other (parents) My Orders Orders - CALLIE COLLINS MD Procedure Category Date Status Time Npo (Nothing By DIET 04/19/24 Transmitted Mouth) Diet Lunch Enoxaparin Sodium PHA 04/20/24 In Process (Lovenox) 10:00 Refer To Hospice TAJ 04/19/24 In Process 19:07 Date of Service: Apr 19, 2024 Billing Provider: CALLIE COLLINS MD Common Visit Codes: [id number] INP/OBS CARE(LOW) CALLIE COLLINS MD Apr 19, 2024 20:12
[2024-04-19] MEDS: AMINO ACID INFUSION IN D10W 1,000 ML IV SCH (21:44)
[2024-04-20] VITALS (15 sets, daily range): BP systolic 86–104; BP diastolic 34–45; PULSE 103–127; RESP 19–26; TEMP 97.6–98.3; O2SAT 90–100
[2024-04-20 05:55] LABS: Alanine Aminotransferase 11 U/L (7-40); Albumin 3.3 g/dL (3.2-4.8); Anion Gap 15 (5-15); BUN/Creatinine Ratio 14.2 (10.0-20.0); Sodium 144 mmol/L (136-145)
[2024-04-20 05:56] LABS: Bilirubin, Total 0.4 mg/dL (0.2-1.0); Total Protein 6.3 g/dL (5.7-8.2)
[2024-04-20 06:19] LABS: Alkaline Phosphatase 320 U/L (46-116); Aspartate Aminotransferase 72 U/L (13-40); Blood Urea Nitrogen 53 mg/dL (9-23); Carbon Dioxide 19 mmol/L (20-31); Chloride 110 mmol/L (98-107); Glucose 149 mg/dL (74-106); Phosphorus 10.3 mg/dL (2.4-5.1)
[2024-04-20 06:24] LABS: Potassium 5.7 mmol/L (3.5-5.1)
[2024-04-20] MEDS: ENOXAPARIN SOD 60 MG/0.6 ML SYRINGE SC SCH (08:43)
--- NOTE | 2024-04-20 09:56 | DVHPN2 ---
Progress Note Date Seen: Apr 20, 2024 Medical Necessity Reason Pt with a Central, PICC or Fol: Yes The following are medically ne: Wheatley Catheter Reason for wheatley catheter: Strict I&O Subjective Patient reports: No new complaints Other Systems: Patient seen and examined by myself today in follow-up Objective vital signs Vital Sign Date Time Temp Pulse Resp B/P (MAP) Pulse Ox O2 Delivery O2 Flow Rate FiO2 04/20/24 09:39 109 22 100 04/20/24 09:32 Nasal Cannula* 3 32 04/20/24 08:52 97.6 104/41 (62) 97.6 Total Intake and Output 04/19/24 04/19/24 04/20/24 15:00 23:00 07:00 Intake Total 250 ml 86 ml 98 ml Balance 250 ml 86 ml 98 ml medications Current Medications Medications Dose Ordered Sig/Flaca Route Start Time Stop Time Status Last Admin Dose Admin Azithromycin 250 ml @ 125 mls/hr DAILY IV 04/07/24 10:00 04/20/24 08:01 125 MLS/HR Ondansetron HCl 4 mg Q4HP PRN IV 04/06/24 19:00 Cancel Nitroglycerin 0.4 mg Q5MINP PRN SL 04/06/24 19:00 Cancel Morphine Sulfate 2 mg Q30M PRN IV 04/06/24 19:00 Cancel Midodrine 10 mg TID@0600,1200,1800 PO 04/07/24 06:00 04/16/24 05:48 10 MG Pantoprazole Sodium 40 mg HS IV 04/12/24 22:00 04/19/24 21:45 40 MG Meropenem 50 ml @ 17 mls/hr Q12HR IV 04/11/24 22:00 04/20/24 08:41 17 MLS/HR Lorazepam 1 mg Q5MINP PRN IV 04/16/24 08:00 Cancel Albuterol 2.5 mg Q4HPRN PRN NEB 04/16/24 08:45 04/16/24 18:30 2.5 MG Bumetanide 25 mg/ Miscellaneous 100 ml @ 4 mls/hr Q24H IV 04/17/24 10:45 04/19/24 10:14 4 MLS/HR Acetylcysteine 200 mg Q8HR NEB 04/18/24 06:00 04/20/24 05:59 200 MG Lorazepam 0.5 mg Q1HP PRN IV 04/18/24 14:00 Cancel Acetaminophen 650 mg Q6HP PRN NE 04/18/24 14:00 Albuterol 2.5 mg Q4HWA NEB 04/18/24 18:00 04/20/24 09:32 2.5 MG Amino Acids 0 ml @ 0 mls/hr PER PHARMACY IV 04/19/24 15:30 Dextrose 50 ml UD IV 04/19/24 17:15 Cancel Amino Acids/ Electrolytes/ Dextrose 1,000 ml @ 41 mls/hr DAILY@2200 IV 04/19/24 22:00 04/19/24 21:44 41 MLS/HR Enoxaparin Sodium 30 mg DAILY SC 04/20/24 10:00 04/20/24 08:43 30 MG laboratory and microbiology Laboratory Tests 04/20/24 05:11 04/18/24 03:53 Test 04/20/24 05:11 Range/Units Serum Glucose 149 H 74-106 mg/dL Microbiology Date/Time Source Procedure Growth Status 04/07/24 17:10 Nose MRSA Screen - Final Methicillin Resistant S.aureus Complete 04/07/24 15:48 Urine - Catheterized Urine Culture - Final Complete 04/06/24 11:25 Blood Blood Culture - Final NO GROWTH AFTER 5 DAYS OF INCUBATION. Complete Problem List/Assessment/Plan Problem List/Assessment/Plan acute kidney injury in the setting of shock Creatinine 0.8 on 04/07/2024 Hyperkalemia Cerebral palsy, bed-bound Non-anion gap metabolic acidosis Metastatic colon cancer sepsis due to PNA Recommendations Function slightly improving Wheatley catheter Strict I&Os Bumex drip IV as ordered Conservative management for now Medical management of hyperkalemia as ordered IV pressors for Blood pressure support IV antibiotics DNR DNI noted plan for hospice discharge Plan discussed with: Other (Nurse) Dietary Evaluation Review Comments: 1. Encourage continued good oral intakes of >/=75% of meals 2. Continue texture-modified diet as medically appropriate Expected Outcomes/Goals: Weight maintenance, maintain skin integrity TU GERARDO MD Apr 20, 2024 09:56
--- NOTE | 2024-04-20 19:07 | DVHPN2 ---
Subjective lethargic/non verbal at baseline/parents at bedside Changes from previous H/P or p: No Changes Objective Vitals Vital Signs Date Time Temp Pulse Resp B/P (MAP) Pulse Ox O2 Delivery O2 Flow Rate FiO2 04/20/24 18:43 103 20 97 04/20/24 18:31 Nasal Cannula 4.0 04/20/24 18:31 36 04/20/24 17:32 97.9 100/34 (56) 97.9 Intake/Output Intake and Output 04/20/24 07:00 Intake Total 434 ml Balance 434 ml Intake Oral 0 ml IV Total 434 ml # Bowel Movements 1 General Appearance: mild distress, Other (Disoriented to place and time/lethargic/no response to call/noxious stimulii) HEENT: PERRLA Lungs: Other (Bilateral mild rhonchi) Cardiovascular: Regular rate, Normal S1, Normal S2, No murmurs Abdomen: Normal bowel sounds, Soft, No tenderness Musculoskeletal: Other (bedbound at baseline from cerebral palsy//non verbal/) Extremities: No edema Neuro: Other (lethargic//no response to noxious stimulii) Medications Current Medications Medications Dose Ordered Sig/[place] Route Start Time Stop Time Status Last Admin Dose Admin Azithromycin 250 ml @ 125 mls/hr DAILY IV 04/07/24 10:00 04/20/24 08:01 125 MLS/HR Ondansetron HCl 4 mg Q4HP PRN IV 04/06/24 19:00 Cancel Nitroglycerin 0.4 mg Q5MINP PRN SL 04/06/24 19:00 Cancel Morphine Sulfate 2 mg Q30M PRN IV 04/06/24 19:00 Cancel Midodrine 10 mg TID@0600,1200,1800 PO 04/07/24 06:00 04/16/24 05:48 10 MG Pantoprazole Sodium 40 mg HS IV 04/12/24 22:00 04/19/24 21:45 40 MG Meropenem 50 ml @ 17 mls/hr Q12HR IV 04/11/24 22:00 04/20/24 08:41 17 MLS/HR Lorazepam 1 mg Q5MINP PRN IV 04/16/24 08:00 Cancel Albuterol 2.5 mg Q4HPRN PRN NEB 04/16/24 08:45 04/16/24 18:30 2.5 MG Bumetanide 25 mg/ Miscellaneous 100 ml @ 4 mls/hr Q24H IV 04/17/24 10:45 04/20/24 11:36 4 MLS/HR Acetylcysteine 200 mg Q8HR [facility] 04/18/24 06:00 04/20/24 13:54 200 MG Lorazepam 0.5 mg Q1HP PRN IV 04/18/24 14:00 Cancel Acetaminophen 650 mg Q6HP PRN NC 04/18/24 14:00 Albuterol 2.5 mg Q4HWA [facility] 04/18/24 18:00 04/20/24 18:37 2.5 MG Amino Acids 0 ml @ 0 mls/hr PER PHARMACY IV 04/19/24 15:30 Dextrose 50 ml UD IV 04/19/24 17:15 Cancel Amino Acids/ Electrolytes/ Dextrose 1,000 ml @ 41 mls/hr DAILY@2200 IV 04/19/24 22:00 04/19/24 21:44 41 MLS/HR Enoxaparin Sodium 30 mg DAILY SC 04/20/24 10:00 04/20/24 08:43 30 MG Laboratory Results Laboratory Tests 04/18/24 03:53 04/20/24 05:11 Chemistry Test 04/20/24 05:11 Albumin 3.3 g/dL (3.2-4.8) Calcium Level 9.0 mg/dL (8.7-10.4) Magnesium Level 2.0 mg/dL (1.6-2.6) Phosphorus Level 10.3 mg/dL (2.4-5.1) H Total Protein 6.3 g/dL (5.7-8.2) LFT Test 04/20/24 05:11 Alanine Aminotransferase (ALT) 11 U/L (7-40) Alkaline Phosphatase 320 U/L (46-116) H Aspartate Amino Transferase (AST) 72 U/L (13-40) H Total Bilirubin 0.4 mg/dL (0.2-1.0) Urinalysis Test 04/07/24 15:48 04/18/24 11:50 Urine Color Yellow (Yellow) Urine Clarity Turbid (Clear) H Urine pH 5.0 (5.0-9.0) Urine Specific [place] 1.015 (1.001-1.035) Urine Protein Trace (Negative) H Urine Ketones Negative (Negative) Urine Blood Negative /uL (Negative) Urine Nitrite Negative (Negative) Urine Bilirubin Negative (Negative) Urine Urobilinogen Normal mg/dL (Negative) Urine Leukocyte Esterase Negative /uL (Negative) Urine RBC <1 /hpf (0 - 4) Urine Microscopic WBC 2 /HPF (0-5) Urine Squamous Epithelial Cells None seen /hpf (<5) Urine Bacteria Few /hpf (None Seen) H Urine Granular Casts Few /lpf (0) Urine Mucus Few (None Seen) Urine Yeast (Budding) Occasional /hpf (None Urine Glucose Normal mg/dL (Normal) Urine Creatinine 50.60 mg/dL (30.0-125.0) Urine Protein/Creatinine Ratio 1.49 Urine Sodium 75 mmol/L (40-220) Urine Total Protein 75.4 mg/dL (1-14) H Microbiology Microbiology Date/Time Source Procedure Growth Status 04/07/24 17:10 Nose MRSA Screen - Final Methicillin Resistant S.aureus Complete 04/07/24 15:48 Urine - Catheterized Urine Culture - Final Complete 04/06/24 11:25 Blood Blood Culture - Final NO GROWTH AFTER 5 DAYS OF INCUBATION. Complete Assessment/Plan Assessment/Plan sepsis acute renal failure from above cerebral palsy with bedbound status at baseline ? seizure episode- meds/orders reviwed colon cancer with mets chf secondary to renal failure fmily has decided on hospice as recommended by pt oncologist- orders placed Plan discussed with: Other (no family at bedside today) My Orders Orders - CALLIE COLLINS MD Procedure Category Date Status Time Refer To Hospice TAJ 04/19/24 In Process 19:07 Mrsa Screen DOMENICO 04/20/24 In Process 08:50 Date of Service: Apr 20, 2024 Billing Provider: CALLIE COLLINS MD Common Visit Codes: NOT BILLABLE CALLIE COLLINS MD Apr 20, 2024 19:07
--- NOTE | 2024-04-20 22:41 | DVHPN2 ---
Progress Note - Dictate Date Seen: Apr 20, 2024 Medical Necessity Reason Pt with a Central, PICC or Fol: Yes The following are medically ne: Wheatley Catheter Reason for wheatley catheter: Strict I&O Subjective Patient seen and examined at bedside. Remains on supplemental oxygen Overnight events reviewed. vital signs Vital Sign Date Time Temp Pulse Resp B/P (MAP) Pulse Ox O2 Delivery O2 Flow Rate FiO2 04/20/24 18:43 103 20 97 04/20/24 18:31 Nasal Cannula 4.0 04/20/24 18:31 36 04/20/24 17:32 97.9 100/34 (56) 97.9 Total Intake and Output 04/19/24 04/19/24 04/20/24 15:00 23:00 07:00 Intake Total 250 ml 86 ml 98 ml Balance 250 ml 86 ml 98 ml medications Current Medications Medications Dose Ordered Sig/Flaca Route Start Time Stop Time Status Last Admin Dose Admin Azithromycin 250 ml @ 125 mls/hr DAILY IV 04/07/24 10:00 04/20/24 08:01 125 MLS/HR Ondansetron HCl 4 mg Q4HP PRN IV 04/06/24 19:00 Cancel Nitroglycerin 0.4 mg Q5MINP PRN SL 04/06/24 19:00 Cancel Morphine Sulfate 2 mg Q30M PRN IV 04/06/24 19:00 Cancel Midodrine 10 mg TID@0600,1200,1800 PO 04/07/24 06:00 04/16/24 05:48 10 MG Pantoprazole Sodium 40 mg HS IV 04/12/24 22:00 04/19/24 21:45 40 MG Meropenem 50 ml @ 17 mls/hr Q12HR IV 04/11/24 22:00 04/20/24 08:41 17 MLS/HR Lorazepam 1 mg Q5MINP PRN IV 04/16/24 08:00 Cancel Albuterol 2.5 mg Q4HPRN PRN NEB 04/16/24 08:45 04/16/24 18:30 2.5 MG Bumetanide 25 mg/ Miscellaneous 100 ml @ 4 mls/hr Q24H IV 04/17/24 10:45 04/20/24 11:36 4 MLS/HR Acetylcysteine 200 mg Q8HR NEB 04/18/24 06:00 04/20/24 13:54 200 MG Lorazepam 0.5 mg Q1HP PRN IV 04/18/24 14:00 Cancel Acetaminophen 650 mg Q6HP PRN CA 04/18/24 14:00 Albuterol 2.5 mg Q4HWA NEB 04/18/24 18:00 04/20/24 18:37 2.5 MG Amino Acids 0 ml @ 0 mls/hr PER PHARMACY IV 04/19/24 15:30 Dextrose 50 ml UD IV 04/19/24 17:15 Cancel Amino Acids/ Electrolytes/ Dextrose 1,000 ml @ 41 mls/hr DAILY@2200 IV 04/19/24 22:00 04/19/24 21:44 41 MLS/HR Enoxaparin Sodium 30 mg DAILY SC 04/20/24 10:00 04/20/24 08:43 30 MG objective Gen.: Patient lying in bed in no apparent distress. On supplemental oxygen Head: Normocephalic, atraumatic. Eyes: EOMI/PERRLA. Ears: Normal hearing. Normal anatomy. Neck/trachea: Trachea midline, supple. Nose: Normal external anatomy. Mouth: Moist mucous membranes. Chest: Decreased air entry bilaterally. Coarse breath sounds. Bilateral wheezing. No rhonchi. Cardiovascular: Positive S1, positive S2. Regular rate and rhythm. Abdomen: Positive bowel sounds in all 4 quadrants. Soft, non-tender, non- distended. : Deferred. Rectal: Deferred. Skin: Warm, dry. Intact. Extremities: 2+ radial pulses bilaterally. No lower extremity edema. Neuro: Awake, alert, oriented x3. No gross motor or sensory deficits. Cranial nerves II through XII intact. Gait not assessed. laboratory and microbiology Laboratory Tests 04/20/24 05:11 04/18/24 03:53 Test 04/20/24 05:11 Range/Units Serum Glucose 149 H 74-106 mg/dL Assessment/Plan Impression: Acute hypoxic respiratory failure Dependence on supplemental oxygen Pneumonia, likely gram negative Aspiration pneumonia Down syndrome Atelectasis Legal blindness Deafness Events: Remains on supplemental oxygen 2 LPM NC. Taper O2 as tolerated Continue bronchodilators/CPT. Continue antibiotics Monitor WBC - trended down to 13.2 K. Hypotension - on midodrine Monitor hemodynamics closely. On therapeutic Lovenox Monitor Hgb Head of bed elevation Aspiration precautions Protonix for GI prophylaxis. Bumex drip for diuresis Monitor renal function - creatinine trending up to 3.72 Monitor electrolytes. Supplement as necessary. Monitor hyperkalemia Metabolic acidosis Nephrology recommendations appreciated. NPO Clinimix for nutritional support Swallow eval on Sunday Comfort measures Pt is DNR/DNI. Overall poor prognosis, poor chance of meaningful recovery. Labs and imaging reviewed. Addendum: Patient . Time of pronounced 1943 hours. Plan: Continue supplemental oxygen Titrate to keep O2 sats above 92%. Head of bed elevation Aspiration precautions Continue antibiotics Incentive spirometry Send sputum cultures if able to produce Midodrine PO TID Accu-Cheks, ISS. Monitor renal function. Monitor electrolytes. Supplement as necessary. Monitor ins and outs. DVT prophylaxis- Lovenox. Patient is DNR/DNI. Prognosis: Poor given patient's multiple co-morbidities. Rest of plan per hospitalist and other consultants. Thank you, Dr. Aldridge, for allowing me to participate in this patient's care. Further recommendations will depend on the patient's clinical course. Please do not hesitate to contact me if you have any questions or concerns. This medical document was created using an electronic medical record system with [employer] dictation system. Although these documentations are being carefully reviewed, there may still be some phonetic and typographical changes. The errors are purely typographical, due to imperfection on the software program, and do not reflect any compromise in the patient's medical care. Dietary Evaluation Review Comments: 1. Encourage continued good oral intakes of >/=75% of meals 2. Continue texture-modified diet as medically appropriate Expected Outcomes/Goals: Weight maintenance, maintain skin integrity Plan discussed with: Other (GRICEL Taylor) MALACHI WAITE MD Apr 20, 2024 22:41
== END 2024-04-20 19:45 | DRG 871 ==
LOC: ER 10:48 → EDBD 10:48 → TELE 18:56 → TELE-CENTR 04-07 16:09 → TELE 04-08 14:25 → CENTRAL 04-08 14:35 → OVERFLOW 04-09 12:35 → TELE-CENTR 04-09 12:39 → ICU WEST 04-10 04:14 → TELE-EAST 04-11 23:59 → ICU WEST 04-16 08:10 → EAST 04-18 18:27
PROVIDERS: ADMIT Internal Medicine; ATTEND Internal Medicine
PROC: 05HB33Z Insertion of Infusion Device into Right Basilic Vein, Percutaneous Approach (ICD-10-PCS; principal; 2024-04-14)
PROC: B54MZZA Ultrasonography of Right Upper Extremity Veins, Guidance (ICD-10-PCS; 2024-04-14)
PROC: 5A0935A Assistance with Respiratory Ventilation, Less than 24 Consecutive Hours, High Flow/Velocity Cannula (ICD-10-PCS; 2024-04-16)
PROC: 5A09357 Assistance with Respiratory Ventilation, Less than 24 Consecutive Hours, Continuous Positive Airway Pressure (ICD-10-PCS; 2024-04-18)
DX: A41.51 Sepsis due to Escherichia coli [E. coli] (principal); G93.41 Metabolic encephalopathy; J15.69 Pneumonia due to other Gram-negative bacteria; J69.0 Pneumonitis due to inhalation of food and vomit; J96.01 Acute respiratory failure with hypoxia; N17.9 Acute kidney failure, unspecified; N39.0 Urinary tract infection, site not specified; C78.7 Secondary malignant neoplasm of liver and intrahepatic bile duct; C18.9 Malignant neoplasm of colon, unspecified; E87.20 Acidosis, unspecified; R57.9 Shock, unspecified; Z66 Do not resuscitate; E11.9 Type 2 diabetes mellitus without complications; D64.9 Anemia, unspecified; E78.5 Hyperlipidemia, unspecified; E83.42 Hypomagnesemia; R56.9 Unspecified convulsions; E87.5 Hyperkalemia; I50.9 Heart failure, unspecified; I11.0 Hypertensive heart disease with heart failure; Q90.9 Down syndrome, unspecified; Z74.01 Bed confinement status; Z99.81 Dependence on supplemental oxygen; Z79.899 Other long term (current) drug therapy; Z79.2 Long term (current) use of antibiotics; Z85.038 Personal history of other malignant neoplasm of large intestine; Z79.84 Long term (current) use of oral hypoglycemic drugs
CPT/HCPCS: 36415; 36600; 71045; 74018; 80048; 80053; 80061; 81001; 82570; 82805; 82962; 83036; 83605; 83735; 83880; 84100; 84132; 84156; 84300; 84443; 85007; 85025; 85027; 85379; 87040; 87081; 87086; 92507; 92610; 93005; 93306; 94640; 94667; 94668; 94729; 96361; 96365; 96367; 99291; G0378; J1815; J1885; J2185; J2470; P9047